=== PATIENT | female | born 1940 | race Caucasian/White ===

== ENCOUNTER 2017-09-07 07:17 | Day surgery (SDC) | payer MEDICARE ==
--- NOTE | 2017-09-04 13:33 | HP ---
DATE OF SURGERY: 09/07/2017 ADMISSION DIAGNOSIS: Subcutaneous mass 6 cm right upper extremity. ANTICIPATED PROCEDURE: Excision. HISTORY OF PRESENT ILLNESS: The patient has enlarging lesion right upper extremity subcu mass probable lipoma. PAST MEDICAL HISTORY: ALLERGIES: NONE. MEDICATIONS: Aspirin, Coreg, Lasix, Elsie, Zestril. PAST SURGICAL HISTORY: Oophorectomy. SOCIAL HISTORY: Negative. FAMILY HISTORY: Negative. REVIEW OF SYSTEMS: Atrial fibrillation. PHYSICAL EXAMINATION: VITAL SIGNS: Normal. CHEST: Clear. COR: Regular. IMPRESSION: Lesion right upper arm. PLAN: Excision.
[~2017-09-07 07:17] MED LIST: Lactated Ringers 1,000 ML IV ONE; Lactated Ringers 1,000 ML IV SCH; XYLOCAINE 1% HCL 20 ML MDV ONE
[2017-09-07] MEDS ORDERED: DEMEROL 50 MG SDV IV ONE (07:18)
[2017-09-07] MEDS ORDERED: VERSED 5 MG/5 ML IV ONE (07:18)
[2017-09-07] MEDS ORDERED: Lactated Ringers 0 ML IV ONE (07:30)
[2017-09-07 08:46] LABS: INR 1.03 (0.8-3.0)
[2017-09-07 11:38] VITALS: O2SAT 96
[2017-09-07 12:03] VITALS: BP 120/66; PULSE 62
--- NOTE | 2017-09-07 14:12 | OP ---
SURGERY DATE/TIME: 09/07/2017 0935 PREOPERATIVE DIAGNOSIS: A 4 cm subcutaneous mass right upper arm both enlarging and painful. POSTOPERATIVE DIAGNOSIS: A 4 cm subcutaneous mass right upper arm both enlarging and painful. PROCEDURE: Excision and closure. SURGEON: Desean Castillo M.D. ANESTHESIA: 15 minutes IV sedation monitored. COMPLICATIONS: None. CONDITION: Stable. INDICATION: A patient requiring removal of a lesion on the upper arm. DESCRIPTION OF PROCEDURE: She is taken to surgery. IV sedation was titrated for 15 minutes. Oximetry is kept over 90% and comfort level satisfactory. Routine prep and drape. Time out. 1% lidocaine was placed. A multi-lobular lipoma was removed in its entirety. It was 4 cm. Hemostasis obtained with electrocautery. Hemostasis satisfactory. Skin closed with 4-0 Vicryl and Steri-Strips. The patient tolerated the procedure satisfactorily.
== END 2017-09-07 12:00 | disposition home or self-care (01) ==
LOC: SDC 07:17
PROVIDERS: ATTEND Surgery
PROC: 0JBD0ZZ Excision of Right Upper Arm Subcutaneous Tissue and Fascia, Open Approach (ICD-10-PCS; principal; 2017-09-07)
DX: D17.21 Benign lipomatous neoplasm of skin and subcutaneous tissue of right arm (principal); R22.31 Localized swelling, mass and lump, right upper limb; R20.8 Other disturbances of skin sensation; I48.91 Unspecified atrial fibrillation; Z79.01 Long term (current) use of anticoagulants; Z79.899 Other long term (current) drug therapy
CPT/HCPCS: 36415; 85610; J2175; J2250

== ENCOUNTER 2018-11-04 06:46 | Emergency (ER) | payer MEDICARE ==
[2018-11-04] MEDS ORDERED: Sodium Chloride 0.9% 1000 ML 1,000 ML IV STA (07:13)
[2018-11-04] MEDS ORDERED: Sodium Chloride 0.9% 1000 ML 1,000 ML ONE (07:19)
[2018-11-04 07:26] LABS: BASOPHIL % 0.2 % (0.0-0.4); Basophil (Absolute #) 0.02 (0-0.4); Eosinophil % 0.2 % (0.00-5.0); Eosinophil (Absolute #) 0.03 (0-0.5); Granulocyte Absolute (ANC) 9.78 (1.4-6.9); Granulocytes % 80.8 % (36.0-66.0); Hematocrit 32.1 % (35-47); Hemoglobin 10.4 gm/dl (12.0-16.0); Lymphocyte (Absolute #) 1.44 (1.0-4.6); Lymphocytes % 11.9 % (24.0-44.0); Mean Cell Volume 93.3 fl (78-100); Mean Corpuscular Hemoglobin 30.2 pg (26-32); Mean Corpuscular Hgb Concent. 32.4 g/dl (32-36); Mean Platelet Volume 11.1 fl (6-9.5); Monocyte (Absolute #) 0.83 (0.0-1.3); Monocytes % 6.9 % (0.0-12.0); Platelet Count 204 K/mm3 (150-450); Red Blood Count 3.44 M/mm3 (4.1-5.4); Red Cell Distribution Width 13.6 % (11.5-14.0); White Blood Count 12.1 K/mm3 (4.0-10.5)
[2018-11-04 07:31] LABS: Lactic Acid 1.9 (0.4-2.0)
[2018-11-04 07:37] LABS: ALBUMIN 3.7 g/dL (3.5-5.0); ALKALINE PHOSPHATASE 71 U/L (38-126); ANION GAP 12.2 MEQ/L (5-15); BLOOD UREA NITROGEN 65 mg/dL (7-17); CHLORIDE 105 mmol/L (98-107); Calcium 9.8 mg/dL (8.4-10.2); Carbon Dioxide 25 mmol/L (22-30); Glucose 121 mg/dL (74-106); LIPASE 50 U/L (23-300); Potassium 4.2 mmol/L (3.5-5.1); SGOT/AST 20 U/L (14-36); SGPT/ALT 14 U/L (0-35); SODIUM 137 mmol/L (137-145); Total Protein 6.6 g/dL (6.3-8.2)
[2018-11-04 08:02] LABS: INR 9.89 (0.8-3.0); PROTIME 117.7 SECONDS (9.95-12.35)
[2018-11-04] MEDS ORDERED: Vitamin K 10 MG/ML PO ONE (08:24)
[2018-11-04] MEDS ORDERED: Vitamin K 10 MG/ML ONE (08:41)
[2018-11-04 10:13] VITALS: O2SAT 97
[2018-11-04 10:16] LABS: Appearance CLEAR (CLEAR); Bacteria RARE /HPF (NEGATIVE); Bilirubin NEGATIVE (NEGATIVE); Blood LARGE Ery/ul (0-5); Glucose NEGATIVE (NEGATIVE); Ketones NEGATIVE (NEGATIVE); Leukocyte Esterase TRACE (NEGATIVE); Mucus SLIGHT /HPF (NEGATIVE); Nitrite NEGATIVE (NEGATIVE); Protein,Urine Dip NEGATIVE (Negative); Specific Gravity 1.043 (1.005-1.025); Urobilinogen NEGATIVE mg/dL (0-1); WBC 0-2 /HPF (0-5)
--- NOTE | 2018-11-04 11:12 | ERPHSYRPT ---
- History of Present Illness Historian: patient Exam Limitations: no limitations Patient Subjective Stated Complaint: pt states for the last 2 days she has had abdominal pain and diarrhea. tonight her stools starting turning black and then she had bright red bleeding Triage Nursing Assessment: pt brought in by EMS. alert & oriented. skin pale. respirations easy and non-labored. abdomen soft and tender, bowel sounds present Physician History: Pt is a 78 y/o female that is on Coumadin for "thick blood", that did not check her INR for a while. She had today bright red blood in the stool, and developed severe abdominal pain. Pt stated, that as she had the bloody stool, she had left chest pressure and discomfort in her left arm. Pt denies vomiting. No F/C/S. Pt states, had no h/o CAD or stents. Pt states, abdominal pain is worse on the RUQ. Timing/Duration: today Activities at Onset: other (being in the bathroom, having BM.) Quality: aching, pressure Abdominal Pain Onset Location: RUQ, epigastric Severity of Pain-Max: moderate Severity of Pain-Current: moderate Modifying Factors: Improves With: nothing Associated Symptoms: chest pain Previous symptoms: no prior history Allergies/Adverse Reactions: ceftriaxone sodium [From Rocephin] Allergy (Unknown, Verified 09/07/17 07:33) levofloxacin [From Levaquin] Allergy (Unknown, Verified 09/07/17 07:33) Home Medications: Hydrocodone/APAP 5/325 [[place] 5/325 mg] 1 each PO BID PRN PRN 11/27/12 [ History] Furosemide 40 mg [Lasix 40 MG] 40 mg PO DAILY 12/06/12 [History] Magnesium Oxide 400 mg [Mag-Ox 400] 400 mg PO DAILY 12/06/12 [History] Potassium Chloride 10 Meq Tab* [Klor Con 10 MEQ] 10 meq PO DAILY 12/06/12 [ History] Metoprolol Tartrate 25 mg [Lopressor 25MG Tab] 100 mg PO DAILY 03/19/13 [ History] Warfarin Sodium 2.5 mg [Coumadin 2.5 MG] 5 mg PO UD 03/19/13 [History] Budesonide/Formoterol Fumarate [Symbicort 160-4.5 Mcg Inhaler] 6 gm IH DAILY PRN 08/29/17 [History] Methimazole [Northyx] 20 mg PO DAILY 08/29/17 [History] Hx Tetanus, Diphtheria Vaccination/Date Given: No Hx Influenza Vaccination/Date Given: No Hx Pneumococcal Vaccination/Date Given: No - Review of Systems Constitutional: Fatigue, Lethargy, Weakness Eyes: No Symptoms Ears, Nose, & Throat: No Symptoms Respiratory: No Cough, No Dyspnea Cardiac: Chest Pain Abdominal/Gastrointestinal: Abdominal Pain, Hematochezia Genitourinary Symptoms: Hematuria Musculoskeletal: No Back Pain, No Neck Pain Skin: No Rash Neurological: No Dizziness, No Focal Weakness, No Sensory Changes Psychological: No Symptoms Endocrine: No Symptoms - Past Medical History Pertinent Past Medical History: Yes Neurological History: No Pertinent History ENT History: No Pertinent History Cardiac History: Arrhythmia Respiratory History: CHF, COPD Endocrine Medical History: No Pertinent History Musculoskeletal History: No Pertinent History GI Medical History: No Pertinent History History: No Pertinent History Psycho-Social History: No Pertinent History Female Reproductive Disorders: Cervical Cancer Other Medical History: SHINGLES, AFIB DX IN NOVEMBER - Past Surgical History Past Surgical History: Yes Neuro Surgical History: No Pertinent History Cardiac: Cardiac Catheterization Respiratory: No Pertinent History Gastrointestinal: No Pertinent History Genitourinary: No Pertinent History Musculoskeletal: No Pertinent History Female Surgical History: Hysterectomy, Tubal Ligation - Social History Smoking Status: Current every day smoker How long have you smoked: age 16 Exposure to second hand smoke: Yes Drug Use: none Patient Lives Alone: Yes - Nursing Vital Signs Nursing Vital Signs: Initial Vital Signs Pulse Rate 94 H 11/04/18 06:50 Blood Pressure 109/61 11/04/18 06:50 O2 Sat by Pulse Oximetry 83 L 11/04/18 06:50 Pain Scale Pain Intensity 3 - Physical Exam General Appearance: moderate distress Eye Exam: PERRL/EOMI, eyes nml inspection Ears, Nose, Throat Exam: normal ENT inspection, pharynx normal, moist mucous membranes Neck Exam: normal inspection, non-tender, supple, full range of motion Respiratory Exam: normal breath sounds, lungs clear, No respiratory distress Cardiovascular Exam: regular rate/rhythm, normal heart sounds Gastrointestinal/Abdomen Exam: soft, tenderness (RUQ) Rectal Exam: normal rectal tone, blood Back Exam: normal inspection, normal range of motion, No CVA tenderness, No vertebral tenderness Extremity Exam: normal inspection, normal range of motion, pelvis stable Neurologic Exam: alert, oriented x 3, cooperative, normal mood/affect, nml cerebellar function, sensation nml, No motor deficits Skin Exam: normal color, warm, dry SpO2: 97 - Course Nursing assessment & vital signs reviewed: Yes EKG Interpreted by Me: RATE (79bpm), Right Bundle Branch Block - CT Exams Abdomen/Pelvis CT Interpretation: Tele-radiologist Report (Liver lesion, pericardial effusion, moderate.) Ordered Tests: Active Orders 24 hr Category Date Time Status Cable Splicer STAT Care 11/04/18 07:26 Active EKG-ER Only STAT Care 11/04/18 07:26 Active IV Insertion STAT Care 11/04/18 07:13 Active ABDOMEN AND PELVIS W CONTRAST [CT] Stat Exams 11/04/18 07:14 Taken CBC W DIFF Stat Lab 11/04/18 07:15 Completed CMP Stat Lab 11/04/18 07:15 Completed CULTURE,URINE Stat Lab 11/04/18 10:00 Received LIPASE Stat Lab 11/04/18 07:15 Completed Lactic Acid Stat Lab 11/04/18 07:13 Completed Lactic Acid Stat Lab 11/04/18 09:31 Results Occult Blood, Other Screening Stat Lab 11/04/18 07:44 Completed PT INR [PROTIME WITH INR] Stat Lab 11/04/18 07:15 Completed TROPONIN Q3H Lab 11/04/18 07:15 Completed TROPONIN Q3H Lab 11/04/18 10:45 Received TROPONIN Q3H Lab 11/04/18 13:30 Ordered TROPONIN Q3H Lab 11/04/18 16:30 Ordered TROPONIN Q3H Lab 11/04/18 19:30 Ordered UA W/RFX UR CULTURE Stat Lab 11/04/18 10:00 Completed Medication Summary Discontinued Medications Generic Name Dose Route Start Last Admin Trade Name Freq PRN Reason Stop Dose Admin Sodium Chloride 1,000 mls @ 999 mls/hr 11/04/18 07:13 11/04/18 09:32 Sodium Chloride 0.9% 1000 Ml IV 11/04/18 08:13 Infused .Q1H1M STA Infusion Sodium Chloride Confirm 11/04/18 07:19 Sodium Chloride 0.9% 1000 Ml Administered 11/04/18 07:20 Dose 1,000 mls @ ud .ROUTE .STK-MED ONE Phytonadione 5 mg 11/04/18 08:24 11/04/18 08:49 Vitamin K 10 Mg/Ml PO 11/04/18 08:25 5 mg STAT ONE Administration Phytonadione Confirm 11/04/18 08:41 Vitamin K 10 Mg/Ml Administered 11/04/18 08:42 Dose 10 mg .ROUTE .[facility] Lab/Rad Data: Laboratory Result Diagrams 11/04/18 07:15 11/04/18 07:15 Laboratory Results 11/04/18 11/04/18 11/04/18 Range/Units 10:00 09:31 07:44 WBC (4.0-10.5) K/mm3 RBC (4.1-5.4) M/mm3 Hgb (12.0-16.0) gm/dl Hct (35-47) % MCV (78-100) fl MCH (26-32) pg MCHC (32-36) g/dl RDW (11.5-14.0) % Plt Count (150-450) K/mm3 MPV (6-9.5) fl Gran % (36.0-66.0) % Eos # (Auto) (0-0.5) Absolute Lymphs (auto) (1.0-4.6) Absolute Monos (auto) (0.0-1.3) Lymphocytes % (24.0-44.0) % Monocytes % (0.0-12.0) % Eosinophils % (0.00-5.0) % Basophils % (0.0-0.4) % Absolute Granulocytes (1.4-6.9) Basophils # (0-0.4) PT (9.95-12.35) SECONDS INR (0.8-3.0) Sodium (137-145) mmol/L Potassium (3.5-5.1) mmol/L Chloride (98-107) mmol/L Carbon Dioxide (22-30) mmol/L Anion Gap (5-15) MEQ/L BUN (7-17) mg/dL Creatinine (0.52-1.04) mg/dL Estimated GFR ML/MIN Glucose (74-106) mg/dL Lactic Acid 2.0 (0.4-2.0) Calcium (8.4-10.2) mg/dL Total Bilirubin (0.2-1.3) mg/dL AST (14-36) U/L ALT (0-35) U/L Alkaline Phosphatase (38-126) U/L Troponin I (0.000-0.034) ng/mL Serum Total Protein (6.3-8.2) g/dL Albumin (3.5-5.0) g/dL Lipase (23-300) U/L Urine Color STRAW (YELLOW) Urine Appearance CLEAR (CLEAR) Urine pH 6.0 (5-6) Ur Specific [place] 1.043 (1.005-1.025) Urine Protein NEGATIVE (Negative) Urine Ketones NEGATIVE (NEGATIVE) Urine Blood LARGE (0-5) Bra[place]/ul Urine Nitrite NEGATIVE (NEGATIVE) Urine Bilirubin NEGATIVE (NEGATIVE) Urine Urobilinogen NEGATIVE (0-1) mg/dL Ur Leukocyte Esterase TRACE (NEGATIVE) Urine WBC (Auto) 0-2 (0-5) /HPF Urine RBC (Auto) 3-5 (0-2) /HPF U Epithel Cells (Auto) NONE (FEW) /HPF Urine Bacteria (Auto) RARE (NEGATIVE) /HPF Urine Mucus (Auto) SLIGHT (NEGATIVE) /HPF Urine Culture Reflexed YES (NO) Urine Glucose NEGATIVE (NEGATIVE) mg/dL Stool Occult Blood POSITIVE A (Negative) 11/04/18 11/04/18 11/04/18 Range/Units 07:15 07:15 07:15 WBC (4.0-10.5) K/mm3 RBC (4.1-5.4) M/mm3 Hgb (12.0-16.0) gm/dl Hct (35-47) % MCV (78-100) fl MCH (26-32) pg MCHC (32-36) g/dl RDW (11.5-14.0) % Plt Count (150-450) K/mm3 MPV (6-9.5) fl Gran % (36.0-66.0) % Eos # (Auto) (0-0.5) Absolute Lymphs (auto) (1.0-4.6) Absolute Monos (auto) (0.0-1.3) Lymphocytes % (24.0-44.0) % Monocytes % (0.0-12.0) % Eosinophils % (0.00-5.0) % Basophils % (0.0-0.4) % Absolute Granulocytes (1.4-6.9) Basophils # (0-0.4) PT 117.7 H (9.95-12.35) SECONDS INR 9.89 H* (0.8-3.0) Sodium 137 (137-145) mmol/L Potassium 4.2 (3.5-5.1) mmol/L Chloride 105 (98-107) mmol/L Carbon Dioxide 25 (22-30) mmol/L Anion Gap 12.2 (5-15) MEQ/L BUN 65 H (7-17) mg/dL Creatinine 0.80 (0.52-1.04) mg/dL Estimated GFR > 60.0 ML/MIN Glucose 121 H (74-106) mg/dL Lactic Acid (0.4-2.0) Calcium 9.8 (8.4-10.2) mg/dL Total Bilirubin 0.60 (0.2-1.3) mg/dL AST 20 (14-36) U/L ALT 14 (0-35) U/L Alkaline Phosphatase 71 (38-126) U/L Troponin I 0.021 (0.000-0.034) ng/mL Serum Total Protein 6.6 (6.3-8.2) g/dL Albumin 3.7 (3.5-5.0) g/dL Lipase 50 (23-300) U/L Urine Color (YELLOW) Urine Appearance (CLEAR) Urine pH (5-6) Ur Specific [place] (1.005-1.025) Urine Protein (Negative) Urine Ketones (NEGATIVE) Urine Blood (0-5) Braulio/ul Urine Nitrite (NEGATIVE) Urine Bilirubin (NEGATIVE) Urine Urobilinogen (0-1) mg/dL Ur Leukocyte Esterase (NEGATIVE) Urine WBC (Auto) (0-5) /HPF Urine RBC (Auto) (0-2) /HPF U Epithel Cells (Auto) (FEW) /HPF Urine Bacteria (Auto) (NEGATIVE) /HPF Urine Mucus (Auto) (NEGATIVE) /HPF Urine Culture Reflexed (NO) Urine Glucose (NEGATIVE) mg/dL Stool Occult Blood (Negative) 11/04/18 11/04/18 Range/Units 07:15 07:13 WBC 12.1 H (4.0-10.5) K/mm3 RBC 3.44 L (4.1-5.4) M/mm3 Hgb 10.4 L (12.0-16.0) gm/dl Hct 32.1 L (35-47) % MCV 93.3 (78-100) fl MCH 30.2 (26-32) pg MCHC 32.4 (32-36) g/dl RDW 13.6 (11.5-14.0) % Plt Count 204 (150-450) K/mm3 MPV 11.1 H (6-9.5) fl Gran % 80.8 H (36.0-66.0) % Eos # (Auto) 0.03 (0-0.5) Absolute Lymphs (auto) 1.44 (1.0-4.6) Absolute Monos (auto) 0.83 (0.0-1.3) Lymphocytes % 11.9 L (24.0-44.0) % Monocytes % 6.9 (0.0-12.0) % Eosinophils % 0.2 (0.00-5.0) % Basophils % 0.2 (0.0-0.4) % Absolute Granulocytes 9.78 H (1.4-6.9) Basophils # 0.02 (0-0.4) PT (9.95-12.35) SECONDS INR (0.8-3.0) Sodium (137-145) mmol/L Potassium (3.5-5.1) mmol/L Chloride (98-107) mmol/L Carbon Dioxide (22-30) mmol/L Anion Gap (5-15) MEQ/L BUN (7-17) mg/dL Creatinine (0.52-1.04) mg/dL Estimated GFR ML/MIN Glucose (74-106) mg/dL Lactic Acid 1.9 (0.4-2.0) Calcium (8.4-10.2) mg/dL Total Bilirubin (0.2-1.3) mg/dL AST (14-36) U/L ALT (0-35) U/L Alkaline Phosphatase (38-126) U/L Troponin I (0.000-0.034) ng/mL Serum Total Protein (6.3-8.2) g/dL Albumin (3.5-5.0) g/dL Lipase (23-300) U/L Urine Color (YELLOW) Urine Appearance (CLEAR) Urine pH (5-6) Ur Specific [place] (1.005-1.025) Urine Protein (Negative) Urine Ketones (NEGATIVE) Urine Blood (0-5) Braulio/ul Urine Nitrite (NEGATIVE) Urine Bilirubin (NEGATIVE) Urine Urobilinogen (0-1) mg/dL Ur Leukocyte Esterase (NEGATIVE) Urine WBC (Auto) (0-5) /HPF Urine RBC (Auto) (0-2) /HPF U Epithel Cells (Auto) (FEW) /HPF Urine Bacteria (Auto) (NEGATIVE) /HPF Urine Mucus (Auto) (NEGATIVE) /HPF Urine Culture Reflexed (NO) Urine Glucose (NEGATIVE) mg/dL Stool Occult Blood (Negative) - Progress Progress: unchanged Progress Note: 11/04/18 11:15 Pt was evaluated in the ER. She got 10mg of Vit K PO. 1 liter of IVF was given as well. As pt was found to have heme positive stool, and elevated INR, and liver lesion with pericardial effusion, she was transfered to [facility]. Dr Hernandez accepted the pt. Will see patient in: other (Transfer.) - Departure Departure Disposition: Home Clinical Impression: GI bleed Condition: Stable Critical Care Time: No Referrals: FAY JOHNSTON MD [Primary Care Provider] -
[2018-11-04 11:52] VITALS: BP 104/58; PULSE 87
[2018-11-04] MEDS ORDERED: MORPHINE SULFATE 2 MG INJ IV ONE (11:53)
[2018-11-04] MEDS ORDERED: MORPHINE SULFATE 2 MG INJ ONE (11:55)
[2018-11-04] MEDS ORDERED: Zofran 4 MG/2 ML VIAL IV ONE (12:11)
[2018-11-04] MEDS ORDERED: Zofran 4 MG/2 ML VIAL ONE (12:12)
--- NOTE | 2018-11-04 22:35 | XRAY ---
Indication: Mid to lower abdominal pain. Blood in stool. Diarrhea. Multiple contiguous axial images obtained through the abdomen and pelvis using 80 cc of Isovue-370 contrast only. Comparison: CT abdomen July 18, 2016. Lung bases demonstrates bibasilar fibrosis/scarring and tiny right effusion. Heart is enlarged with new moderate pericardial effusion. Noncontrasted stomach and bowel loops appear nonobstructed. Normal appendix. No free fluid/air. Previous hysterectomy, cholecystectomy, 4 mm left lobe hepatic cyst, and subcentimeter left renal cortical cysts. Remaining liver, pancreas, spleen, adrenal glands, kidneys, ureters, and bladder appear unremarkable. Mild scattered aortoiliac calcifications. No AAA or pathologic retroperitoneal lymphadenopathy. Osseous structures intact with stable T11 vertebral hemangioma and T12 superior endplate concave deformity. Impression: 1. New cardiomegaly with pericardial effusion. Echocardiogram may yield further information. 2. Incidental tiny right lung base effusion, hepatic cyst, and left renal cysts. 3. No acute intra-abdominal/pelvic abnormalities on this contrast exam. Comment: Preliminary interpretation was made by [facility]. No critical discrepancy. CTDI 11.21
== END 2018-11-04 12:20 | disposition short-term general hospital (02) ==
LOC: ED 06:46
DX: K92.2 Gastrointestinal hemorrhage, unspecified (principal); R19.7 Diarrhea, unspecified; Z79.01 Long term (current) use of anticoagulants; J44.9 Chronic obstructive pulmonary disease, unspecified; I50.9 Heart failure, unspecified; Z85.41 Personal history of malignant neoplasm of cervix uteri; I48.91 Unspecified atrial fibrillation
CPT/HCPCS: 36000; 36415; 74177; 80053; 81001; 82272; 83605; 83690; 84484; 85025; 85610; 87086; 93005; 93041; 96360; 96374; 96375; 99285; J2270; J2405; J3430

== ENCOUNTER 2019-01-11 18:39 | Emergency (ER) | payer MEDICARE ==
[2019-01-11 18:52] VITALS: O2SAT 100
--- NOTE | 2019-01-11 19:15 | ERPHSYRPT ---
- History of Present Illness Time Seen by Provider: 01/11/19 19:00 Source: patient Exam Limitations: clinical condition Patient Subjective Stated Complaint: STATES HAS FELT BAD SINCE THE LAST WEEK OF NOVEMBER. HAD A PACEMAKER PUT IN AT THAT TIME AND HASN'T FELT WELL SINCE THEN. HAVING NAUSEA AND DIZZINESS. WAS IN [facility] TODAY AND HAD A DIZZY SPELL. Triage Nursing Assessment: ARRIVES PER EMS COT. SKIN W/D, COLOR NORMAL, RESP EASY. A/O TIMES FOUR. Physician History: PATIENT WITH A HISTORY OF ATRIAL FIBRILLATION, COPD, CHF, PACEMAKER INSERTION 1 MONTH COMPLAINS OF ACUTE ONSET OF DIZZINESS AT [facility], NEAR SYNCOPE. DENIES FALL, LOSS OF CONSCIOUSNESS, HEADACHE , BLURRED VISION, SLURRED SPEECH, FOCAL NUMBNESS, TINGLING OR WEAKNESS IN EXTREMITIES. ADMITS TO BEING OUT OF HER METOPROLOL FOR 3 DAYS, BUT TOOK A DOSE PRIOR TO ARRIVAL. Timing/Duration: today Severity: mild Character of Deficits: none Deficits: no difficulties Baseline/Normal Cognition: alert oriented x 3 Current Cognition: alert oriented x 3 Baseline Gait: walks w/o assistance Associated Symptoms: other (FELT FAINT) Allergies/Adverse Reactions: ceftriaxone sodium [From Rocephin] Allergy (Unknown, Verified 01/11/19 19:07) levofloxacin [From Levaquin] Allergy (Unknown, Verified 01/11/19 19:07) Home Medications: Hydrocodone/APAP 5/325 [[place] 5/325 mg] 1 each PO BID PRN PRN 11/27/12 [ History] Furosemide 40 mg [Lasix 40 MG] 40 mg PO DAILY 12/06/12 [History] Metoprolol Tartrate 25 mg [Lopressor 25MG Tab] 100 mg PO DAILY 03/19/13 [ History] Budesonide/Formoterol Fumarate [Symbicort 160-4.5 Mcg Inhaler] 6 gm IH DAILY PRN 08/29/17 [History] Hx Tetanus, Diphtheria Vaccination/Date Given: No Hx Influenza Vaccination/Date Given: No Hx Pneumococcal Vaccination/Date Given: No - Review of Systems Constitutional: No Fever, No Chills Eyes: No Symptoms Ears, Nose, & Throat: No Symptoms Respiratory: No Symptoms, No Cough, No Dyspnea Cardiac: No Symptoms, No Chest Pain, No Edema, No Syncope Abdominal/Gastrointestinal: No Abdominal Pain, No Nausea, No Vomiting, No Diarrhea Genitourinary Symptoms: No Symptoms, No Dysuria Musculoskeletal: No Symptoms, No Back Pain, No Neck Pain Skin: No Rash Neurological: Other (NEAR SYNCOPE), No Dizziness, No Focal Weakness, No Sensory Changes Psychological: No Symptoms Endocrine: No Symptoms All Other Systems: Reviewed and Negative - Past Medical History Pertinent Past Medical History: Yes Neurological History: No Pertinent History ENT History: No Pertinent History Cardiac History: Arrhythmia Respiratory History: CHF, COPD Endocrine Medical History: No Pertinent History Musculoskeletal History: No Pertinent History GI Medical History: No Pertinent History History: No Pertinent History Psycho-Social History: No Pertinent History Female Reproductive Disorders: Cervical Cancer Other Medical History: SHINGLES, AFIB DX IN NOVEMBER - Past Surgical History Past Surgical History: Yes Neuro Surgical History: No Pertinent History Cardiac: Cardiac Catheterization Respiratory: No Pertinent History Gastrointestinal: No Pertinent History Genitourinary: No Pertinent History Musculoskeletal: No Pertinent History Female Surgical History: Hysterectomy, Tubal Ligation - Social History Smoking Status: Current every day smoker How long have you smoked: age 16 Exposure to second hand smoke: Yes Drug Use: none Patient Lives Alone: Yes - Female History Hx Now: No - Nursing Vital Signs Nursing Vital Signs: Initial Vital Signs Temperature 98 F 01/11/19 18:43 Pulse Rate 128 H 01/11/19 18:43 Respiratory Rate 18 01/11/19 18:43 Blood Pressure 134/81 01/11/19 18:43 O2 Sat by Pulse Oximetry 100 01/11/19 18:43 Pain Scale Pain Intensity 0 - [place] Coma Scale Best Eye Response (Arnie): (4) open spontaneously Best Verbal Response ([place]): (5) oriented Best Motor Response ([place]): (6) obeys commands Arnie Total: 15 - Physical Exam General Appearance: no apparent distress, alert Eye Exam: bilateral eye: normal inspection, PERRL, EOMI Ears, Nose, Throat Exam: normal ENT inspection, moist mucous membranes Neck Exam: normal inspection, non-tender, supple Respiratory: normal breath sounds, lungs clear, airway intact, No respiratory distress Cardiovascular: regular rate/rhythm, No edema Gastrointestinal: soft, normal bowel sounds (NONTENDER), No tenderness, No distention Back Exam: normal inspection Extremity Exam: normal inspection, No pedal edema Peripheral Pulses: carotid (R): 2+, carotid (L): 2+, femoral (R): 2+, femoral (L ): 2+, dorsalis-pedis (R): 2+, dorsalis-pedis (L): 2+ 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, 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 Exam: normal hearing, normal speech, PERRL, tongue midline Coordination/Gait: normal finger to nose, normal gait DTR: bicep (R): 2+, bicep (L): 2+, tricep (R): 2+, tricep (L): 2+, knee (R): 2+ , knee (L): 2+, ankle (R): 2+, ankle (L): 2+ Skin Exam: normal color, warm, dry, No rash SpO2 Interpretation: normal SpO2: 100 Ordered Tests: Active Orders 24 hr Category Date Time Status 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 Care 01/11/19 19:17 Active EKG-ER Only STAT Care 01/11/19 19:16 Active Oxygen-ED Only Nasal Cannula 2 lpm Care 01/11/19 19:16 Active CHEST 1 VIEW (PORTABLE) Stat Exams 01/11/19 19:13 Ordered CBC W DIFF Stat Lab 01/11/19 19:12 Ordered CMP Stat Lab 01/11/19 19:12 Ordered ETHYL ALCOHOL Stat Lab 01/11/19 19:12 Ordered Lactic Acid Stat Lab 01/11/19 19:16 Ordered MAGNESIUM Stat Lab 01/11/19 19:12 Ordered PROTIME WITH INR Stat Lab 01/11/19 19:16 Ordered TROPONIN Q3H Lab 01/11/19 19:15 Ordered TROPONIN Q3H Lab 01/11/19 22:15 Ordered TROPONIN Q3H Lab 01/12/19 01:15 Ordered TROPONIN Q3H Lab 01/12/19 04:15 Ordered TROPONIN Q3H Lab 01/12/19 07:15 Ordered UA W/RFX UR CULTURE Stat Lab 01/11/19 19:13 Ordered Medication Summary Generic Name Dose Route Start Last Admin Trade Name Freq PRN Reason Stop Dose Admin Sodium Chloride 1,000 mls @ 250 mls/hr 01/11/19 19:30 Sodium Chloride 0.9% 1000 Ml IV 02/10/19 19:29 .Q4H JAZZMINE Discontinued Medications Generic Name Dose Route Start Last Admin Trade Name Freq PRN Reason Stop Dose Admin Ondansetron HCl 4 mg 01/11/19 19:18 Zofran 4 Mg/2 Ml Vial IV 01/11/19 19:19 STAT ONE - Progress Progress Note: 01/11/19 20:09 ADMITS TO FEELING BETTER AFTER TAKING HER METOPROLOL, REFUSES LAB DRAW, IV CHEST XRAY. RISKS VS BENEFIT DISCUSSED WITH PATIENT WHO REQUEST TO SIGN AGAINST MEDICAL ADVISE. - Departure Departure Disposition: Home, AMA Clinical Impression: [place], NEAR SYNCOPE Condition: Stable Critical Care Time: No Referrals: FAY JOHNSTON MD [Primary Care Provider] - Additional Instructions: CONTINUE ALL CURRENT MEDICATIONS DIRECTED. CONSULT YOUR PRIMARY CARE PROVIDER FOR FOLLOWUP. RETURN TO EMERGENCY ROOM FOR PERSISTENT SYMPTOMS.
[2019-01-11] MEDS ORDERED: Zofran 4 MG/2 ML VIAL IV ONE (19:18)
[2019-01-11] MEDS ORDERED: Sodium Chloride 0.9% 1000 ML 1,000 ML IV SCH (19:30)
[2019-01-11 20:12] VITALS: BP 102/78; PULSE 80
== END 2019-01-11 20:35 | disposition left against medical advice (07) ==
LOC: ED 18:39
DX: R42 Dizziness and giddiness (principal); R55 Syncope and collapse; I48.91 Unspecified atrial fibrillation; J44.9 Chronic obstructive pulmonary disease, unspecified; I50.9 Heart failure, unspecified; Z95.0 Presence of cardiac pacemaker; Z79.899 Other long term (current) drug therapy
CPT/HCPCS: 93041; 99284

== ENCOUNTER 2019-01-24 01:33 | Inpatient (IN) | payer MEDICARE ==
--- NOTE | 2019-01-24 02:04 | ERPHSYRPT ---
- History of Present Illness Time Seen by Provider: 01/24/19 02:00 Historian: patient, family Patient Subjective Stated Complaint: pt is alert and oriented. pt comes in via ambulance with c/o abdominal pain, N/V for "months" and most recently the past "2 weeks." pt states she has vomitted "like crazy" today and it was "sharp". pt denies following up with her family doctor. pt is tender to RLQ. pt denies diarrhea aside from 2 episodes yesterday. pt states she has been unable to eat. Triage Nursing Assessment: see above Physician History: 78 y/o white female with h/o afib presents with recurrent intermittent abdominal pain for months with associated n/v. pt underwent a ct abd/pelvis without any acute findings. she has since then had a nl colonoscopy per report. pt has vomited several times. cannot hold any liquids down.mpt denies cp and denies soa. pt has a pacemaker in place. Timing/Duration: intermittent, worse Quality: sharpness, stabbing Abdominal Pain Onset Location: RUQ, LUQ, epigastric Pain Radiation: no radiation Severity of Pain-Max: moderate Severity of Pain-Current: moderate Modifying Factors: Improves With: vomiting Associated Symptoms: nausea, vomiting Previous symptoms: same symptoms as today Allergies/Adverse Reactions: ceftriaxone sodium [From Rocephin] Allergy (Unknown, Verified 01/11/19 19:07) levofloxacin [From Levaquin] Allergy (Unknown, Verified 01/11/19 19:07) Home Medications: Hydrocodone/APAP 5/325 [[place] 5/325 mg] 1 each PO BID PRN PRN 11/27/12 [ History] Furosemide 40 mg [Lasix 40 MG] 40 mg PO DAILY 12/06/12 [History] Metoprolol Tartrate 25 mg [Lopressor 25MG Tab] 100 mg PO DAILY 03/19/13 [ History] Budesonide/Formoterol Fumarate [Symbicort 160-4.5 Mcg Inhaler] 6 gm IH DAILY PRN 08/29/17 [History] Lorazepam 0.5 mg [Ativan 0.5 MG] 0.5 mg PO DAILY PRN PRN 01/24/19 [History ] Omeprazole 20 mg PO DAILY 01/24/19 [History] Rivaroxaban [Xarelto] 20 mg PO DAILY 01/24/19 [History] Sucralfate [Carafate] 10 ml PO ACHS 01/24/19 [History] Hx Tetanus, Diphtheria Vaccination/Date Given: No Hx Influenza Vaccination/Date Given: No Hx Pneumococcal Vaccination/Date Given: No Immunizations Up to Date: Yes - Review of Systems Constitutional: No Symptoms Eyes: No Symptoms Ears, Nose, & Throat: No Symptoms Respiratory: No Symptoms Cardiac: No Symptoms Abdominal/Gastrointestinal: Abdominal Pain, Nausea, Vomiting Genitourinary Symptoms: No Symptoms Musculoskeletal: No Symptoms Skin: No Symptoms Neurological: No Symptoms Psychological: No Symptoms Endocrine: No Symptoms Hematologic/Lymphatic: No Symptoms Immunological/Allergic: No Symptoms All Other Systems: Reviewed and Negative - Past Medical History Pertinent Past Medical History: Yes Neurological History: No Pertinent History ENT History: No Pertinent History Cardiac History: Arrhythmia Respiratory History: CHF, COPD Endocrine Medical History: No Pertinent History Musculoskeletal History: No Pertinent History GI Medical History: No Pertinent History History: No Pertinent History Psycho-Social History: No Pertinent History Female Reproductive Disorders: Cervical Cancer Other Medical History: SHINGLES, AFIB DX IN NOVEMBER - Past Surgical History Past Surgical History: Yes Neuro Surgical History: No Pertinent History Cardiac: Cardiac Catheterization Respiratory: No Pertinent History Gastrointestinal: No Pertinent History Genitourinary: No Pertinent History Musculoskeletal: No Pertinent History Female Surgical History: Hysterectomy, Tubal Ligation - Social History Smoking Status: Current every day smoker How long have you smoked: age 16 Exposure to second hand smoke: Yes Drug Use: none Patient Lives Alone: Yes - Nursing Vital Signs Nursing Vital Signs: Initial Vital Signs Pulse Rate 134 H 01/24/19 01:41 Respiratory Rate 18 01/24/19 01:41 Blood Pressure 143/94 01/24/19 01:41 O2 Sat by Pulse Oximetry 98 01/24/19 01:41 Pain Scale Pain Intensity 5 - Physical Exam General Appearance: mild distress, alert, anxiety Eye Exam: PERRL/EOMI, eyes nml inspection Ears, Nose, Throat Exam: normal ENT inspection, moist mucous membranes Neck Exam: normal inspection, non-tender, supple, full range of motion Respiratory Exam: normal breath sounds, lungs clear, airway intact, No chest tenderness, No respiratory distress Cardiovascular Exam: irregular Gastrointestinal/Abdomen Exam: soft, normal bowel sounds, tenderness ( generalized. 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 nml as tested Skin Exam: normal color, warm, dry Lymphatic Exam: No adenopathy SpO2 Interpretation: normal SpO2: 98 O2 Delivery: Room Air - Course Nursing assessment & vital signs reviewed: Yes EKG Interpreted by Me: RATE (133), A-fib, NORMAL AXIS, Right Bundle Branch Block , Non-specific ST Changes, Other (comparison ekg 11/04/18) Ordered Tests: Active Orders 24 hr Category Date Time Status EKG-ER Only STAT Care 01/24/19 02:18 Active IV Insertion STAT Care 01/24/19 02:18 Active ABDOMEN AND PELVIS W/0 CONTRAS [CT] Stat Exams 01/24/19 02:19 Taken AMYLASE Stat Lab 01/24/19 02:18 Completed CBC W DIFF Stat Lab 01/24/19 02:18 Completed CMP Stat Lab 01/24/19 02:18 Completed LIPASE Stat Lab 01/24/19 02:18 Completed Lactic Acid Stat Lab 01/24/19 02:58 Completed TROPONIN Q3H Lab 01/24/19 03:43 Completed TROPONIN Q3H Lab 01/24/19 05:38 Received TROPONIN Q3H Lab 01/24/19 08:30 Ordered TROPONIN Q3H Lab 01/24/19 11:30 Ordered TROPONIN Q3H Lab 01/24/19 14:30 Ordered UA W/RFX UR CULTURE Stat Lab 01/24/19 02:19 Ordered Medication Summary Generic Name Dose Route Start Last Admin Trade Name Freq PRN Reason Stop Dose Admin Sodium Chloride 1,000 mls @ 100 mls/hr 01/24/19 02:30 01/24/19 05:14 Sodium Chloride 0.9% 1000 Ml IV 02/23/19 02:29 100 mls/hr .Q10H JAZZMINE Infusion Discontinued Medications Generic Name Dose Route Start Last Admin Trade Name Freq PRN Reason Stop Dose Admin Diltiazem HCl 15 mg 01/24/19 02:33 01/24/19 03:15 Cardizem Iv 50 Mg/10 Ml IV 01/24/19 02:34 15 mg STAT ONE Administration Diltiazem HCl Confirm 01/24/19 03:13 Cardizem Iv 50 Mg/10 Ml Administered 01/24/19 03:14 Dose 50 mg IV .STK-MED ONE Diltiazem HCl 5 mg 01/24/19 05:41 01/24/19 05:54 Cardizem Iv 50 Mg/10 Ml IV 01/24/19 05:42 5 mg STAT ONE Administration Famotidine 40 mg 01/24/19 06:42 01/24/19 06:45 Pepcid 20 Mg Vial IV 01/24/19 06:43 40 mg STAT ONE Administration Famotidine Confirm 01/24/19 06:43 Pepcid 20 Mg Vial Administered 01/24/19 06:44 Dose 40 mg IV .STK-MED ONE Hydromorphone HCl 0.5 mg 01/24/19 02:18 01/24/19 06:18 Hydromorphone 1 Mg/Ml Ampule IV 01/24/19 02:19 Not Given STAT ONE Hydromorphone HCl Confirm 01/24/19 02:55 Hydromorphone 1 Mg/Ml Ampule Administered 01/24/19 02:56 Dose 1 mg .ROUTE .STK-MED ONE Metoprolol Tartrate 2.5 mg 01/24/19 02:22 01/24/19 03:02 Lopressor 5 Mg/5 Ml Injection IV 01/24/19 02:23 0.75 mg STAT ONE Administration Metoprolol Tartrate Confirm 01/24/19 02:54 Lopressor 5 Mg/5 Ml Injection Administered 01/24/19 02:55 Dose 5 mg IV .STK-MED ONE Ondansetron HCl 4 mg 01/24/19 02:18 01/24/19 03:02 Zofran 4 Mg/2 Ml Vial IV 01/24/19 02:19 4 mg STAT ONE Administration Ondansetron HCl Confirm 01/24/19 02:54 Zofran 4 Mg/2 Ml Vial Administered 01/24/19 02:55 Dose 4 mg .ROUTE .STK-MED ONE Lab/Rad Data: Laboratory Result Diagrams 01/24/19 02:18 01/24/19 02:18 Laboratory Results 01/24/19 01/24/19 01/24/19 Range/Units 03:43 02:58 02:18 WBC (4.0-10.5) K/mm3 RBC (4.1-5.4) M/mm3 Hgb (12.0-16.0) gm/dl Hct (35-47) % MCV (78-100) fl MCH (26-32) pg MCHC (32-36) g/dl RDW (11.5-14.0) % Plt Count (150-450) K/mm3 MPV (6-9.5) fl Gran % (36.0-66.0) % Eos # (Auto) (0-0.5) Absolute Lymphs (auto) (1.0-4.6) Absolute Monos (auto) (0.0-1.3) Lymphocytes % (24.0-44.0) % Monocytes % (0.0-12.0) % Eosinophils % (0.00-5.0) % Basophils % (0.0-0.4) % Absolute Granulocytes (1.4-6.9) Basophils # (0-0.4) Sodium 138 (137-145) mmol/L Potassium 3.2 L (3.5-5.1) mmol/L Chloride 102 (98-107) mmol/L Carbon Dioxide 23 (22-30) mmol/L Anion Gap 16.5 H (5-15) MEQ/L BUN 31 H (7-17) mg/dL Creatinine 0.79 (0.52-1.04) mg/dL Estimated GFR > 60.0 ML/MIN Glucose 111 H (74-106) mg/dL Lactic Acid 1.5 (0.4-2.0) Calcium 10.0 (8.4-10.2) mg/dL Total Bilirubin 0.60 (0.2-1.3) mg/dL AST 33 (14-36) U/L ALT 24 (0-35) U/L Alkaline Phosphatase 99 (38-126) U/L Troponin I 0.020 (0.000-0.034) ng/mL Serum Total Protein 7.2 (6.3-8.2) g/dL Albumin 3.9 (3.5-5.0) g/dL Amylase 82 (30-110) U/L Lipase 152 (23-300) U/L 01/24/19 Range/Units 02:18 WBC 5.4 (4.0-10.5) K/mm3 RBC 4.98 (4.1-5.4) M/mm3 Hgb 13.0 (12.0-16.0) gm/dl Hct 39.9 (35-47) % MCV 80.1 (78-100) fl MCH 26.1 (26-32) pg MCHC 32.6 (32-36) g/dl RDW 16.5 H (11.5-14.0) % Plt Count 211 (150-450) K/mm3 MPV 9.9 H (6-9.5) fl Gran % 80.1 H (36.0-66.0) % Eos # (Auto) 0.02 (0-0.5) Absolute Lymphs (auto) 0.63 L (1.0-4.6) Absolute Monos (auto) 0.41 (0.0-1.3) Lymphocytes % 11.7 L (24.0-44.0) % Monocytes % 7.6 (0.0-12.0) % Eosinophils % 0.4 (0.00-5.0) % Basophils % 0.2 (0.0-0.4) % Absolute Granulocytes 4.33 (1.4-6.9) Basophils # 0.01 (0-0.4) Sodium (137-145) mmol/L Potassium (3.5-5.1) mmol/L Chloride (98-107) mmol/L Carbon Dioxide (22-30) mmol/L Anion Gap (5-15) MEQ/L BUN (7-17) mg/dL Creatinine (0.52-1.04) mg/dL Estimated GFR ML/MIN Glucose (74-106) mg/dL Lactic Acid (0.4-2.0) Calcium (8.4-10.2) mg/dL Total Bilirubin (0.2-1.3) mg/dL AST (14-36) U/L ALT (0-35) U/L Alkaline Phosphatase (38-126) U/L Troponin I (0.000-0.034) ng/mL Serum Total Protein (6.3-8.2) g/dL Albumin (3.5-5.0) g/dL Amylase (30-110) U/L Lipase (23-300) U/L - Progress Progress: unchanged Progress Note: 01/24/19 06:53 ct abd/pelvis-mild gastritis vs no distension of stomach spoke with dr. flores. i reviewed pt hx, condition, labs, ekg and ct scan results. he agrees observation, cardiac drip and cardiology consult. Counseled pt/family regarding: lab results, diagnosis, rad results - Departure Departure Disposition: Observation Clinical Impression: Atrial fibrillation with RVR, Abdominal pain Condition: Fair Critical Care Time: Yes Critical Care Time(excluding separately billable procedures): 30-74 minutes Referrals: FAY FLORES MD [Primary Care Provider] -
[2019-01-24] MEDS ORDERED: Hydromorphone 1 mg/ml Ampule IV ONE (02:18)
[2019-01-24] MEDS ORDERED: Zofran 4 MG/2 ML VIAL IV ONE (02:18)
[2019-01-24] MEDS ORDERED: LOPRESSOR 5 MG/5 ML INJECTION IV ONE ×2 (02:22→02:54)
[2019-01-24] MEDS ORDERED: Sodium Chloride 0.9% 1000 ML 1,000 ML IV SCH ×3 (02:30→07:55)
[2019-01-24] MEDS ORDERED: Cardizem IV 50 MG/10 ML IV ONE ×3 (02:33→05:41)
[2019-01-24] MEDS ORDERED: Zofran 4 MG/2 ML VIAL ONE (02:54)
[2019-01-24] MEDS ORDERED: Sodium Chloride 0.9% 1000 ML 1,000 ML ONE ×2 (02:55→07:17)
[2019-01-24] MEDS ORDERED: Hydromorphone 1 mg/ml Ampule ONE (02:55)
[2019-01-24 03:06] LABS: BASOPHIL % 0.2 % (0.0-0.4); Basophil (Absolute #) 0.01 (0-0.4); Eosinophil % 0.4 % (0.00-5.0); Eosinophil (Absolute #) 0.02 (0-0.5); Granulocyte Absolute (ANC) 4.33 (1.4-6.9); Granulocytes % 80.1 % (36.0-66.0); Hematocrit 39.9 % (35-47); Lymphocyte (Absolute #) 0.63 (1.0-4.6); Lymphocytes % 11.7 % (24.0-44.0); Mean Cell Volume 80.1 fl (78-100); Mean Corpuscular Hemoglobin 26.1 pg (26-32); Mean Corpuscular Hgb Concent. 32.6 g/dl (32-36); Mean Platelet Volume 9.9 fl (6-9.5); Monocyte (Absolute #) 0.41 (0.0-1.3); Monocytes % 7.6 % (0.0-12.0); Platelet Count 211 K/mm3 (150-450); Red Blood Count 4.98 M/mm3 (4.1-5.4); Red Cell Distribution Width 16.5 % (11.5-14.0); White Blood Count 5.4 K/mm3 (4.0-10.5)
[2019-01-24 03:33] LABS: ALBUMIN 3.9 g/dL (3.5-5.0); ALKALINE PHOSPHATASE 99 U/L (38-126); AMYLASE 82 U/L (30-110); ANION GAP 16.5 MEQ/L (5-15); BLOOD UREA NITROGEN 31 mg/dL (7-17); CHLORIDE 102 mmol/L (98-107); Carbon Dioxide 23 mmol/L (22-30); Creatinine 1 0.79 mg/dL (0.52-1.04); Glucose 111 mg/dL (74-106); Potassium 3.2 mmol/L (3.5-5.1); SGOT/AST 33 U/L (14-36); SGPT/ALT 24 U/L (0-35); SODIUM 138 mmol/L (137-145); Total Protein 7.2 g/dL (6.3-8.2)
[2019-01-24] MEDS ORDERED: Pepcid 20 MG VIAL IV ONE ×2 (06:42→06:43)
[2019-01-24] MEDS ORDERED: CARDIZEM DRIP 100 MG/100 ML D5W 100 ML IV PRN ×2 (06:57→07:55)
[2019-01-24] MEDS ORDERED: POTASSIUM CHLORIDE 20 mEq IN WATER 100ML 20 MEQ/100 ML BAG IV ONE (07:04)
[2019-01-24] MEDS ORDERED: POTASSIUM CHLORIDE 20 mEq IN WATER 100ML 100 ML IV ONE (07:12)
[2019-01-24 07:26] LABS: Appearance SLIGHTLY CLOUDY (CLEAR); Bacteria MODERATE /HPF (NEGATIVE); Bilirubin NEGATIVE (NEGATIVE); Blood SMALL Ery/ul (0-5); Epithelial Cells RARE /HPF (FEW); Glucose NEGATIVE (NEGATIVE); Ketones SMALL (NEGATIVE); Leukocyte Esterase LARGE (NEGATIVE); Mucus SLIGHT /HPF (NEGATIVE); Nitrite NEGATIVE (NEGATIVE); Protein,Urine Dip 30 (Negative); Specific Gravity 1.023 (1.005-1.025); Urobilinogen NEGATIVE mg/dL (0-1); WBC 51-100 /HPF (0-5)
[2019-01-24] MEDS ORDERED: Zofran 4 MG/2 ML VIAL IV PRN (07:55)
--- NOTE | 2019-01-24 09:03 | PCM.HP ---
History of Present Illness - Chief Complaint Chief Complaint: afib with rvr History of Present Illness: is a 78 year old female who presented to the ER with complaints of abdominal pain, she has longstanding complaints of epigastric abdominal pain. Has had workup including EGD at [facility], states there was no way she could do a colon prep so cancelled it. Her pain is all across her upper abdomen from right to left and sharp, she is a very poor historian and frequently goes back and forth to previous hospitalizations and testing etc when asked about current symptoms. she reports her urine is dark, no dysuria or frequency, no fever, vomited x 1 yesterday. - Review of Systems Constitutional: No Fever, No Chills Respiratory: No Cough, No Short Of Breath Cardiac: No Chest Pain, No Edema, No Syncope Abdominal/Gastrointestinal: Abdominal Pain, No Nausea, No Vomiting, No Diarrhea , No Constipation Genitourinary Symptoms: No Symptoms Skin: No Rash All Other Systems: Reviewed and Negative Medications & Allergies Home Medications: Home Medication List Hydrocodone/APAP 5/325 [[place] 5/325 mg] 1 each PO BID PRN PRN 11/27/12 [ History Confirmed 01/24/19] Furosemide 40 mg [Lasix 40 MG] 40 mg PO DAILY 12/06/12 [History Confirmed 01/24/19] Metoprolol Tartrate 25 mg [Lopressor 25MG Tab] 100 mg PO DAILY 03/19/13 [ History Confirmed 01/24/19] Budesonide/Formoterol Fumarate [Symbicort 160-4.5 Mcg Inhaler] 6 gm IH DAILY PRN 08/29/17 [History Confirmed 01/24/19] Lorazepam 0.5 mg [Ativan 0.5 MG] 0.5 mg PO DAILY PRN PRN 01/24/19 [ History Confirmed 01/24/19] Omeprazole 20 mg PO DAILY 01/24/19 [History Confirmed 01/24/19] Rivaroxaban [Xarelto] 20 mg PO DAILY 01/24/19 [History Confirmed 01/24/19] Sucralfate [Carafate] 10 ml PO ACHS 01/24/19 [History Confirmed 01/24/19] Allergies/Adverse Reactions: Allergies Allergy/AdvReac Type Severity Reaction Status Date / Time ceftriaxone sodium Allergy Unknown Verified 01/11/19 19:07 [From Rocephin] levofloxacin [From Levaquin] Allergy Unknown Verified 01/11/19 19:07 - Past Medical History Past Medical History: Yes Neurological History: No Pertinent History ENT History: No Pertinent History Cardiac History: Arrhythmia Respiratory History: CHF, COPD Endocrine Medical History: No Pertinent History Musculoskelatal History: No Pertinent History GI Medical History: No Pertinent History History: No Pertinent History Pyscho-Social History: No Pertinent History Reproductive Disorders: Cervical Cancer Comment: SHINGLES, AFIB DX IN NOVEMBER - Past Surgical History Past Surgical History: Yes Neuro Surgical History: No Pertinent History Cardiac History: Cardiac Catheterization Respiratory Surgery: No Pertinent History GI Surgical History: No Pertinent History Genitourinary Surgical Hx: No Pertinent History Musculskeletal Surgical Hx: No Pertinent History Female Surgical History: Hysterectomy, Tubal Ligation - Social History Smoking Status: Current every day smoker How long have you smoked: age 16 Exposure to second hand smoke: Yes Alcohol: None Drug Use: none - Physical Exam Vital Signs: Vital Signs - 24 hr Pulse Resp BP Pulse Ox 01/24/19 06:56 98 01/24/19 06:30 122 H 16 86/47 97 01/24/19 06:08 138 H 16 89/64 96 01/24/19 05:40 130 H 20 107/64 98 01/24/19 04:50 122 H 20 124/88 95 01/24/19 04:09 78/49 01/24/19 03:40 118 H 18 121/87 97 01/24/19 02:50 120 H 16 107/55 98 01/24/19 02:24 140 H 18 121/74 97 01/24/19 01:41 134 H 18 143/94 98 Oxygen-Last 24 hours O2 Percentage 2 Liters = 28% O2 Percentage 2 Liters = 28% O2 Percentage 2 Liters = 28% O2 Percentage 2 Liters = 28% O2 Percentage 2 Liters = 28% O2 Percentage 2 Liters = 28% General Appearance: no apparent distress, alert Neurologic Exam: alert, oriented x 3, cooperative, normal mood/affect, nml cerebellar function, nml station & gait, sensation nml, No motor deficits Respiratory Exam: normal breath sounds, lungs clear, No respiratory distress Cardiovascular Exam: tachycardia, irregular Gastrointestinal/Abdomen Exam: soft, tenderness (diffuse in epigastrium), No guarding, No rebound Extremity Exam: normal inspection, normal range of motion, pelvis stable Skin Exam: normal color, warm, dry, No rash Results - Labs Lab/Micro Results: Lab Results-Last 24 Hours 01/24/19 01/24/19 01/24/19 Range/Units 02:18 02:18 02:19 WBC 5.4 (4.0-10.5) K/mm3 RBC 4.98 (4.1-5.4) M/mm3 Hgb 13.0 (12.0-16.0) gm/dl Hct 39.9 (35-47) % MCV 80.1 (78-100) fl MCH 26.1 (26-32) pg MCHC 32.6 (32-36) g/dl RDW 16.5 H (11.5-14.0) % Plt Count 211 (150-450) K/mm3 MPV 9.9 H (6-9.5) fl Gran % 80.1 H (36.0-66.0) % Eos # (Auto) 0.02 (0-0.5) Absolute Lymphs (auto) 0.63 L (1.0-4.6) Absolute Monos (auto) 0.41 (0.0-1.3) Lymphocytes % 11.7 L (24.0-44.0) % Monocytes % 7.6 (0.0-12.0) % Eosinophils % 0.4 (0.00-5.0) % Basophils % 0.2 (0.0-0.4) % Absolute Granulocytes 4.33 (1.4-6.9) Basophils # 0.01 (0-0.4) Sodium 138 (137-145) mmol/L Potassium 3.2 L (3.5-5.1) mmol/L Chloride 102 (98-107) mmol/L Carbon Dioxide 23 (22-30) mmol/L Anion Gap 16.5 H (5-15) MEQ/L BUN 31 H (7-17) mg/dL Creatinine 0.79 (0.52-1.04) mg/dL Estimated GFR > 60.0 ML/MIN Glucose 111 H (74-106) mg/dL Lactic Acid (0.4-2.0) Calcium 10.0 (8.4-10.2) mg/dL Total Bilirubin 0.60 (0.2-1.3) mg/dL AST 33 (14-36) U/L ALT 24 (0-35) U/L Alkaline Phosphatase 99 (38-126) U/L Troponin I (0.000-0.034) ng/mL Serum Total Protein 7.2 (6.3-8.2) g/dL Albumin 3.9 (3.5-5.0) g/dL Amylase 82 (30-110) U/L Lipase 152 (23-300) U/L Urine Color YELLOW (YELLOW) Urine Appearance SLIGHTLY CLOUDY (CLEAR) Urine pH 5.0 (5-6) Ur Specific [place] 1.023 (1.005-1.025) Urine Protein 30 (Negative) Urine Ketones SMALL (NEGATIVE) Urine Blood SMALL (0-5) Braulio/ul Urine Nitrite NEGATIVE (NEGATIVE) Urine Bilirubin NEGATIVE (NEGATIVE) Urine Urobilinogen NEGATIVE (0-1) mg/dL Ur Leukocyte Esterase LARGE (NEGATIVE) Urine WBC (Auto) 51-100 (0-5) /HPF Urine RBC (Auto) 11-15 (0-2) /HPF U Epithel Cells (Auto) RARE (FEW) /HPF Urine Bacteria (Auto) MODERATE (NEGATIVE) /HPF Urine Mucus (Auto) SLIGHT (NEGATIVE) /HPF Urine Culture Reflexed YES (NO) Urine Glucose NEGATIVE (NEGATIVE) mg/dL 01/24/19 01/24/19 01/24/19 Range/Units 02:58 03:43 05:38 WBC (4.0-10.5) K/mm3 RBC (4.1-5.4) M/mm3 Hgb (12.0-16.0) gm/dl Hct (35-47) % MCV (78-100) fl MCH (26-32) pg MCHC (32-36) g/dl RDW (11.5-14.0) % Plt Count (150-450) K/mm3 MPV (6-9.5) fl Gran % (36.0-66.0) % Eos # (Auto) (0-0.5) Absolute Lymphs (auto) (1.0-4.6) Absolute Monos (auto) (0.0-1.3) Lymphocytes % (24.0-44.0) % Monocytes % (0.0-12.0) % Eosinophils % (0.00-5.0) % Basophils % (0.0-0.4) % Absolute Granulocytes (1.4-6.9) Basophils # (0-0.4) Sodium (137-145) mmol/L Potassium (3.5-5.1) mmol/L Chloride (98-107) mmol/L Carbon Dioxide (22-30) mmol/L Anion Gap (5-15) MEQ/L BUN (7-17) mg/dL Creatinine (0.52-1.04) mg/dL Estimated GFR ML/MIN Glucose (74-106) mg/dL Lactic Acid 1.5 (0.4-2.0) Calcium (8.4-10.2) mg/dL Total Bilirubin (0.2-1.3) mg/dL AST (14-36) U/L ALT (0-35) U/L Alkaline Phosphatase (38-126) U/L Troponin I 0.020 0.023 (0.000-0.034) ng/mL Serum Total Protein (6.3-8.2) g/dL Albumin (3.5-5.0) g/dL Amylase (30-110) U/L Lipase (23-300) U/L Urine Color (YELLOW) Urine Appearance (CLEAR) Urine pH (5-6) Ur Specific [place] (1.005-1.025) Urine Protein (Negative) Urine Ketones (NEGATIVE) Urine Blood (0-5) Braulio/ul Urine Nitrite (NEGATIVE) Urine Bilirubin (NEGATIVE) Urine Urobilinogen (0-1) mg/dL Ur Leukocyte Esterase (NEGATIVE) Urine WBC (Auto) (0-5) /HPF Urine RBC (Auto) (0-2) /HPF U Epithel Cells (Auto) (FEW) /HPF Urine Bacteria (Auto) (NEGATIVE) /HPF Urine Mucus (Auto) (NEGATIVE) /HPF Urine Culture Reflexed (NO) Urine Glucose (NEGATIVE) mg/dL - Radiology Impressions Radiology Exams & Impressions: Radiology Procedures Category Date Time Status ABDOMEN AND PELVIS W/0 CONTRAS [CT] Stat Exams 01/24/19 02:19 Taken Assessment/Plan (1) Atrial fibrillation with RVR Current Visit: Yes Status: Acute Assessment & Plan: heart rate remains 120 range on cardizem at 10mg/hr, on lopressor at home, was hypotensive in ER with IV lopressor. will consult with Dr Cross regarding recommendations. tsh ordered. she is anticoagulated on xarelto Code(s): I48.91 - UNSPECIFIED ATRIAL FIBRILLATION (2) UTI (urinary tract infection) Current Visit: Yes Status: Acute Assessment & Plan: on bactrim, culture and sensitivity pending. Code(s): N39.0 - URINARY TRACT INFECTION, SITE NOT SPECIFIED (3) Abdominal pain Current Visit: Yes Status: Acute Assessment & Plan: ct shows thickened gastric wall vs underdistension, recent EGD at [facility] nothing acute. will treat with PPI and carafate for presumed gastritis Code(s): R10.9 - UNSPECIFIED ABDOMINAL PAIN
--- NOTE | 2019-01-24 09:18 | XRAY ---
Indication: Upper abdomen pain. Nausea and vomiting. Multiple contiguous axial images obtained through the abdomen and pelvis without contrast as ordered. Comparison: November 12, 2018. Lung bases again demonstrates bibasilar fibrosis/scarring. No infiltrate or effusion. Heart remains enlarged with clearing of previous pericardial effusion. New cardiac pacer leads. Noncontrasted stomach and bowel loops remain nonobstructed. Normal appendix. Minimal scattered colonic diverticulosis. No free fluid/air. Stable hysterectomy and cholecystectomy. Remaining liver, pancreas, spleen, adrenal glands, kidneys, ureters, and bladder appear unremarkable for noncontrast exam. Stable mild scattered aortoiliac calcifications without AAA. Osseous structures again demonstrates osteopenia, mild degenerative changes throughout the spine, T11 vertebral hemangioma, and T12 superior endplate Schmorl node. Impression: 1. Minimal colonic diverticulosis without diverticulitis. 2. Again cardiomegaly with clearing of pericardial effusion and new pacer leads. 3. No new or acute intra-abdominal/pelvic abnormalities on this noncontrast exam. Comment: Preliminary interpretation was made by [facility]. No critical discrepancy. CT DI 10.47
[2019-01-24] MEDS ORDERED: Protonix 40MG Tablet PO SCH (10:00)
[2019-01-24] MEDS: BACTRIM DS TABLET PO SCH ×2 (10:10→22:49)
[2019-01-24] MEDS: TYLENOL 325 MG PO PRN (10:10)
[2019-01-24] MEDS ORDERED: MEDICATION INTERVENTION PO SCH (10:45)
[2019-01-24] MEDS ORDERED: MEDICATION INTERVENTION MC SCH (10:45)
[2019-01-24] MEDS: Carafate 1 GM PO SCH ×3 (11:15→22:49)
[2019-01-24] MEDS ORDERED: Lanoxin 0.5 MG/2 ML INJECTION IV ONE (11:15)
[2019-01-24] MEDS: FEOSOL 325 MG PO SCH (11:18)
[2019-01-24] MEDS ORDERED: Lopressor 50 MG PO ONE (11:30)
[2019-01-24] MEDS: Ativan 0.5 MG PO PRN (15:20)
[2019-01-24] MEDS: Norco 10/325 MG Tablet PO PRN ×2 (15:20→23:23)
[2019-01-24] MEDS: XARELTO 10 MG TABLET PO SCH (17:26)
[2019-01-24] MEDS: Sodium Chloride 0.9% W/ 20 mEq KCl/LITER 1,000 ML IV SCH (17:27)
[2019-01-24] MEDS: Inderal 20 MG PO SCH (17:32)
[2019-01-24] MEDS ORDERED: Lopressor 50 MG PO SCH (22:00)
[2019-01-24] MEDS ORDERED: NON-FORMULARY ITEM (Budesonide/Formoterol Fumarate [Symbicort 160-4.5 Mcg Inhaler] 2 PUFF) IH SCH (22:00)
[2019-01-24] MEDS ORDERED: METHIMAZOLE PO SCH (22:00)
[2019-01-24] MEDS: Protonix 40MG Tablet PO SCH (22:49)
[2019-01-25 05:26] LABS: BASOPHIL % 0.2 % (0.0-0.4); Basophil (Absolute #) 0.01 (0-0.4); Eosinophil % 1.8 % (0.00-5.0); Granulocyte Absolute (ANC) 3.21 (1.4-6.9); Granulocytes % 58.9 % (36.0-66.0); Hemoglobin 11.7 gm/dl (12.0-16.0); Lymphocyte (Absolute #) 1.35 (1.0-4.6); Lymphocytes % 24.8 % (24.0-44.0); Mean Cell Volume 81.4 fl (78-100); Mean Corpuscular Hgb Concent. 32.5 g/dl (32-36); Mean Platelet Volume 10.4 fl (6-9.5); Monocyte (Absolute #) 0.78 (0.0-1.3); Monocytes % 14.3 % (0.0-12.0); Platelet Count 176 K/mm3 (150-450); Red Blood Count 4.42 M/mm3 (4.1-5.4); Red Cell Distribution Width 16.4 % (11.5-14.0); White Blood Count 5.5 K/mm3 (4.0-10.5)
[2019-01-25 05:29] LABS: Mean Corpuscular Hemoglobin 26.4 pg (26-32)
[2019-01-25 05:35] LABS: ALBUMIN 3.2 g/dL (3.5-5.0); ALKALINE PHOSPHATASE 79 U/L (38-126); ANION GAP 10.1 MEQ/L (5-15); BLOOD UREA NITROGEN 22 mg/dL (7-17); CHLORIDE 113 mmol/L (98-107); Calcium 9.2 mg/dL (8.4-10.2); Carbon Dioxide 20 mmol/L (22-30); Creatinine 1 0.59 mg/dL (0.52-1.04); Glucose 113 mg/dL (74-106); Potassium 3.6 mmol/L (3.5-5.1); SGOT/AST 27 U/L (14-36); SGPT/ALT 19 U/L (0-35); SODIUM 139 mmol/L (137-145)
[2019-01-25] MEDS: Inderal 20 MG PO SCH ×3 (06:04→21:17)
[2019-01-25] MEDS: Carafate 1 GM PO SCH ×4 (08:05→21:16)
--- NOTE | 2019-01-25 08:10 | PCM.NOTE ---
Date and Time: 01/25/19805 Subjective Assessment: patient feeling better this morning, still has some elevation of heart rate with activity but abdominal pain is improved. Objective Exam General Appearance: no apparent distress, alert Respiratory Exam: normal breath sounds, lungs clear, No respiratory distress Cardiovascular Exam: tachycardia, irregular Gastrointestinal/Abdomen Exam: soft, No tenderness, No mass Extremity Exam: normal inspection, normal range of motion OBJECTIVE DATA Vital Signs: Vital Signs - 24 hr Temp Pulse Resp BP Pulse Ox 01/25/19 04:00 98.4 F 122 H 17 112/66 98 01/25/19 00:01 100 H 01/25/19 00:00 97.4 F 100 H 20 100/59 100 01/24/19 20:26 98.5 F 100 H 21 84/49 94 L 01/24/19 20:00 100 H 01/24/19 19:28 93 L 01/24/19 18:13 98/63 01/24/19 17:00 105 H 23 97 01/24/19 16:00 98.1 F 92 H 20 108/60 97 01/24/19 15:00 93 H 18 95/48 99 01/24/19 14:00 110 H 18 104/57 95 01/24/19 13:00 106 H 18 97/56 95 01/24/19 11:34 125 H 01/24/19 11:30 98.5 F 119 H 15 104/54 98 01/24/19 10:55 132 H 25 H 115/77 97 01/24/19 10:00 105 H 18 105/62 99 01/24/19 09:59 121 H 18 118/103 99 01/24/19 09:45 98 01/24/19 08:45 116 H 23 115/97 98 01/24/19 08:30 125 H 119/85 Oxygen-Last 24 hours O2 Percentage 2 Liters = 28% O2 Percentage 2 Liters = 28% O2 Percentage 2 Liters = 28% O2 Percentage 2 Liters = 28% O2 Percentage 2 Liters = 28% O2 Percentage 2 Liters = 28% O2 Percentage 2 Liters = 28% O2 Percentage 2 Liters = 28% O2 Percentage 2 Liters = 28% O2 Percentage 2 Liters = 28% Pain Assessment - Last Documented Pain Intensity 1 Pain Scale Used FLACC Intake and Output: Intake & Output 01/22/19 01/23/19 01/24/19 07/12/19 11:59 11:59 11:59 11:59 Intake Total 2030 Balance 2030 Weight 52.2 kg 54.3 kg Lab Results: Lab Results-Last 24 Hours 01/24/19 01/24/19 01/24/19 Range/Units 05:38 08:40 11:41 WBC (4.0-10.5) K/mm3 RBC (4.1-5.4) M/mm3 Hgb (12.0-16.0) gm/dl Hct (35-47) % MCV (78-100) fl MCH (26-32) pg MCHC (32-36) g/dl RDW (11.5-14.0) % Plt Count (150-450) K/mm3 MPV (6-9.5) fl Gran % (36.0-66.0) % Eos # (Auto) (0-0.5) Absolute Lymphs (auto) (1.0-4.6) Absolute Monos (auto) (0.0-1.3) Lymphocytes % (24.0-44.0) % Monocytes % (0.0-12.0) % Eosinophils % (0.00-5.0) % Basophils % (0.0-0.4) % Absolute Granulocytes (1.4-6.9) Basophils # (0-0.4) Sodium (137-145) mmol/L Potassium (3.5-5.1) mmol/L Chloride (98-107) mmol/L Carbon Dioxide (22-30) mmol/L Anion Gap (5-15) MEQ/L BUN (7-17) mg/dL Creatinine (0.52-1.04) mg/dL Estimated GFR ML/MIN Glucose (74-106) mg/dL Calcium (8.4-10.2) mg/dL Total Bilirubin (0.2-1.3) mg/dL AST (14-36) U/L ALT (0-35) U/L Alkaline Phosphatase (38-126) U/L Troponin I 0.022 0.021 (0.000-0.034) ng/mL Serum Total Protein (6.3-8.2) g/dL Albumin (3.5-5.0) g/dL Free T4 (0.76-1.46) ng/dL Free T3 pg/mL (2.77-5.27) pg/mL TSH 3rd Generation < 0.015 L (0.47-4.68) mIU/L 01/24/19 01/24/19 01/24/19 Range/Units 11:41 14:24 Unknown WBC (4.0-10.5) K/mm3 RBC (4.1-5.4) M/mm3 Hgb (12.0-16.0) gm/dl Hct (35-47) % MCV (78-100) fl MCH (26-32) pg MCHC (32-36) g/dl RDW (11.5-14.0) % Plt Count (150-450) K/mm3 MPV (6-9.5) fl Gran % (36.0-66.0) % Eos # (Auto) (0-0.5) Absolute Lymphs (auto) (1.0-4.6) Absolute Monos (auto) (0.0-1.3) Lymphocytes % (24.0-44.0) % Monocytes % (0.0-12.0) % Eosinophils % (0.00-5.0) % Basophils % (0.0-0.4) % Absolute Granulocytes (1.4-6.9) Basophils # (0-0.4) Sodium (137-145) mmol/L Potassium 3.4 L (3.5-5.1) mmol/L Chloride (98-107) mmol/L Carbon Dioxide (22-30) mmol/L Anion Gap (5-15) MEQ/L BUN (7-17) mg/dL Creatinine (0.52-1.04) mg/dL Estimated GFR ML/MIN Glucose (74-106) mg/dL Calcium (8.4-10.2) mg/dL Total Bilirubin (0.2-1.3) mg/dL AST (14-36) U/L ALT (0-35) U/L Alkaline Phosphatase (38-126) U/L Troponin I 0.016 (0.000-0.034) ng/mL Serum Total Protein (6.3-8.2) g/dL Albumin (3.5-5.0) g/dL Free T4 (0.76-1.46) ng/dL Free T3 pg/mL > 22.8 H (2.77-5.27) pg/mL TSH 3rd Generation (0.47-4.68) mIU/L 01/24/19 01/25/19 01/25/19 Range/Units Unknown 05:21 05:21 WBC 5.5 (4.0-10.5) K/mm3 RBC 4.42 (4.1-5.4) M/mm3 Hgb 11.7 L (12.0-16.0) gm/dl Hct 36.0 (35-47) % MCV 81.4 (78-100) fl MCH 26.4 (26-32) pg MCHC 32.5 (32-36) g/dl RDW 16.4 H (11.5-14.0) % Plt Count 176 (150-450) K/mm3 MPV 10.4 H (6-9.5) fl Gran % 58.9 (36.0-66.0) % Eos # (Auto) 0.10 (0-0.5) Absolute Lymphs (auto) 1.35 (1.0-4.6) Absolute Monos (auto) 0.78 (0.0-1.3) Lymphocytes % 24.8 (24.0-44.0) % Monocytes % 14.3 H (0.0-12.0) % Eosinophils % 1.8 (0.00-5.0) % Basophils % 0.2 (0.0-0.4) % Absolute Granulocytes 3.21 (1.4-6.9) Basophils # 0.01 (0-0.4) Sodium 139 (137-145) mmol/L Potassium 3.6 (3.5-5.1) mmol/L Chloride 113 H (98-107) mmol/L Carbon Dioxide 20 L (22-30) mmol/L Anion Gap 10.1 (5-15) MEQ/L BUN 22 H (7-17) mg/dL Creatinine 0.59 (0.52-1.04) mg/dL Estimated GFR > 60.0 ML/MIN Glucose 113 H (74-106) mg/dL Calcium 9.2 (8.4-10.2) mg/dL Total Bilirubin 0.40 (0.2-1.3) mg/dL AST 27 (14-36) U/L ALT 19 (0-35) U/L Alkaline Phosphatase 79 (38-126) U/L Troponin I (0.000-0.034) ng/mL Serum Total Protein 6.0 L (6.3-8.2) g/dL Albumin 3.2 L (3.5-5.0) g/dL Free T4 6.70 H (0.76-1.46) ng/dL Free T3 pg/mL (2.77-5.27) pg/mL TSH 3rd Generation (0.47-4.68) mIU/L Radiology Exams: Radiology Procedures Category Date Time Status ABDOMEN AND PELVIS W/0 CONTRAS [CT] Stat Exams 01/24/19 02:19 Completed Assessment/Plan (1) Atrial fibrillation with RVR Current Visit: Yes Status: Acute Assessment & Plan: appreciate Dr Cross's input, changed to inderal due to hyperthyroidism. rate is still high at times but will increase her methimazole today Code(s): I48.91 - UNSPECIFIED ATRIAL FIBRILLATION (2) Hyperthyroidism Current Visit: Yes Status: Acute Assessment & Plan: patient admits to missing doses occasionally but sounds like she is generally compliant most day, stressed need to stay on med regularly. will increase methimazole from 2mg bid to 5mg bid Code(s): E05.90 - THYROTOXICOSIS, UNSP WITHOUT THYROTOXIC CRISIS OR STORM (3) UTI (urinary tract infection) Current Visit: Yes Status: Acute Assessment & Plan: on bactrim, so far no growth. if negative at 48 hours can d/c Code(s): N39.0 - URINARY TRACT INFECTION, SITE NOT SPECIFIED
--- NOTE | 2019-01-25 09:26 | CONS ---
CONSULT DATE: 01/24/2019 BRIEF HISTORY: This is a 78 year-old female who was admitted through the emergency room presenting with abdominal pain. She recently had a work up at [facility] and apparently the work up was essentially unremarkable. She was noted to be in atrial fibrillation with rapid ventricular response and was placed on Cardizem drip. She has long standing history of atrial fibrillation which is permanent. She is currently anticoagulated with Xarelto. She has a history of Grave's disease. She has not been compliant with her medications. She has never had any myocardial infarction. CARDIAC RISK FACTORS: Negative for diabetes. Negative for hypertension. No known hyperlipidemia. She still smokes. MEDICATIONS: [place], Furosemide, metoprolol, Symbicort, lorazepam, omeprazole, methimazole, Carafate. 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 RESPIRATORY: She is chronically short of breath. She has chronic obstructive pulmonary disease. GI: She has gastritis. : Negative for dysuria or hematuria. PERIPHERAL VASCULAR: No history of DVT or claudication. 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 She used to work in a [employer]. PHYSICAL EXAMINATION: Her blood pressure is 96/70 with a heart rate of 110 in atrial fibrillation, respirations about 18. GENERAL: The patient is an elderly female who looks frail and is not in any form of distress, conversant. HEENT: Unremarkable. NECK: External jugulars are prominent. CHEST: There is rhonchi in both lung goldsmith. CARDIAC: Heart tones are variable. The rhythm is atrial fibrillation. ABDOMEN: Soft with normal bowel sounds. EXTREMITIES: No significant edema. Decreased distal pulses. LAB DATA AND DIAGNOSTIC TESTS: Initial EKG on 01/24/2019 showed atrial fibrillation with a heart rate of 133. IMPRESSION: In essence the patient presented with: 1) Atrial fibrillation. We will continue with beta blockers, will wean off of the Cardizem. She is currently hyperthyroid which will be addressed. We will switch her to propranolol which would be the beta lisa of choice in the presence of hyperthyroid state. We will wean her off the Cardizem. 2) Chronic obstructive pulmonary disease. 3) Noncompliance.
[2019-01-25] MEDS: BACTRIM DS TABLET PO SCH ×2 (09:35→21:17)
[2019-01-25] MEDS: FEOSOL 325 MG PO SCH (09:36)
[2019-01-25] MEDS: PATIENT OWN MEDICATION PO SCH ×2 (09:36→21:19)
[2019-01-25] MEDS: Protonix 40MG Tablet PO SCH ×2 (09:36→21:17)
[2019-01-25] MEDS: Norco 10/325 MG Tablet PO PRN ×3 (10:22→21:17)
[2019-01-25] MEDS: PATIENT OWN MEDICATION IH SCH ×2 (12:08→19:07)
[2019-01-25] MEDS: Sodium Chloride 0.9% W/ 20 mEq KCl/LITER 1,000 ML IV SCH (18:43)
[2019-01-25] MEDS: XARELTO 10 MG TABLET PO SCH (19:09)
[2019-01-26] MEDS: Norco 10/325 MG Tablet PO PRN ×4 (01:52→21:29)
[2019-01-26 05:49] LABS: BASOPHIL % 0.5 % (0.0-0.4); Basophil (Absolute #) 0.02 (0-0.4); Eosinophil % 1.7 % (0.00-5.0); Eosinophil (Absolute #) 0.07 (0-0.5); Granulocyte Absolute (ANC) 2.28 (1.4-6.9); Granulocytes % 54.5 % (36.0-66.0); Hemoglobin 11.1 gm/dl (12.0-16.0); Lymphocyte (Absolute #) 1.04 (1.0-4.6); Lymphocytes % 24.9 % (24.0-44.0); Mean Cell Volume 82.4 fl (78-100); Mean Corpuscular Hemoglobin 26.1 pg (26-32); Mean Corpuscular Hgb Concent. 31.7 g/dl (32-36); Mean Platelet Volume 10.6 fl (6-9.5); Monocyte (Absolute #) 0.77 (0.0-1.3); Monocytes % 18.4 % (0.0-12.0); Platelet Count 158 K/mm3 (150-450); Red Blood Count 4.25 M/mm3 (4.1-5.4); Red Cell Distribution Width 16.4 % (11.5-14.0); White Blood Count 4.2 K/mm3 (4.0-10.5)
[2019-01-26 06:19] LABS: ALBUMIN 3.2 g/dL (3.5-5.0); ALKALINE PHOSPHATASE 71 U/L (38-126); ANION GAP 8.6 MEQ/L (5-15); BLOOD UREA NITROGEN 20 mg/dL (7-17); CHLORIDE 114 mmol/L (98-107); Calcium 9.2 mg/dL (8.4-10.2); Carbon Dioxide 21 mmol/L (22-30); Glucose 104 mg/dL (74-106); Potassium 4.7 mmol/L (3.5-5.1); SGOT/AST 27 U/L (14-36); SGPT/ALT 21 U/L (0-35); SODIUM 139 mmol/L (137-145)
[2019-01-26] MEDS: Inderal 20 MG PO SCH ×3 (06:24→21:30)
[2019-01-26] MEDS: Carafate 1 GM PO SCH ×4 (06:24→21:29)
[2019-01-26] MEDS: Sodium Chloride 0.9% 10 ML FLUSH Syringe IV SCH ×4 (06:34→22:00)
[2019-01-26] MEDS: Ativan 0.5 MG PO PRN ×2 (07:01→22:16)
[2019-01-26] MEDS: PATIENT OWN MEDICATION IH SCH ×2 (08:09→21:40)
[2019-01-26] MEDS: BACTRIM DS TABLET PO SCH ×2 (09:07→21:30)
[2019-01-26] MEDS: Protonix 40MG Tablet PO SCH ×2 (09:07→21:30)
[2019-01-26] MEDS: PATIENT OWN MEDICATION PO SCH ×2 (09:08→21:31)
[2019-01-26] MEDS: FEOSOL 325 MG PO SCH (09:08)
--- NOTE | 2019-01-26 14:02 | PCM.NOTE ---
Date and Time: 01/26/19 5529 Subjective Assessment: Patient reports some post herpatic neuralgia pain and also some right sided neck pain all that started before her hospitalization. She also reports she has a pacemaker. Nurses notes say she is intermittently confused at times. - Review of Systems Constitutional: No Symptoms Eyes: No Symptoms Ears, Nose, & Throat: No Symptoms Respiratory: No Symptoms Cardiac: No Symptoms Abdominal/Gastrointestinal: No Symptoms Genitourinary Symptoms: No Symptoms Musculoskeletal: No Symptoms, Other Skin: Other (pain from hx of shingles) Objective Exam General Appearance: no apparent distress Neurologic Exam: alert, oriented x 3, other (knows who president of [place] is) Skin Exam: normal color, warm, dry, No rash Respiratory Exam: normal breath sounds, lungs clear, No crackles/rales, No rhonchi, No wheezing Cardiovascular Exam: tachycardia, other, No murmur, No friction rub, No gallop ( HR 110), No irregular Gastrointestinal/Abdomen Exam: soft, normal bowel sounds, No tenderness, No distention, No mass OBJECTIVE DATA Vital Signs: Vital Signs - 24 hr Temp Pulse Resp BP BP Pulse Ox 01/26/19 12:00 98.2 F 106 H 20 128/78 96 01/26/19 08:17 96 01/26/19 08:09 108 H 20 95 01/26/19 08:00 98.6 F 106 H 16 143/64 95 01/26/19 04:00 98.5 F 108 H 23 108/68 95 01/26/19 02:07 97.6 F 112 H 24 119/93 97 01/25/19 22:00 111 H 16 105/73 98 01/25/19 21:19 98.1 F 115 H 18 110/55 98 01/25/19 20:00 98.4 F 97 H 118/74 01/25/19 19:08 97 H 18 95 01/25/19 16:00 119 H 01/25/19 15:18 98.4 F 119 H 18 118/74 93 L Oxygen-Last 24 hours O2 Percentage 2 Liters = 28% O2 Percentage 2 Liters = 28% Pain Assessment - Last Documented Pain Intensity 9 Pain Scale Used 0-10 Pain Scale Intake and Output: Intake & Output 07/11/19 07/12/19 07/13/19 07/14/19 06:59 06:59 06:59 06:59 Intake Total 2030 1776 Balance 2030 1776 Weight 50.802 kg 54.3 kg 55.5 kg Lab Results: Lab Results-Last 24 Hours 01/26/19 01/26/19 Range/Units 05:12 05:12 WBC 4.2 (4.0-10.5) K/mm3 RBC 4.25 (4.1-5.4) M/mm3 Hgb 11.1 L (12.0-16.0) gm/dl Hct 35.0 (35-47) % MCV 82.4 (78-100) fl MCH 26.1 (26-32) pg MCHC 31.7 L (32-36) g/dl RDW 16.4 H (11.5-14.0) % Plt Count 158 (150-450) K/mm3 MPV 10.6 H (6-9.5) fl Gran % 54.5 (36.0-66.0) % Eos # (Auto) 0.07 (0-0.5) Absolute Lymphs (auto) 1.04 (1.0-4.6) Absolute Monos (auto) 0.77 (0.0-1.3) Lymphocytes % 24.9 (24.0-44.0) % Monocytes % 18.4 H (0.0-12.0) % Eosinophils % 1.7 (0.00-5.0) % Basophils % 0.5 (0.0-0.4) % Absolute Granulocytes 2.28 (1.4-6.9) Basophils # 0.02 (0-0.4) Sodium 139 (137-145) mmol/L Potassium 4.7 D (3.5-5.1) mmol/L Chloride 114 H (98-107) mmol/L Carbon Dioxide 21 L (22-30) mmol/L Anion Gap 8.6 (5-15) MEQ/L BUN 20 H (7-17) mg/dL Creatinine 0.60 (0.52-1.04) mg/dL Estimated GFR > 60.0 ML/MIN Glucose 104 (74-106) mg/dL Calcium 9.2 (8.4-10.2) mg/dL Total Bilirubin 0.30 (0.2-1.3) mg/dL AST 27 (14-36) U/L ALT 21 (0-35) U/L Alkaline Phosphatase 71 (38-126) U/L Serum Total Protein 6.0 L (6.3-8.2) g/dL Albumin 3.2 L (3.5-5.0) g/dL Assessment/Plan (1) Atrial fibrillation with RVR Current Visit: Yes Status: Acute Assessment & Plan: Increase propranolol from 40 mg q8 hours to 60 mg q 8 hous. Continue xarelto. Will transfer to med surg on tele. Code(s): I48.91 - UNSPECIFIED ATRIAL FIBRILLATION (2) Hyperthyroidism Current Visit: Yes Status: Acute Assessment & Plan: Continue current medication. Code(s): E05.90 - THYROTOXICOSIS, UNSP WITHOUT THYROTOXIC CRISIS OR STORM (3) UTI (urinary tract infection) Current Visit: Yes Status: Acute Assessment & Plan: Continue current antibiotic. Code(s): N39.0 - URINARY TRACT INFECTION, SITE NOT SPECIFIED
[2019-01-26] MEDS: Sodium Chloride 0.9% W/ 20 mEq KCl/LITER 1,000 ML IV SCH (15:19)
[2019-01-26] MEDS: XARELTO 10 MG TABLET PO SCH (18:26)
[2019-01-27] MEDS: Ativan 0.5 MG PO PRN ×4 (02:32→18:34)
[2019-01-27] MEDS: Sodium Chloride 0.9% 10 ML FLUSH Syringe IV SCH ×3 (04:57→21:51)
[2019-01-27] MEDS: Inderal 20 MG PO SCH ×3 (05:26→21:51)
[2019-01-27] MEDS: Carafate 1 GM PO SCH ×4 (05:50→21:50)
[2019-01-27] MEDS: Norco 10/325 MG Tablet PO PRN ×2 (09:01→21:50)
[2019-01-27] MEDS: FEOSOL 325 MG PO SCH (09:03)
[2019-01-27] MEDS: PATIENT OWN MEDICATION PO SCH ×2 (09:03→21:51)
[2019-01-27] MEDS: BACTRIM DS TABLET PO SCH ×2 (09:03→21:51)
[2019-01-27] MEDS: Protonix 40MG Tablet PO SCH ×2 (09:03→21:51)
[2019-01-27] MEDS: PATIENT OWN MEDICATION IH SCH ×2 (09:51→22:51)
[2019-01-27] MEDS: Lidoderm Patch 5% TOP SCH (11:50)
--- NOTE | 2019-01-27 13:32 | PCM.NOTE ---
Date and Time: 01/27/19 1326 Subjective Assessment: Patient reports abdominal pain and has been agitated. Also has complained of some right neck pain. She is on hydrocodone it appears chronically. - Review of Systems Constitutional: Other (Can't seem to get comfortable in bed) Respiratory: No Symptoms Cardiac: No Chest Pain Abdominal/Gastrointestinal: Abdominal Pain Genitourinary Symptoms: No Symptoms Musculoskeletal: No Symptoms Skin: Other (pain on skin from postherpatic neuralgia) Objective Exam General Appearance: mild distress, other (Moving around in bed, has trouble describing pain. States neck pain comes and goes; no nuchal rigidity; able to raise right arm above 90 degrees but not [address] the way up) Neurologic Exam: alert, other (anxious) Skin Exam: normal color, warm, dry Respiratory Exam: normal breath sounds, lungs clear, No crackles/rales, No rhonchi, No wheezing Cardiovascular Exam: tachycardia, irregular, other, No murmur, No friction rub, No gallop Gastrointestinal/Abdomen Exam: soft, normal bowel sounds, tenderness, No distention, No mass, No guarding Extremity Exam: other (no c/c/e) OBJECTIVE DATA Vital Signs: Vital Signs - 24 hr Temp Pulse Resp BP BP Pulse Ox 01/27/19 09:51 112 H 20 97 01/27/19 08:00 98.3 F 110 H 18 128/80 99 01/27/19 03:36 115 H 16 110/55 94 L 01/27/19 00:00 105 H 18 110/55 94 L 01/26/19 21:41 113 H 17 94 L 01/26/19 20:00 130 H 15 01/26/19 16:00 98.2 F 106 H 20 128/78 110/55 96 Oxygen-Last 24 hours O2 Percentage 2 Liters = 28% O2 Percentage 2 Liters = 28% O2 Percentage 2 Liters = 28% Pain Assessment - Last Documented Pain Intensity 7 Pain Scale Used [facility] Intake and Output: Intake & Output 01/25/19 01/26/19 01/27/19 01/28/19 06:59 06:59 06:59 06:59 Intake Total 2030 1777 1571 Output Total 200 Balance 20307 1371 Weight 54.3 kg 55.5 kg 55.5 kg Multi-Disciplinary Progress Notes: Multi-Disciplinary Progress Notes 01/26/19 20:23 Respiratory Note by Rohan,Ham WENT TO PT RM TO DO HER SYMBICORT TX, PT WAS SLEEPING, NURSING ASKED ME NOT TO DISTURB AND THEY WILL CALL WHEN SHE IS AWAKE FOR HER TX. Initialized on 01/26/19 20:23 - END OF NOTE Assessment/Plan (1) Atrial fibrillation with RVR Current Visit: Yes Status: Acute Assessment & Plan: I have increased her propranolol again today to try to keep her HR <100; Continue anticoagulation; Dr. Cross has been following. Code(s): I48.91 - UNSPECIFIED ATRIAL FIBRILLATION (2) Hyperthyroidism Current Visit: Yes Status: Acute Assessment & Plan: Will start hydrocortisone 100 mg IV q 8 hours; increase methimazole to 20 mg tid ; start iodine orally. Continue propranolol. Symptoms are worrisome for thryoid storm given anxiety, continued tachycardia. May need to increase methimazole and/or propranolol again. She will need the methimazole dose decreased before discharge most likely when she is more stable. Patient reports rarely missing methimazole doses and her T3 was very high at TSH low. Code(s): E05.90 - THYROTOXICOSIS, UNSP WITHOUT THYROTOXIC CRISIS OR STORM (3) UTI (urinary tract infection) Current Visit: Yes Status: Acute Assessment & Plan: Continue antibiotic. Code(s): N39.0 - URINARY TRACT INFECTION, SITE NOT SPECIFIED
[2019-01-27] MEDS: Lugol's Solution PO SCH ×2 (13:49→21:51)
[2019-01-27] MEDS: solu-CORTEF 100MG IV SCH ×3 (13:51→21:50)
[2019-01-27] MEDS: XARELTO 10 MG TABLET PO SCH (16:57)
[2019-01-28] MEDS: Ativan 0.5 MG PO PRN ×4 (00:58→22:07)
[2019-01-28] MEDS: TYLENOL 325 MG PO PRN ×2 (02:04→22:07)
[2019-01-28] MEDS: Norco 10/325 MG Tablet PO PRN ×4 (03:43→23:57)
[2019-01-28] MEDS: Lugol's Solution PO SCH ×3 (03:51→22:07)
[2019-01-28] MEDS: Sodium Chloride 0.9% 10 ML FLUSH Syringe IV SCH ×3 (05:58→22:09)
[2019-01-28] MEDS: Inderal 20 MG PO SCH ×3 (05:58→22:08)
[2019-01-28] MEDS: solu-CORTEF 100MG IV SCH ×3 (05:58→22:09)
[2019-01-28] MEDS: Carafate 1 GM PO SCH ×5 (07:33→22:08)
[2019-01-28] MEDS: PATIENT OWN MEDICATION IH SCH ×2 (07:38→20:28)
--- NOTE | 2019-01-28 08:44 | PCM.NOTE ---
Date and Time: 01/28/19 0842 Subjective Assessment: patient is doing much better, tolerating po and is alert and able to answer questions appropriately Objective Exam General Appearance: no apparent distress, alert Respiratory Exam: normal breath sounds, lungs clear, No respiratory distress Cardiovascular Exam: regular rate/rhythm, normal heart sounds Gastrointestinal/Abdomen Exam: soft, No tenderness, No mass Extremity Exam: normal inspection, normal range of motion OBJECTIVE DATA Vital Signs: Vital Signs - 24 hr Temp Pulse Resp BP Pulse Ox 01/28/19 07:40 79 22 98 01/28/19 04:00 98.1 F 80 28 H 117/98 96 01/27/19 23:57 98.1 F 92 H 18 105/58 95 01/27/19 22:53 80 20 96 01/27/19 20:00 98.5 F 118 H 22 131/70 98 01/27/19 16:00 97.3 F 115 H 18 113/74 92 L 01/27/19 12:00 99.0 F 113 H 18 116/55 01/27/19 09:51 112 H 20 97 Oxygen-Last 24 hours O2 Percentage 3 Liters = 32% Pain Assessment - Last Documented Pain Intensity 6 Pain Scale Used 0-10 Pain Scale Intake and Output: Intake & Output 01/25/19 01/26/19 01/27/19 01/28/19 11:59 11:59 11:59 11:59 Intake Total 2030 1777 1571 720 Output Total 200 Balance 2030 1777 1371 720 Weight 54.3 kg 55.5 kg 55.5 kg Assessment/Plan (1) Atrial fibrillation with RVR Current Visit: Yes Status: Acute Assessment & Plan: rate controlled, doing much better, anticoagulated on xarelto. if rate remains controlled likely home tomorrow. patient agrees to home health referral Code(s): I48.91 - UNSPECIFIED ATRIAL FIBRILLATION (2) Hyperthyroidism Current Visit: Yes Status: Acute Code(s): E05.90 - THYROTOXICOSIS, UNSP WITHOUT THYROTOXIC CRISIS OR STORM (3) UTI (urinary tract infection) Current Visit: Yes Status: Acute Assessment & Plan: culture negative, d/c bactrim Code(s): N39.0 - URINARY TRACT INFECTION, SITE NOT SPECIFIED
[2019-01-28] MEDS: PATIENT OWN MEDICATION PO SCH ×2 (10:13→22:08)
[2019-01-28] MEDS: Protonix 40MG Tablet PO SCH ×2 (10:13→22:07)
[2019-01-28] MEDS: FEOSOL 325 MG PO SCH (10:13)
[2019-01-28] MEDS: Lidoderm Patch 5% TOP SCH (10:14)
[2019-01-28] MEDS: XARELTO 10 MG TABLET PO SCH (18:12)
[2019-01-29] MEDS: Ativan 0.5 MG PO PRN ×3 (02:00→20:05)
[2019-01-29 06:01] LABS: Hematocrit 31.7 % (35-47); Hemoglobin 10.5 gm/dl (12.0-16.0); Mean Cell Volume 80.3 fl (78-100); Mean Corpuscular Hgb Concent. 33.1 g/dl (32-36); Mean Platelet Volume 10.5 fl (6-9.5); Platelet Count 181 K/mm3 (150-450); Red Blood Count 3.95 M/mm3 (4.1-5.4); Red Cell Distribution Width 16.5 % (11.5-14.0)
[2019-01-29 06:12] LABS: Mean Corpuscular Hemoglobin 26.5 pg (26-32)
[2019-01-29 06:22] LABS: BLOOD UREA NITROGEN 21 mg/dL (7-17); CHLORIDE 112 mmol/L (98-107); Calcium 9.9 mg/dL (8.4-10.2); Carbon Dioxide 24 mmol/L (22-30); Creatinine 1 0.48 mg/dL (0.52-1.04); Glucose 133 mg/dL (74-106); Potassium 3.6 mmol/L (3.5-5.1); SODIUM 140 mmol/L (137-145)
[2019-01-29 06:50] LABS: Lymphocytes 6 % (24-44); Neutrophils 94 % (36.0-66.0); Total Cells Counted 100
[2019-01-29 06:51] LABS: ANISOCYTOSIS 1+; Platelet Estimate NORMAL (NORMAL)
[2019-01-29] MEDS ORDERED: Ativan 2 MG/1 ML VIAL IV ONE (08:01)
[2019-01-29] MEDS ORDERED: Ativan 2 MG/1 ML VIAL ONE (08:16)
[2019-01-29] MEDS: Inderal 20 MG PO SCH ×3 (08:35→21:23)
[2019-01-29] MEDS: Lugol's Solution PO SCH ×4 (08:36→21:46)
[2019-01-29] MEDS: PATIENT OWN MEDICATION PO SCH ×3 (08:39→21:24)
--- NOTE | 2019-01-29 08:50 | PCM.NOTE ---
Date and Time: 01/29/19 0844 Subjective Assessment: Pt increasingly disoriented today, the nurses are ghosts in hell, when the nurse leaves the room she tells the sitter "you are never going to see her again." She was agitated, would not take her meds. One mg ativan given IV. She is now more calm. She tells me she is at Dr. Rushing's office, and it is January 2020. She tells me she is sad, "Because I see what's happening. That dear sweet man committed suicide," although she is unable to tell me who. Per RN no hx alcohol use. Objective Exam General Appearance: mild distress (crying during exam, but cooperative), alert Neurologic Exam: cooperative, disoriented Skin Exam: normal color, warm, dry, No rash Ears, Nose, Throat Exam: moist mucous membranes Neck Exam: normal inspection Respiratory Exam: normal breath sounds, lungs clear, No crackles/rales, No rhonchi, No wheezing Cardiovascular Exam: regular rate/rhythm, normal heart sounds, No murmur Gastrointestinal/Abdomen Exam: soft, normal bowel sounds, tenderness ( generalized, but seems somewhat worse in epigastrum), No distention, No mass, No guarding, No rebound Extremity Exam: normal inspection, No pedal edema, No swelling OBJECTIVE DATA Vital Signs: Vital Signs - 24 hr Temp Pulse Resp BP Pulse Ox 01/29/19 00:00 97.8 F 74 24 184/71 92 L 01/28/19 20:32 71 20 96 01/28/19 20:00 98.2 F 74 18 133/59 98 01/28/19 16:00 98.0 F 76 20 140/71 95 01/28/19 12:00 98.5 F 72 24 164/67 94 L Pain Assessment - Last Documented Pain Intensity 4 Pain Scale Used [facility] Intake and Output: Intake & Output 01/26/19 01/27/19 01/28/19 01/29/19 11:59 11:59 11:59 11:59 Intake Total 1777 1571 720 480 Output Total 200 Balance 1777 1371 720 480 Weight 55.5 kg 55.5 kg 56.7 kg 56.7 kg Lab Results: Lab Results-Last 24 Hours 01/29/19 01/29/19 Range/Units 05:28 05:28 WBC 5.0 (4.0-10.5) K/mm3 RBC 3.95 L (4.1-5.4) M/mm3 Hgb 10.5 L (12.0-16.0) gm/dl Hct 31.7 L (35-47) % MCV 80.3 (78-100) fl MCH 26.5 (26-32) pg MCHC 33.1 (32-36) g/dl RDW 16.5 H (11.5-14.0) % Plt Count 181 (150-450) K/mm3 MPV 10.5 H (6-9.5) fl Segmented Neutrophils 94 H (36.0-66.0) % Lymphocytes (Manual) 6 L (24-44) % Platelet Estimate NORMAL (NORMAL) RBC Morphology ABNORMAL Anisocytosis 1+ Sodium 140 (137-145) mmol/L Potassium 3.6 (3.5-5.1) mmol/L Chloride 112 H (98-107) mmol/L Carbon Dioxide 24 (22-30) mmol/L Anion Gap 7.0 (5-15) MEQ/L BUN 21 H (7-17) mg/dL Creatinine 0.48 L (0.52-1.04) mg/dL Estimated GFR > 60.0 ML/MIN Glucose 133 H (74-106) mg/dL Calcium 9.9 (8.4-10.2) mg/dL Multi-Disciplinary Progress Notes: Multi-Disciplinary Progress Notes 01/28/19 14:06 Case Management Note by Bernarda Muniz REFERRAL FAXED TO [facility] AT THIS TIME. Initialized on 01/28/19 14:06 - END OF NOTE 01/28/19 12:00 (created 01/28/19 13:54) Case Management Note by Bernarda Muniz VISITED WITH PT AND REVIEWED DISCHARGE PLANS, REPORTS THAT SHE IS NOW AGREEABLE TO HAVE [facility] FOR A SHORT AMOUNT OF TIME ON DISCHARGE, REPORTS SHE WILL DO WHATEVER DR. JOHNSTON THINKS SHE NEEDS. REQUESTS [facility]ERRAL TO [facility] ON DISCHARGE. Initialized on 01/28/19 13:54 - END OF NOTE Assessment/Plan (1) Altered mental status Current Visit: Yes Status: Acute Qualifiers: Altered mental status type: disorientation Qualified Code(s): R41.0 - Disorientation, unspecified Assessment & Plan: She has had some of this during her stay, but this appears to be worse than previously noted. Could be due to hospital stay, may have some underlying dementia. Check CT head stat. Code(s): R41.82 - ALTERED MENTAL STATUS, UNSPECIFIED (2) Abdominal pain Current Visit: Yes Status: Acute Qualifiers: Abdominal location: epigastric Qualified Code(s): R10.13 - Epigastric pain Assessment & Plan: gastritis - on carafate and PPI. Code(s): R10.9 - UNSPECIFIED ABDOMINAL PAIN (3) Atrial fibrillation with RVR Current Visit: Yes Status: Acute Assessment & Plan: rate controlled on propranolol 80mg q8h. On xarelto. Code(s): I48.91 - UNSPECIFIED ATRIAL FIBRILLATION (4) Hyperthyroidism Current Visit: Yes Status: Acute Assessment & Plan: On Iodine q8h. Her HR is wnl. Code(s): E05.90 - THYROTOXICOSIS, UNSP WITHOUT THYROTOXIC CRISIS OR STORM (5) UTI (urinary tract infection) Current Visit: Yes Status: Acute Code(s): N39.0 - URINARY TRACT INFECTION, SITE NOT SPECIFIED (6) Elevated blood pressure reading Current Visit: Yes Status: Acute Assessment & Plan: could be d/t agitation, will have it rechecked. Code(s): R03.0 - ELEVATED BLOOD-PRESSURE READING, W/O DIAGNOSIS OF HTN
[2019-01-29] MEDS: solu-CORTEF 100MG IV SCH ×2 (11:36→20:07)
[2019-01-29] MEDS: Carafate 1 GM PO SCH ×5 (11:41→21:46)
[2019-01-29] MEDS: Sodium Chloride 0.9% 10 ML FLUSH Syringe IV SCH ×3 (11:41→21:44)
[2019-01-29] MEDS: Protonix 40MG Tablet PO SCH ×3 (11:52→21:46)
[2019-01-29] MEDS: Lidoderm Patch 5% TOP SCH (11:52)
[2019-01-29] MEDS: FEOSOL 325 MG PO SCH (11:52)
[2019-01-29] MEDS: TYLENOL 325 MG PO PRN (13:37)
[2019-01-29] MEDS: XARELTO 10 MG TABLET PO SCH (17:46)
[2019-01-29] MEDS: Norco 10/325 MG Tablet PO PRN (20:04)
[2019-01-29] MEDS: PATIENT OWN MEDICATION IH SCH (20:30)
[2019-01-30] MEDS ORDERED: Haldol 5 MG IM ONE (01:13)
[2019-01-30] MEDS: Inderal 20 MG PO SCH ×3 (07:17→23:11)
[2019-01-30] MEDS: PATIENT OWN MEDICATION IH SCH ×2 (07:30→20:59)
[2019-01-30] MEDS ORDERED: APRESOLINE 20 MG/ML INJ IV PRN (08:36)
--- NOTE | 2019-01-30 08:36 | PCM.NOTE ---
Date and Time: 01/30/19830 Subjective Assessment: patient has been very agitated and hallucinating, received haldol x 1 dose last night. she is alert, oriented to self and place but not time. asking me "are you ?" this morning, she denies pain Objective Exam General Appearance: no apparent distress Neurologic Exam: alert, cooperative, rhinestone setter II-XII nml as tested, disoriented, confusion, No oriented x 3, No motor deficits, No agitation, No motor weakness, No facial droop, No slurred speech Skin Exam: normal color, warm, dry Respiratory Exam: normal breath sounds, lungs clear, No respiratory distress Cardiovascular Exam: regular rate/rhythm, normal heart sounds Gastrointestinal/Abdomen Exam: soft, No tenderness, No mass Extremity Exam: normal inspection, normal range of motion OBJECTIVE DATA Vital Signs: Vital Signs - 24 hr Temp Pulse Resp BP Pulse Ox 01/30/19 07:37 98.4 F 83 24 194/84 96 01/30/19 04:00 96 01/30/19 00:00 98.3 F 70 18 164/69 96 01/29/19 20:30 80 20 96 01/29/19 20:00 97.4 F 69 20 141/64 96 01/29/19 16:00 97.9 F 72 24 136/60 94 L 01/29/19 12:00 97.9 F 72 24 136/60 94 L Oxygen-Last 24 hours O2 Percentage 2 Liters = 28% Pain Assessment - Last Documented Pain Intensity 9 Pain Scale Used [facility] Intake and Output: Intake & Output 01/27/19 01/28/19 01/29/19 01/30/19 11:59 11:59 11:59 11:59 Intake Total 1571 720 480 480 Output Total 200 Balance 1371 720 480 480 Weight 55.5 kg 56.7 kg 56.7 kg Radiology Exams: Radiology Procedures Category Date Time Status CHEST 1 VIEW (PORTABLE) Urgent Exams 01/30/19 08:30 Ordered Assessment/Plan (1) Acute delirium Current Visit: Yes Status: Acute Assessment & Plan: check cbc, cmp and u/a as well as chest xray. hydrocortisone was stopped yesterday by Dr Acevedo. will investigate for reversible causes, may still be related to acute hyperthyroidism. will repeat TFT today as well Code(s): R41.0 - DISORIENTATION, UNSPECIFIED (2) Atrial fibrillation with RVR Current Visit: Yes Status: Acute Assessment & Plan: rate is currently controlled Code(s): I48.91 - UNSPECIFIED ATRIAL FIBRILLATION (3) Hyperthyroidism Current Visit: Yes Status: Acute Code(s): E05.90 - THYROTOXICOSIS, UNSP WITHOUT THYROTOXIC CRISIS OR STORM (4) Hypertensive urgency Current Visit: Yes Status: Acute Assessment & Plan: add prn hydralazine, might be related to altered mental status Code(s): I16.0 - HYPERTENSIVE URGENCY
[2019-01-30] MEDS: Carafate 1 GM PO SCH ×4 (08:38→23:11)
--- NOTE | 2019-01-30 09:08 | XRAY ---
Indication: Delirium. Atrial fibrillation. Hyperthyroid. Comparison: March 18, 2013. Portable chest again hyperinflated with anatomic variant for azygos lobe. There is now mild pulmonary edema with slight worsening cardiomegaly but no large effusion. Also new right perihilar linear opacities, subsegmental atelectasis/scarring. New left sided dual lead pacemaker without complications. Bony thorax again demonstrates mild osteopenia, mild scattered changes, and mild dextroscoliosis. Impression: Worsening cardiomegaly with now mild pulmonary edema. Rule out fluid overload versus early/mild cardiac decompensation.
[2019-01-30 09:27] LABS: Appearance SLIGHTLY CLOUDY (CLEAR); Bacteria FEW /HPF (NEGATIVE); Bilirubin NEGATIVE (NEGATIVE); Blood SMALL Ery/ul (0-5); Epithelial Cells RARE /HPF (FEW); Glucose NEGATIVE (NEGATIVE); Ketones NEGATIVE (NEGATIVE); Leukocyte Esterase LARGE (NEGATIVE); Mucus SLIGHT /HPF (NEGATIVE); Nitrite NEGATIVE (NEGATIVE); Protein,Urine Dip 30 (Negative); Specific Gravity 1.016 (1.005-1.025); Urobilinogen NEGATIVE mg/dL (0-1); WBC 26-50 /HPF (0-5)
[2019-01-30] MEDS: Sodium Chloride 0.9% 10 ML FLUSH Syringe IV SCH ×3 (09:30→23:10)
[2019-01-30 09:54] LABS: BASOPHIL % 0.2 % (0.0-0.4); Basophil (Absolute #) 0.02 (0-0.4); Eosinophil % 0.2 % (0.00-5.0); Eosinophil (Absolute #) 0.02 (0-0.5); Granulocyte Absolute (ANC) 7.39 (1.4-6.9); Granulocytes % 77.4 % (36.0-66.0); Hematocrit 34.4 % (35-47); Lymphocyte (Absolute #) 1.17 (1.0-4.6); Lymphocytes % 12.2 % (24.0-44.0); Mean Cell Volume 81.3 fl (78-100); Mean Platelet Volume 9.9 fl (6-9.5); Monocyte (Absolute #) 0.96 (0.0-1.3); Platelet Count 207 K/mm3 (150-450); Red Blood Count 4.23 M/mm3 (4.1-5.4); Red Cell Distribution Width 16.9 % (11.5-14.0); White Blood Count 9.6 K/mm3 (4.0-10.5)
[2019-01-30] MEDS: Lasix 20 MG/2 ML IV SCH (09:59)
[2019-01-30] MEDS: Lugol's Solution PO SCH ×3 (10:08→23:12)
[2019-01-30] MEDS: Lidoderm Patch 5% TOP SCH (10:09)
[2019-01-30 10:47] LABS: ALBUMIN 3.2 g/dL (3.5-5.0); ALKALINE PHOSPHATASE 66 U/L (38-126); ANION GAP 7.9 MEQ/L (5-15); BLOOD UREA NITROGEN 21 mg/dL (7-17); CHLORIDE 114 mmol/L (98-107); Calcium 9.6 mg/dL (8.4-10.2); Carbon Dioxide 25 mmol/L (22-30); Creatinine 1 0.61 mg/dL (0.52-1.04); Glucose 109 mg/dL (74-106); Potassium 3.5 mmol/L (3.5-5.1); SGOT/AST 26 U/L (14-36); SGPT/ALT 23 U/L (0-35); SODIUM 144 mmol/L (137-145); TSH, 3RD Generation < 0.015 mIU/L (0.47-4.68); Total Protein 5.7 g/dL (6.3-8.2)
[2019-01-30] MEDS: BACTRIM DS TABLET PO SCH ×2 (13:47→23:11)
[2019-01-30] MEDS: FEOSOL 325 MG PO SCH (13:48)
[2019-01-30] MEDS: Klor Con 10 MEQ PO SCH (13:49)
[2019-01-30] MEDS: Protonix 40MG Tablet PO SCH ×2 (13:49→23:12)
[2019-01-30] MEDS: PATIENT OWN MEDICATION PO SCH ×3 (13:49→23:12)
[2019-01-30] MEDS: Norco 10/325 MG Tablet PO PRN (14:24)
[2019-01-30] MEDS ORDERED: Ativan 2 MG/1 ML VIAL IV ONE (14:45)
[2019-01-30] MEDS: XARELTO 10 MG TABLET PO SCH (18:25)
[2019-01-30] MEDS: SUBLIMAZE 100 MCG/2 ML IV PRN (23:03)
[2019-01-31] MEDS: Ativan 0.5 MG PO PRN ×2 (00:17→06:20)
[2019-01-31] MEDS: SUBLIMAZE 100 MCG/2 ML IV PRN ×4 (04:41→22:16)
[2019-01-31] MEDS: Sodium Chloride 0.9% 10 ML FLUSH Syringe IV SCH ×3 (04:45→22:15)
[2019-01-31] MEDS ORDERED: PROVENTIL 2.5 MG/3 ML NEB IH ONE (04:51)
[2019-01-31] MEDS ORDERED: PROVENTIL 2.5 MG/3 ML NEB IH PRN (04:58)
[2019-01-31] MEDS: PATIENT OWN MEDICATION IH SCH ×2 (05:00→20:50)
[2019-01-31 05:52] LABS: BASOPHIL % 0.1 % (0.0-0.4); Basophil (Absolute #) 0.01 (0-0.4); Eosinophil % 0.4 % (0.00-5.0); Eosinophil (Absolute #) 0.03 (0-0.5); Granulocyte Absolute (ANC) 5.45 (1.4-6.9); Granulocytes % 73.5 % (36.0-66.0); Hematocrit 35.3 % (35-47); Hemoglobin 11.2 gm/dl (12.0-16.0); Lymphocyte (Absolute #) 1.25 (1.0-4.6); Lymphocytes % 16.8 % (24.0-44.0); Mean Corpuscular Hgb Concent. 31.7 g/dl (32-36); Mean Platelet Volume 10.4 fl (6-9.5); Monocyte (Absolute #) 0.68 (0.0-1.3); Monocytes % 9.2 % (0.0-12.0); Platelet Count 210 K/mm3 (150-450); Red Blood Count 4.36 M/mm3 (4.1-5.4); Red Cell Distribution Width 17.1 % (11.5-14.0); White Blood Count 7.4 K/mm3 (4.0-10.5)
[2019-01-31 06:00] LABS: Mean Corpuscular Hemoglobin 25.6 pg (26-32)
[2019-01-31 06:08] LABS: ANION GAP 9.6 MEQ/L (5-15); BLOOD UREA NITROGEN 20 mg/dL (7-17); CHLORIDE 105 mmol/L (98-107); Calcium 9.2 mg/dL (8.4-10.2); Carbon Dioxide 29 mmol/L (22-30); Glucose 90 mg/dL (74-106); MAGNESIUM 1.6 mg/dL (1.6-2.3); SODIUM 141 mmol/L (137-145)
[2019-01-31] MEDS: Inderal 20 MG PO SCH ×3 (06:22→21:02)
[2019-01-31] MEDS: Lugol's Solution PO SCH ×3 (06:23→21:18)
[2019-01-31] MEDS: Carafate 1 GM PO SCH ×4 (07:43→21:02)
--- NOTE | 2019-01-31 08:35 | PCM.NOTE ---
Date and Time: 01/31/19832 Subjective Assessment: patient sleeping comfortably this morning, she has been very confused and refusing her po meds. Objective Exam General Appearance: no apparent distress, alert Neurologic Exam: alert Skin Exam: normal color, warm, dry Respiratory Exam: normal breath sounds, lungs clear Cardiovascular Exam: regular rate/rhythm, normal heart sounds Gastrointestinal/Abdomen Exam: soft, No tenderness, No mass Extremity Exam: normal inspection, normal range of motion OBJECTIVE DATA Vital Signs: Vital Signs - 24 hr Temp Pulse Resp BP Pulse Ox 01/31/19 07:59 98.7 F 74 20 150/67 94 L 01/31/19 04:59 74 21 96 01/31/19 04:00 98.2 F 74 20 160/68 98 01/30/19 23:33 97.5 F 70 20 151/67 92 L 01/30/19 20:00 97.9 F 70 18 149/65 94 L 01/30/19 16:20 98.0 F 69 16 137/62 96 01/30/19 11:42 98.2 F 69 20 135/86 99 01/30/19 09:31 74 16 96 01/30/19 09:30 76 143/65 Oxygen-Last 24 hours O2 Percentage 2 Liters = 28% O2 Percentage 3 Liters = 32% O2 Percentage 3 Liters = 32% O2 Percentage 3 Liters = 32% O2 Percentage 3 Liters = 32% O2 Percentage 3 Liters = 32% Pain Assessment - Last Documented Pain Intensity 10 Pain Scale Used 0-10 Pain Scale Intake and Output: Intake & Output 01/28/19 01/29/19 01/30/19 01/31/19 11:59 11:59 11:59 11:59 Intake Total 720 480 480 640 Output Total 600 2800 Balance 720 480 120 2160 Weight 56.7 kg 56.7 kg Lab Results: Lab Results-Last 24 Hours 01/30/19 01/30/19 01/30/19 Range/Units 09:12 09:43 09:43 WBC 9.6 (4.0-10.5) K/mm3 RBC 4.23 (4.1-5.4) M/mm3 Hgb 11.0 L (12.0-16.0) gm/dl Hct 34.4 L (35-47) % MCV 81.3 (78-100) fl MCH 26.0 (26-32) pg MCHC 32.0 (32-36) g/dl RDW 16.9 H (11.5-14.0) % Plt Count 207 (150-450) K/mm3 MPV 9.9 H (6-9.5) fl Gran % 77.4 H (36.0-66.0) % Eos # (Auto) 0.02 (0-0.5) Absolute Lymphs (auto) 1.17 (1.0-4.6) Absolute Monos (auto) 0.96 (0.0-1.3) Lymphocytes % 12.2 L (24.0-44.0) % Monocytes % 10.0 (0.0-12.0) % Eosinophils % 0.2 (0.00-5.0) % Basophils % 0.2 (0.0-0.4) % Absolute Granulocytes 7.39 H (1.4-6.9) Basophils # 0.02 (0-0.4) Sodium 144 (137-145) mmol/L Potassium 3.5 (3.5-5.1) mmol/L Chloride 114 H (98-107) mmol/L Carbon Dioxide 25 (22-30) mmol/L Anion Gap 7.9 (5-15) MEQ/L BUN 21 H (7-17) mg/dL Creatinine 0.61 (0.52-1.04) mg/dL Estimated GFR > 60.0 ML/MIN Glucose 109 H (74-106) mg/dL Calcium 9.6 (8.4-10.2) mg/dL Magnesium (1.6-2.3) mg/dL Total Bilirubin 0.50 (0.2-1.3) mg/dL AST 26 (14-36) U/L ALT 23 (0-35) U/L Alkaline Phosphatase 66 (38-126) U/L Serum Total Protein 5.7 L (6.3-8.2) g/dL Albumin 3.2 L (3.5-5.0) g/dL Free T4 (0.76-1.46) ng/dL TSH 3rd Generation < 0.015 L (0.47-4.68) mIU/L Urine Color YELLOW (YELLOW) Urine Appearance SLIGHTLY CLOUDY (CLEAR) Urine pH 7.0 (5-6) Ur Specific [place] 1.016 (1.005-1.025) Urine Protein 30 (Negative) Urine Ketones NEGATIVE (NEGATIVE) Urine Blood SMALL (0-5) Braulio/ul Urine Nitrite NEGATIVE (NEGATIVE) Urine Bilirubin NEGATIVE (NEGATIVE) Urine Urobilinogen NEGATIVE (0-1) mg/dL Ur Leukocyte Esterase LARGE (NEGATIVE) Urine WBC (Auto) 26-50 (0-5) /HPF Urine RBC (Auto) 6-10 (0-2) /HPF U Epithel Cells (Auto) RARE (FEW) /HPF Urine Bacteria (Auto) FEW (NEGATIVE) /HPF Urine Mucus (Auto) SLIGHT (NEGATIVE) /HPF Urine Culture Reflexed YES (NO) Urine Glucose NEGATIVE (NEGATIVE) mg/dL 01/30/19 01/31/19 01/31/19 Range/Units 09:43 05:07 05:07 WBC 7.4 (4.0-10.5) K/mm3 RBC 4.36 (4.1-5.4) M/mm3 Hgb 11.2 L (12.0-16.0) gm/dl Hct 35.3 (35-47) % MCV 81.0 (78-100) fl MCH 25.6 L (26-32) pg MCHC 31.7 L (32-36) g/dl RDW 17.1 H (11.5-14.0) % Plt Count 210 (150-450) K/mm3 MPV 10.4 H (6-9.5) fl Gran % 73.5 H (36.0-66.0) % Eos # (Auto) 0.03 (0-0.5) Absolute Lymphs (auto) 1.25 (1.0-4.6) Absolute Monos (auto) 0.68 (0.0-1.3) Lymphocytes % 16.8 L (24.0-44.0) % Monocytes % 9.2 (0.0-12.0) % Eosinophils % 0.4 (0.00-5.0) % Basophils % 0.1 (0.0-0.4) % Absolute Granulocytes 5.45 (1.4-6.9) Basophils # 0.01 (0-0.4) Sodium 141 (137-145) mmol/L Potassium 3.0 L (3.5-5.1) mmol/L Chloride 105 (98-107) mmol/L Carbon Dioxide 29 (22-30) mmol/L Anion Gap 9.6 (5-15) MEQ/L BUN 20 H (7-17) mg/dL Creatinine 0.60 (0.52-1.04) mg/dL Estimated GFR > 60.0 ML/MIN Glucose 90 (74-106) mg/dL Calcium 9.2 (8.4-10.2) mg/dL Magnesium 1.6 (1.6-2.3) mg/dL Total Bilirubin (0.2-1.3) mg/dL AST (14-36) U/L ALT (0-35) U/L Alkaline Phosphatase (38-126) U/L Serum Total Protein (6.3-8.2) g/dL Albumin (3.5-5.0) g/dL Free T4 3.55 H (0.76-1.46) ng/dL TSH 3rd Generation (0.47-4.68) mIU/L Urine Color (YELLOW) Urine Appearance (CLEAR) Urine pH (5-6) Ur Specific [place] (1.005-1.025) Urine Protein (Negative) Urine Ketones (NEGATIVE) Urine Blood (0-5) Braulio/ul Urine Nitrite (NEGATIVE) Urine Bilirubin (NEGATIVE) Urine Urobilinogen (0-1) mg/dL Ur Leukocyte Esterase (NEGATIVE) Urine WBC (Auto) (0-5) /HPF Urine RBC (Auto) (0-2) /HPF U Epithel Cells (Auto) (FEW) /HPF Urine Bacteria (Auto) (NEGATIVE) /HPF Urine Mucus (Auto) (NEGATIVE) /HPF Urine Culture Reflexed (NO) Urine Glucose (NEGATIVE) mg/dL Radiology Exams: Radiology Procedures Category Date Time Status CHEST 1 VIEW (PORTABLE) Urgent Exams 01/30/19 08:30 Completed Assessment/Plan (1) Acute delirium Current Visit: Yes Status: Acute Assessment & Plan: urine culture pending. covering with bactrim at this time Code(s): R41.0 - DISORIENTATION, UNSPECIFIED (2) Atrial fibrillation with RVR Current Visit: Yes Status: Acute Assessment & Plan: rate controlled Code(s): I48.91 - UNSPECIFIED ATRIAL FIBRILLATION (3) Hyperthyroidism Current Visit: Yes Status: Acute Assessment & Plan: stressed compliance with methimazole and inderal Code(s): E05.90 - THYROTOXICOSIS, UNSP WITHOUT THYROTOXIC CRISIS OR STORM (4) Hypertensive urgency Current Visit: Yes Status: Acute Assessment & Plan: improved Code(s): I16.0 - HYPERTENSIVE URGENCY
[2019-01-31] MEDS: BACTRIM DS TABLET PO SCH ×2 (09:33→21:02)
[2019-01-31] MEDS: Protonix 40MG Tablet PO SCH ×2 (09:33→21:02)
[2019-01-31] MEDS: Klor Con 10 MEQ PO SCH (09:33)
[2019-01-31] MEDS: FEOSOL 325 MG PO SCH (09:34)
[2019-01-31] MEDS: PATIENT OWN MEDICATION PO SCH ×4 (09:35→21:10)
[2019-01-31] MEDS: Lasix 20 MG/2 ML IV SCH (09:40)
[2019-01-31] MEDS: Lidoderm Patch 5% TOP SCH (10:11)
[2019-01-31] MEDS: POTASSIUM CHLORIDE 20 mEq IN WATER 100ML 20 MEQ/100 ML BAG IV SCH ×2 (10:11→12:36)
[2019-01-31] MEDS: Sodium Chloride 0.9% 500 ML 500 ML IV SCH (12:36)
[2019-01-31] MEDS: Norco 10/325 MG Tablet PO PRN ×2 (14:22→21:02)
[2019-01-31] MEDS: XARELTO 10 MG TABLET PO SCH (17:51)
[2019-02-01] MEDS: SUBLIMAZE 100 MCG/2 ML IV PRN ×2 (02:40→07:42)
[2019-02-01] MEDS: Inderal 20 MG PO SCH ×3 (05:49→21:47)
[2019-02-01] MEDS: Lugol's Solution PO SCH ×3 (05:50→21:43)
[2019-02-01] MEDS: Sodium Chloride 0.9% 10 ML FLUSH Syringe IV SCH ×3 (05:50→21:49)
[2019-02-01 06:14] LABS: BASOPHIL % 0.1 % (0.0-0.4); Basophil (Absolute #) 0.01 (0-0.4); Eosinophil % 1.4 % (0.00-5.0); Granulocytes % 73.4 % (36.0-66.0); Hematocrit 36.5 % (35-47); Hemoglobin 11.5 gm/dl (12.0-16.0); Lymphocyte (Absolute #) 1.14 (1.0-4.6); Lymphocytes % 15.8 % (24.0-44.0); Mean Cell Volume 80.6 fl (78-100); Mean Corpuscular Hgb Concent. 31.5 g/dl (32-36); Mean Platelet Volume 10.7 fl (6-9.5); Monocyte (Absolute #) 0.67 (0.0-1.3); Monocytes % 9.3 % (0.0-12.0); Platelet Count 208 K/mm3 (150-450); Red Blood Count 4.53 M/mm3 (4.1-5.4); Red Cell Distribution Width 17.1 % (11.5-14.0); White Blood Count 7.2 K/mm3 (4.0-10.5)
[2019-02-01 06:38] LABS: Mean Corpuscular Hemoglobin 25.3 pg (26-32)
[2019-02-01 06:53] LABS: ANION GAP 9.4 MEQ/L (5-15); BLOOD UREA NITROGEN 13 mg/dL (7-17); CHLORIDE 102 mmol/L (98-107); Calcium 9.4 mg/dL (8.4-10.2); Carbon Dioxide 30 mmol/L (22-30); Creatinine 1 0.63 mg/dL (0.52-1.04); Glucose 110 mg/dL (74-106); Potassium 3.6 mmol/L (3.5-5.1); SODIUM 138 mmol/L (137-145)
[2019-02-01] MEDS: PATIENT OWN MEDICATION IH SCH ×2 (07:40→20:08)
[2019-02-01] MEDS: Carafate 1 GM PO SCH ×4 (07:43→21:47)
--- NOTE | 2019-02-01 08:47 | PCM.NOTE ---
Date and Time: 02/01/19 0844 Subjective Assessment: patient is lucid and feels well today. no problems or concerns this morning. Objective Exam General Appearance: no apparent distress, alert Neurologic Exam: alert, oriented x 3 Skin Exam: normal color, warm, dry Respiratory Exam: normal breath sounds, lungs clear, No respiratory distress Cardiovascular Exam: regular rate/rhythm, normal heart sounds Gastrointestinal/Abdomen Exam: soft, No tenderness, No mass Extremity Exam: normal inspection, normal range of motion OBJECTIVE DATA Vital Signs: Vital Signs - 24 hr Temp Pulse Resp BP Pulse Ox 02/01/19 07:47 98.5 F 73 17 132/59 97 02/01/19 07:41 77 16 97 02/01/19 03:48 98.3 F 71 18 156/69 97 02/01/19 00:00 98.2 F 71 18 129/61 95 01/31/19 20:50 68 20 96 01/31/19 20:00 97.8 F 70 20 115/56 97 01/31/19 16:00 98.6 F 69 18 107/53 94 L 01/31/19 12:00 97.9 F 77 25 H 125/57 95 Oxygen-Last 24 hours O2 Percentage 2 Liters = 28% O2 Percentage 2 Liters = 28% O2 Percentage 2 Liters = 28% O2 Percentage 2 Liters = 28% O2 Percentage 2 Liters = 28% O2 Percentage 2 Liters = 28% Pain Assessment - Last Documented Pain Intensity 10 Pain Scale Used 0-10 Pain Scale Intake and Output: Intake & Output 01/29/19 01/30/19 01/31/19 02/01/19 11:59 11:59 11:59 11:59 Intake Total 480 555 708 4746 Output Total 600 2800 1450 Balance 480 -120 -2160 -51 Weight 56.7 kg Lab Results: Lab Results-Last 24 Hours 01/31/19 02/01/19 02/01/19 Range/Units 17:51 05:30 05:30 WBC 7.2 (4.0-10.5) K/mm3 RBC 4.53 (4.1-5.4) M/mm3 Hgb 11.5 L (12.0-16.0) gm/dl Hct 36.5 (35-47) % MCV 80.6 (78-100) fl MCH 25.3 L (26-32) pg MCHC 31.5 L (32-36) g/dl RDW 17.1 H (11.5-14.0) % Plt Count 208 (150-450) K/mm3 MPV 10.7 H (6-9.5) fl Gran % 73.4 H (36.0-66.0) % Eos # (Auto) 0.10 (0-0.5) Absolute Lymphs (auto) 1.14 (1.0-4.6) Absolute Monos (auto) 0.67 (0.0-1.3) Lymphocytes % 15.8 L (24.0-44.0) % Monocytes % 9.3 (0.0-12.0) % Eosinophils % 1.4 (0.00-5.0) % Basophils % 0.1 (0.0-0.4) % Absolute Granulocytes 5.30 (1.4-6.9) Basophils # 0.01 (0-0.4) Sodium 138 (137-145) mmol/L Potassium 3.3 L 3.6 (3.5-5.1) mmol/L Chloride 102 (98-107) mmol/L Carbon Dioxide 30 (22-30) mmol/L Anion Gap 9.4 (5-15) MEQ/L BUN 13 (7-17) mg/dL Creatinine 0.63 (0.52-1.04) mg/dL Estimated GFR > 60.0 ML/MIN Glucose 110 H (74-106) mg/dL Calcium 9.4 (8.4-10.2) mg/dL Magnesium (1.6-2.3) mg/dL 02/01/19 Range/Units 05:30 WBC (4.0-10.5) K/mm3 RBC (4.1-5.4) M/mm3 Hgb (12.0-16.0) gm/dl Hct (35-47) % MCV (78-100) fl MCH (26-32) pg MCHC (32-36) g/dl RDW (11.5-14.0) % Plt Count (150-450) K/mm3 MPV (6-9.5) fl Gran % (36.0-66.0) % Eos # (Auto) (0-0.5) Absolute Lymphs (auto) (1.0-4.6) Absolute Monos (auto) (0.0-1.3) Lymphocytes % (24.0-44.0) % Monocytes % (0.0-12.0) % Eosinophils % (0.00-5.0) % Basophils % (0.0-0.4) % Absolute Granulocytes (1.4-6.9) Basophils # (0-0.4) Sodium (137-145) mmol/L Potassium (3.5-5.1) mmol/L Chloride (98-107) mmol/L Carbon Dioxide (22-30) mmol/L Anion Gap (5-15) MEQ/L BUN (7-17) mg/dL Creatinine (0.52-1.04) mg/dL Estimated GFR ML/MIN Glucose (74-106) mg/dL Calcium (8.4-10.2) mg/dL Magnesium 1.4 L (1.6-2.3) mg/dL Radiology Exams: Radiology Procedures Category Date Time Status CHEST 1 VIEW (PORTABLE) Urgent Exams 01/30/19 08:30 Completed Assessment/Plan (1) Acute delirium Current Visit: Yes Status: Acute Assessment & Plan: appears resolved at this time, will stop bactrim since urine culture is negative. Code(s): R41.0 - DISORIENTATION, UNSPECIFIED (2) Atrial fibrillation with RVR Current Visit: Yes Status: Acute Assessment & Plan: rate controlled on inderal, continue xarelto Code(s): I48.91 - UNSPECIFIED ATRIAL FIBRILLATION (3) Hyperthyroidism Current Visit: Yes Status: Acute Assessment & Plan: on methimazole 20mg tid, continue propranolol. will need ecf placement Code(s): E05.90 - THYROTOXICOSIS, UNSP WITHOUT THYROTOXIC CRISIS OR STORM (4) Hypertensive urgency Current Visit: Yes Status: Acute Code(s): I16.0 - HYPERTENSIVE URGENCY
[2019-02-01] MEDS: FEOSOL 325 MG PO SCH (10:02)
[2019-02-01] MEDS: Lidoderm Patch 5% TOP SCH (10:03)
[2019-02-01] MEDS: Klor Con 10 MEQ PO SCH (10:03)
[2019-02-01] MEDS: PATIENT OWN MEDICATION PO SCH ×3 (10:04→21:48)
[2019-02-01] MEDS: Protonix 40MG Tablet PO SCH ×2 (10:05→21:47)
[2019-02-01] MEDS: LASIX 20 MG PO SCH (10:14)
[2019-02-01] MEDS: Norco 10/325 MG Tablet PO PRN ×3 (10:14→21:49)
[2019-02-01] MEDS: MAG-OX 400 PO SCH (10:14)
[2019-02-01] MEDS: Ativan 0.5 MG PO PRN ×2 (13:12→21:48)
[2019-02-01] MEDS: XARELTO 10 MG TABLET PO SCH (17:27)
[2019-02-02 04:27] LABS: ALBUMIN 2.8 g/dL (3.5-5.0); ALKALINE PHOSPHATASE 71 U/L (38-126); BLOOD UREA NITROGEN 12 mg/dL (7-17); CHLORIDE 106 mmol/L (98-107); Carbon Dioxide 29 mmol/L (22-30); Creatinine 1 0.57 mg/dL (0.52-1.04); Glucose 95 mg/dL (74-106); MAGNESIUM 1.6 mg/dL (1.6-2.3); Potassium 4.2 mmol/L (3.5-5.1); SGOT/AST 14 U/L (14-36); SGPT/ALT 16 U/L (0-35); SODIUM 138 mmol/L (137-145); Total Protein 5.4 g/dL (6.3-8.2)
[2019-02-02 04:31] LABS: BASOPHIL % 0.1 % (0.0-0.4); Basophil (Absolute #) 0.01 (0-0.4); Eosinophil % 2.9 % (0.00-5.0); Granulocyte Absolute (ANC) 4.48 (1.4-6.9); Granulocytes % 65.1 % (36.0-66.0); Hematocrit 33.8 % (35-47); Hemoglobin 10.7 gm/dl (12.0-16.0); Lymphocyte (Absolute #) 1.38 (1.0-4.6); Mean Cell Volume 81.1 fl (78-100); Mean Corpuscular Hgb Concent. 31.7 g/dl (32-36); Mean Platelet Volume 10.4 fl (6-9.5); Monocyte (Absolute #) 0.82 (0.0-1.3); Monocytes % 11.9 % (0.0-12.0); Platelet Count 178 K/mm3 (150-450); Red Blood Count 4.17 M/mm3 (4.1-5.4); Red Cell Distribution Width 16.7 % (11.5-14.0); White Blood Count 6.9 K/mm3 (4.0-10.5)
[2019-02-02 04:32] LABS: Mean Corpuscular Hemoglobin 25.6 pg (26-32)
[2019-02-02] MEDS: Inderal 20 MG PO SCH ×3 (05:32→21:21)
[2019-02-02] MEDS: Lugol's Solution PO SCH ×3 (05:32→21:19)
[2019-02-02] MEDS: Sodium Chloride 0.9% 10 ML FLUSH Syringe IV SCH ×3 (05:32→21:33)
[2019-02-02] MEDS: Carafate 1 GM PO SCH ×4 (08:00→21:21)
[2019-02-02] MEDS: PATIENT OWN MEDICATION IH SCH ×2 (08:07→20:26)
[2019-02-02] MEDS: Norco 10/325 MG Tablet PO PRN ×2 (08:54→21:23)
[2019-02-02] MEDS: Lidoderm Patch 5% TOP SCH (10:09)
[2019-02-02] MEDS: Protonix 40MG Tablet PO SCH ×2 (10:10→21:22)
[2019-02-02] MEDS: LASIX 20 MG PO SCH (10:10)
[2019-02-02] MEDS: FEOSOL 325 MG PO SCH (10:11)
[2019-02-02] MEDS: Klor Con 10 MEQ PO SCH (10:12)
[2019-02-02] MEDS: MAG-OX 400 PO SCH (10:12)
[2019-02-02] MEDS: PATIENT OWN MEDICATION PO SCH ×3 (10:12→21:22)
[2019-02-02] MEDS: XARELTO 10 MG TABLET PO SCH (17:47)
[2019-02-02] MEDS: Ativan 0.5 MG PO PRN (21:21)
[2019-02-03] MEDS: Lugol's Solution PO SCH ×3 (05:37→21:33)
[2019-02-03] MEDS: Norco 10/325 MG Tablet PO PRN ×3 (05:37→21:35)
[2019-02-03] MEDS: Inderal 20 MG PO SCH ×3 (05:37→21:36)
[2019-02-03] MEDS: Sodium Chloride 0.9% 10 ML FLUSH Syringe IV SCH ×3 (05:39→21:37)
[2019-02-03] MEDS: PATIENT OWN MEDICATION IH SCH ×2 (07:43→20:16)
[2019-02-03] MEDS: Carafate 1 GM PO SCH ×4 (07:52→21:36)
[2019-02-03] MEDS: Klor Con 10 MEQ PO SCH (09:09)
[2019-02-03] MEDS: Lidoderm Patch 5% TOP SCH (09:09)
[2019-02-03] MEDS: MAG-OX 400 PO SCH (09:09)
[2019-02-03] MEDS: LASIX 20 MG PO SCH (09:09)
[2019-02-03] MEDS: Protonix 40MG Tablet PO SCH ×2 (09:09→21:36)
[2019-02-03] MEDS: PATIENT OWN MEDICATION PO SCH ×3 (09:10→21:38)
[2019-02-03] MEDS: FEOSOL 325 MG PO SCH (09:10)
[2019-02-03] MEDS: XARELTO 10 MG TABLET PO SCH (17:41)
[2019-02-03] MEDS: Ativan 0.5 MG PO PRN (21:36)
[2019-02-04] MEDS: Lugol's Solution PO SCH ×3 (05:32→21:00)
[2019-02-04] MEDS: Inderal 20 MG PO SCH ×3 (05:35→22:02)
[2019-02-04] MEDS: Sodium Chloride 0.9% 10 ML FLUSH Syringe IV SCH (05:38)
[2019-02-04] MEDS: PATIENT OWN MEDICATION IH SCH ×2 (07:47→20:02)
[2019-02-04] MEDS: Carafate 1 GM PO SCH ×4 (07:52→20:59)
--- NOTE | 2019-02-04 08:46 | PCM.NOTE ---
Date and Time: 02/04/19 0844 Subjective Assessment: patient feels great, tolerating po and she is alert and oriented. she has been ambulating and looking forward to going to [facility] for rehab stay Objective Exam General Appearance: no apparent distress, alert Respiratory Exam: normal breath sounds, lungs clear, No respiratory distress Cardiovascular Exam: irregular Gastrointestinal/Abdomen Exam: soft, No tenderness, No mass Extremity Exam: normal inspection, normal range of motion OBJECTIVE DATA Vital Signs: Vital Signs - 24 hr Temp Pulse Resp BP BP Pulse Ox 02/04/19 07:48 83 18 94 L 02/04/19 07:21 98.7 F 78 20 114/56 144/64 97 02/04/19 04:15 98.3 F 76 18 119/54 95 02/04/19 00:11 98.7 F 74 18 134/58 95 02/03/19 20:17 65 18 93 L 02/03/19 20:15 98.8 F 71 20 117/56 96 02/03/19 16:11 98 F 62 18 110/56 95 02/03/19 12:17 97.9 F 76 20 104/58 96 Pain Assessment - Last Documented Pain Intensity 0 Pain Scale Used FLACC Intake and Output: Intake & Output 02/01/19 02/02/19 02/03/19 02/04/19 11:59 11:59 11:59 11:59 Intake Total 1775 454 8814 1080 Output Total 1450 700 Balance -51 304 834 1239 Assessment/Plan (1) Atrial fibrillation with RVR Current Visit: Yes Status: Acute Assessment & Plan: currently rate controlled on propranolol Code(s): I48.91 - UNSPECIFIED ATRIAL FIBRILLATION (2) Acute delirium Current Visit: Yes Status: Acute Assessment & Plan: resolved, doing much better. Code(s): R41.0 - DISORIENTATION, UNSPECIFIED (3) Hyperthyroidism Current Visit: Yes Status: Acute Assessment & Plan: improved with methimazole 20mg tid Code(s): E05.90 - THYROTOXICOSIS, UNSP WITHOUT THYROTOXIC CRISIS OR STORM (4) Hypertensive urgency Current Visit: Yes Status: Acute Code(s): I16.0 - HYPERTENSIVE URGENCY
[2019-02-04] MEDS: FEOSOL 325 MG PO SCH (10:32)
[2019-02-04] MEDS: PATIENT OWN MEDICATION PO SCH ×3 (10:33→20:59)
[2019-02-04] MEDS: LASIX 20 MG PO SCH (10:33)
[2019-02-04] MEDS: Protonix 40MG Tablet PO SCH ×2 (10:33→20:59)
[2019-02-04] MEDS: Klor Con 10 MEQ PO SCH (10:33)
[2019-02-04] MEDS: MAG-OX 400 PO SCH (10:33)
[2019-02-04] MEDS: Lidoderm Patch 5% TOP SCH (10:34)
[2019-02-04] MEDS: Norco 10/325 MG Tablet PO PRN ×2 (14:35→20:59)
[2019-02-04] MEDS: XARELTO 10 MG TABLET PO SCH (17:48)
[2019-02-04] MEDS: Ativan 0.5 MG PO PRN (20:59)
[2019-02-04] MEDS ORDERED: Inderal 20 MG ONE (21:50)
[2019-02-05] MEDS: Lugol's Solution PO SCH ×3 (05:50→22:29)
[2019-02-05] MEDS: Inderal 20 MG PO SCH ×3 (05:50→22:29)
[2019-02-05 06:31] LABS: BASOPHIL % 0.2 % (0.0-0.4); Basophil (Absolute #) 0.01 (0-0.4); Eosinophil % 2.8 % (0.00-5.0); Eosinophil (Absolute #) 0.18 (0-0.5); Granulocyte Absolute (ANC) 4.12 (1.4-6.9); Granulocytes % 63.7 % (36.0-66.0); Hematocrit 37.8 % (35-47); Hemoglobin 11.7 gm/dl (12.0-16.0); Lymphocyte (Absolute #) 1.29 (1.0-4.6); Lymphocytes % 19.9 % (24.0-44.0); Mean Cell Volume 81.8 fl (78-100); Mean Corpuscular Hemoglobin 25.3 pg (26-32); Mean Platelet Volume 10.4 fl (6-9.5); Monocyte (Absolute #) 0.87 (0.0-1.3); Monocytes % 13.4 % (0.0-12.0); Platelet Count 190 K/mm3 (150-450); Red Blood Count 4.62 M/mm3 (4.1-5.4); Red Cell Distribution Width 17.1 % (11.5-14.0); White Blood Count 6.5 K/mm3 (4.0-10.5)
[2019-02-05 06:46] LABS: ALBUMIN 3.3 g/dL (3.5-5.0); ALKALINE PHOSPHATASE 80 U/L (38-126); ANION GAP 11.2 MEQ/L (5-15); BLOOD UREA NITROGEN 14 mg/dL (7-17); CHLORIDE 106 mmol/L (98-107); Calcium 9.3 mg/dL (8.4-10.2); Carbon Dioxide 26 mmol/L (22-30); Creatinine 1 0.71 mg/dL (0.52-1.04); Glucose 124 mg/dL (74-106); Potassium 3.7 mmol/L (3.5-5.1); SGOT/AST 17 U/L (14-36); SGPT/ALT 15 U/L (0-35); SODIUM 139 mmol/L (137-145); Total Protein 6.1 g/dL (6.3-8.2)
[2019-02-05] MEDS: PATIENT OWN MEDICATION IH SCH (07:21)
[2019-02-05 08:10] LABS: Eosinophil 4 % (0.00-3.0); Lymphocytes 28 % (24-44); Monocyte 6 % (0.0-12.0); Neutrophils 62 % (36.0-66.0); Total Cells Counted 100
[2019-02-05 08:11] LABS: ANISOCYTOSIS 1+; Platelet Estimate NORMAL (NORMAL)
[2019-02-05] MEDS: Carafate 1 GM PO SCH ×4 (11:02→22:28)
[2019-02-05] MEDS: Protonix 40MG Tablet PO SCH ×2 (11:03→22:30)
[2019-02-05] MEDS: Lidoderm Patch 5% TOP SCH (11:03)
[2019-02-05] MEDS: LASIX 20 MG PO SCH (11:03)
[2019-02-05] MEDS: FEOSOL 325 MG PO SCH (11:03)
[2019-02-05] MEDS: MAG-OX 400 PO SCH (11:03)
[2019-02-05] MEDS: Klor Con 10 MEQ PO SCH (11:03)
[2019-02-05] MEDS: PATIENT OWN MEDICATION PO SCH ×3 (11:04→22:30)
[2019-02-05] MEDS: Norco 10/325 MG Tablet PO PRN ×2 (11:08→17:32)
[2019-02-05] MEDS: Sodium Chloride 0.9% 500 ML 500 ML IV SCH (12:05)
[2019-02-05] MEDS: XARELTO 10 MG TABLET PO SCH (17:28)
[2019-02-05] MEDS: Ativan 0.5 MG PO PRN (22:31)
[2019-02-06] MEDS: Lugol's Solution PO SCH (05:11)
[2019-02-06] MEDS: Inderal 20 MG PO SCH (05:11)
[2019-02-06] MEDS: Norco 10/325 MG Tablet PO PRN (05:21)
[2019-02-06] MEDS ORDERED: Advair Hfa 230/21 Mcg COMMON CANISTER IH SCH (07:00)
[2019-02-06] MEDS: Carafate 1 GM PO SCH (07:49)
[2019-02-06 08:31] VITALS: BP 123/74; PULSE 80; O2SAT 95
--- NOTE | 2019-02-06 09:31 | PCM.DS ---
Discharge Summary Date of Admission: 01/25/19 08:10 Admitting Physician: FAY JOHNSTON Consults: Consults on Case 01/24/19 07:55 Consult Cardiology ROUTINE Primary Care Provider: FAY JOHNSTON Allergies Allergies ceftriaxone sodium [From Rocephin] Allergy (Unknown, Verified 01/24/19 10:02) trouble breathing levofloxacin [From Levaquin] Allergy (Unknown, Verified 01/24/19 10:02) trouble breathing Hospital Summary - Hospital Course Hospital Course: patient was admitted with a fib with rvr, found to have hyperthyroidism. had some confusion, felt to have thyroid storm, doing much better and ambulating and no longer confused, heart rate is controlled. planning to return to home with home health - Vitals & Intake/Output Vital Signs: Vital Signs Temperature 98.2 F 02/06/19 08:00 Pulse Rate 80 02/06/19 08:00 Respiratory Rate 18 02/06/19 08:00 Blood Pressure 123/74 02/06/19 08:00 O2 Sat by Pulse Oximetry 95 02/06/19 08:00 Oxygen-Last Documented O2 Percentage 2 Liters = 28% Intake & Output: Intake & Output 02/03/19 02/04/19 02/05/19 02/06/19 11:59 11:59 11:59 11:59 Intake Total 1020 1080 1800 880 Output Total 700 Balance 320 1080 1800 880 - Lab Result Diagrams: 02/05/19 05:10 02/05/19 05:10 Micro Results-Entire Visit: Microbiology 01/30/19 09:12 Urine Culture - Final Urine, Void <10K NORMAL SKIN AMY PROBABLE SKIN CONTAMINANT 01/24/19 02:19 Urine Culture - Final Urine, Void <10K NORMAL SKIN AMY PROBABLE SKIN CONTAMINANT - Procedures and Test Procedures and Tests throughout Hospitalization: Therapy Orders & Screens 01/24/19 09:47 Smoking Cessation Education ONCE Comment: Diagnosis: afib with rvr Smoking Status: Current every day smoker How long have you smoked: age 16 Have you smoked in the past 12 months: Yes Approximately how many cigarettes per day: 10-20 Do you dip or chew tobacco: No If,Former Smoker,when did you quit: 1 1/2 YRS AGO 01/24/19 10:00 Oxygen NASAL CANNULA 2 lpm Comment: Diagnosis: afib with rvr 01/25/19 12:08 Respiratory Therapy Assessment DAILY Comment: Diagnosis: afib with rvr 01/25/19 12:09 Respiratory MDI UD Comment: Diagnosis: afib with rvr Discharge Exam General Appearance: no apparent distress, alert Neurologic Exam: alert, oriented x 3, cooperative, normal mood/affect, nml cerebellar function, sensation nml, No motor deficits Eye Exam: PERRL, EOMI, eyes nml inspection Respiratory Exam: normal breath sounds, lungs clear, No respiratory distress Cardiovascular Exam: regular rate/rhythm, normal heart sounds Gastrointestinal/Abdomen Exam: soft, No tenderness, No mass Extremity Exam: normal inspection, normal range of motion Skin Exam: normal color, warm, dry Final Diagnosis/Problem List - Final Discharge Diagnosis/Problem (1) Atrial fibrillation with RVR Current Visit: Yes Status: Acute Code(s): I48.91 - UNSPECIFIED ATRIAL FIBRILLATION (2) Acute delirium Current Visit: Yes Status: Acute Code(s): R41.0 - DISORIENTATION, UNSPECIFIED (3) Hyperthyroidism Current Visit: Yes Status: Acute Code(s): E05.90 - THYROTOXICOSIS, UNSP WITHOUT THYROTOXIC CRISIS OR STORM (4) Hypertensive urgency Current Visit: Yes Status: Acute Code(s): I16.0 - HYPERTENSIVE URGENCY - Discharge Disposition: Home, Self-Care Condition: Good Prescriptions: New Propranolol HCl 80 mg PO TID #90 tablet Continue Budesonide/Formoterol Fumarate [Symbicort 160-4.5 Mcg Inhaler] 2 puff IH BID Sucralfate [Carafate] 10 ml PO ACHS Rivaroxaban [Xarelto] 20 mg PO EVENING MEAL Omeprazole 20 mg PO BID Lorazepam 0.5 mg [Ativan 0.5 MG] 0.5 mg PO DAILY PRN PRN PRN Reason: Anxiety Hydrocodone/Acetaminophen [Hydrocodone-Acetamin 10-325 mg] 1 tab PO TIDPRN Ferrous Sulfate 1 tab PO DAILY Methimazole 2 tab PO BID Furosemide 20 mg [Lasix 20 mg] 1 tab PO DAILY Discontinued Metoprolol Tartrate 50 mg [Lopressor 50 MG] 1 tab PO BID Additional Instructions: [facility] WILL CALL YOU TO ARRANGE YOUR FIRST VISIT, YOU MAY REACH THEM AT [phone] FOR ANY NEEDS. Follow up with: FAY JOHNSTON MD [Primary Care Provider] - 02/14/19 9:30 am
[2019-02-06] MEDS: PATIENT OWN MEDICATION PO SCH (09:39)
[2019-02-06] MEDS: FEOSOL 325 MG PO SCH (09:40)
[2019-02-06] MEDS: Klor Con 10 MEQ PO SCH (09:40)
[2019-02-06] MEDS: MAG-OX 400 PO SCH (09:40)
[2019-02-06] MEDS: Lidoderm Patch 5% TOP SCH (09:40)
[2019-02-06] MEDS: Protonix 40MG Tablet PO SCH (09:40)
[2019-02-06] MEDS: LASIX 20 MG PO SCH (09:47)
== END 2019-02-06 10:41 | disposition home or self-care (01) | DRG 309 ==
LOC: ED 01:33 → ICU 07:38 → OBSVTOIN 01-25 08:10 → MED SURG 01-28 03:45
PROVIDERS: ADMIT Family Medicine; ATTEND Family Medicine
DX: I48.91 Unspecified atrial fibrillation (principal); N39.0 Urinary tract infection, site not specified; E05.90 Thyrotoxicosis, unspecified without thyrotoxic crisis or storm; I16.0 Hypertensive urgency; R41.82 Altered mental status, unspecified; R41.0 Disorientation, unspecified; R11.2 Nausea with vomiting, unspecified; R10.13 Epigastric pain; R10.12 Left upper quadrant pain; J44.9 Chronic obstructive pulmonary disease, unspecified; R10.11 Right upper quadrant pain; Z79.899 Other long term (current) drug therapy
CPT/HCPCS: 36000; 36415; 71045; 74176; 80048; 80053; 81001; 82150; 83605; 83690; 83735; 84132; 84439; 84443; 84481; 84484; 85025; 87086; 93005; 93268; 94640; 94760; 96360; 96361; 96365; 96368; 96374; 96375; 96376; 99285; G0378; J1160; J1170; J1630; J1720; J1940; J2060; J2405; J3010; J3480; J7609; A9270-GY

== ENCOUNTER 2019-03-11 14:29 | Emergency (ER) | payer MEDICARE | END 2019-03-11 18:57 | disposition home or self-care (01) | LOC: ED 14:29 ==

== ENCOUNTER 2019-06-20 13:20 | Emergency (ER) | payer MEDICARE ==
--- NOTE | 2019-06-20 13:26 | ERPHSYRPT ---
- History of Present Illness Time Seen by Provider: 06/20/19 13:26 Historian: patient, EMS Exam Limitations: clinical condition Physician History: 79 y/o white female presents via ems for genralized abd pain. pt has a h/o chronic abd pain issues. pt seen here on 03/11/19 for same complaint and dx with uti. pt told ems she has not had a bm in a week. pt is on hydrocodone and lorazepam chronically. pt states pain radiates into back. Timing/Duration: today Activities at Onset: none Quality: sharpness, stabbing Abdominal Pain Onset Location: generalized abdomen Pain Radiation: back Severity of Pain-Max: moderate Severity of Pain-Current: moderate Modifying Factors: Improves With: nothing Associated Symptoms: denies symptoms, No nausea, No vomiting Previous symptoms: same symptoms as today Allergies/Adverse Reactions: ceftriaxone sodium [From Rocephin] Allergy (Unknown, Verified 06/20/19 13:30) trouble breathing levofloxacin [From Levaquin] Allergy (Unknown, Verified 06/20/19 13:30) trouble breathing Home Medications: Furosemide 20 mg [Lasix 20 mg] 1 tab PO DAILY 01/24/19 [History] Methimazole 1 tab PO BID 01/24/19 [History] Rivaroxaban [Xarelto] 20 mg PO EVENING MEAL 01/24/19 [History] Docusate Sodium 100 mg [Colace 100 MG] 1 tab PO BID 06/20/19 [History] Hx Tetanus, Diphtheria Vaccination/Date Given: No Hx Influenza Vaccination/Date Given: No Hx Pneumococcal Vaccination/Date Given: No - Review of Systems Constitutional: No Symptoms Eyes: No Symptoms Ears, Nose, & Throat: No Symptoms Respiratory: No Symptoms Cardiac: No Symptoms Abdominal/Gastrointestinal: Abdominal Pain, Constipation, No Nausea, No Vomiting , No Diarrhea Genitourinary Symptoms: No Symptoms, No Dysuria, No Frequency, No Hematuria Musculoskeletal: Back Pain Skin: No Symptoms Neurological: No Symptoms Psychological: No Symptoms Endocrine: No Symptoms Hematologic/Lymphatic: No Symptoms Immunological/Allergic: No Symptoms All Other Systems: Reviewed and Negative - Past Medical History Pertinent Past Medical History: Yes Neurological History: No Pertinent History ENT History: No Pertinent History Cardiac History: Arrhythmia Respiratory History: CHF, COPD Endocrine Medical History: No Pertinent History Musculoskeletal History: No Pertinent History GI Medical History: No Pertinent History History: No Pertinent History Psycho-Social History: No Pertinent History, Depression Female Reproductive Disorders: Cervical Cancer Other Medical History: SHINGLES, AFIB DX IN NOVEMBER - Past Surgical History Past Surgical History: Yes Neuro Surgical History: No Pertinent History Cardiac: Cardiac Catheterization Respiratory: No Pertinent History Gastrointestinal: No Pertinent History Genitourinary: No Pertinent History Musculoskeletal: No Pertinent History Female Surgical History: Hysterectomy, Tubal Ligation Other Surgical History: pacemaker. 2019 EGD colonoscopy - Social History Smoking Status: Current every day smoker How long have you smoked: 60 years Exposure to second hand smoke: Yes Drug Use: none Patient Lives Alone: Yes - Nursing Vital Signs Nursing Vital Signs: Initial Vital Signs Pulse Rate 71 06/20/19 13:32 Respiratory Rate 16 06/20/19 13:32 Blood Pressure 130/75 06/20/19 13:32 O2 Sat by Pulse Oximetry 96 06/20/19 13:32 Pain Scale Pain Intensity 5 - Physical Exam General Appearance: moderate distress, alert, anxiety, thin Eye Exam: PERRL/EOMI, eyes nml inspection Ears, Nose, Throat Exam: normal ENT inspection, moist mucous membranes Neck Exam: normal inspection, non-tender, supple, full range of motion Respiratory Exam: normal breath sounds, lungs clear, airway intact, No chest tenderness, No respiratory distress Cardiovascular Exam: regular rate/rhythm, normal heart sounds, normal peripheral pulses Gastrointestinal/Abdomen Exam: tenderness (generalized), guarding, rebound Pelvic Exam: not done Rectal Exam: not done Back Exam: normal inspection, normal range of motion, No CVA tenderness, No vertebral tenderness Extremity Exam: normal inspection, normal range of motion, pelvis stable Neurologic Exam: alert, oriented x 3, cooperative, target protection specialist II-XII nml as tested Skin Exam: normal color, warm, dry Lymphatic Exam: No adenopathy SpO2 Interpretation: normal O2 Delivery: Room Air - Course Nursing assessment & vital signs reviewed: Yes EKG Interpreted by Me: RATE (71), Right Bundle Branch Block, Other ( indeterminate axis. compared to ekg dated 01/24/19, new axis and atrial pacemaker pacing. ) Ordered Tests: Active Orders 24 hr Category Date Time Status Clean Catch Urine Specimen STAT Care 06/20/19 15:37 Active Gastelum [Catheter-[place] Gastelum] STAT Care 06/20/19 13:47 Active IV Insertion STAT Care 06/20/19 13:33 Active ABDOMEN AND PELVIS W/0 CONTRAS [CT] Stat Exams 06/20/19 13:34 Completed AMYLASE Stat Lab 06/20/19 13:47 Completed CBC W DIFF Stat Lab 06/20/19 13:48 Completed CMP Stat Lab 06/20/19 13:47 Completed LIPASE Stat Lab 06/20/19 13:47 Completed Lactic Acid Stat Lab 06/20/19 13:57 Completed UA W/RFX UR CULTURE Stat Lab 06/20/19 14:00 Completed Urine Triage Profile Stat Lab 06/20/19 15:39 Ordered Medication Summary Generic Name Dose Route Start Last Admin Trade Name Freq PRN Reason Stop Dose Admin Sodium Chloride 1,000 mls @ 100 mls/hr 06/20/19 13:45 06/20/19 14:12 Sodium Chloride 0.9% 1000 Ml IV 07/20/19 13:44 100 mls/hr .Q10H JAZZMINE Administration Discontinued Medications Generic Name Dose Route Start Last Admin Trade Name Freq PRN Reason Stop Dose Admin Dextrose 50 ml 06/20/19 14:36 06/20/19 14:47 D50w 50 Ml Abboject IV 06/20/19 14:37 50 ml STAT ONE Administration Dextrose Confirm 06/20/19 14:46 D50w 50 Ml Abboject Administered 06/20/19 14:47 Dose 50 ml IV .STK-MED ONE Hydromorphone HCl 0.5 mg 06/20/19 13:33 06/20/19 14:13 Hydromorphone 1 Mg/Ml Ampule IV 06/20/19 13:34 0.5 mg STAT ONE Administration Hydromorphone HCl Confirm 06/20/19 14:07 Hydromorphone 1 Mg/Ml Ampule Administered 06/20/19 14:08 Dose 1 mg .ROUTE .STK-MED ONE Ondansetron HCl 4 mg 06/20/19 13:33 06/20/19 14:12 Zofran 4 Mg/2 Ml Vial IV 06/20/19 13:34 4 mg STAT ONE Administration Ondansetron HCl Confirm 06/20/19 14:06 Zofran 4 Mg/2 Ml Vial Administered 06/20/19 14:07 Dose 4 mg .ROUTE .STK-MED ONE Ondansetron HCl Confirm 06/20/19 14:08 Zofran 4 Mg/2 Ml Vial Administered 06/20/19 14:09 Dose 4 mg .ROUTE .STK-MED ONE Potassium Chloride 10 meq 06/20/19 15:36 Klor Con 10 Meq PO 06/20/19 15:37 STAT ONE Lab/Rad Data: Laboratory Result Diagrams 06/20/19 13:48 06/20/19 13:47 Laboratory Results 06/20/19 06/20/19 06/20/19 Range/Units 14:00 13:57 13:48 WBC 7.1 (4.0-10.5) K/mm3 RBC 4.95 (4.1-5.4) M/mm3 Hgb 13.8 (12.0-16.0) gm/dl Hct 41.2 (35-47) % MCV 83.2 (78-100) fl MCH 27.9 (26-32) pg MCHC 33.5 (32-36) g/dl RDW 21.5 H (11.5-14.0) % Plt Count 170 (150-450) K/mm3 MPV 10.6 H (6-9.5) fl Gran % 69.1 H (36.0-66.0) % Eos # (Auto) 0.06 (0-0.5) Absolute Lymphs (auto) 1.67 (1.0-4.6) Absolute Monos (auto) 0.45 (0.0-1.3) Lymphocytes % 23.4 L (24.0-44.0) % Monocytes % 6.3 (0.0-12.0) % Eosinophils % 0.8 (0.00-5.0) % Basophils % 0.4 (0.0-0.4) % Absolute Granulocytes 4.93 (1.4-6.9) Basophils # 0.03 (0-0.4) Sodium (137-145) mmol/L Potassium (3.5-5.1) mmol/L Chloride (98-107) mmol/L Carbon Dioxide (22-30) mmol/L Anion Gap (5-15) MEQ/L BUN (7-17) mg/dL Creatinine (0.52-1.04) mg/dL Estimated GFR ML/MIN Glucose (74-106) mg/dL Lactic Acid 1.4 (0.4-2.0) Calcium (8.4-10.2) mg/dL Total Bilirubin (0.2-1.3) mg/dL AST (14-36) U/L ALT (0-35) U/L Alkaline Phosphatase (38-126) U/L Serum Total Protein (6.3-8.2) g/dL Albumin (3.5-5.0) g/dL Amylase (30-110) U/L Lipase (23-300) U/L Urine Color KAUSHIK (YELLOW) Urine Appearance CLEAR (CLEAR) Urine pH 6.0 (5-6) Ur Specific [place] 1.025 (1.005-1.025) Urine Protein 30 (Negative) Urine Ketones SMALL (NEGATIVE) Urine Blood NEGATIVE (0-5) Braulio/ul Urine Nitrite NEGATIVE (NEGATIVE) Urine Bilirubin NEGATIVE (NEGATIVE) Urine Urobilinogen 2 (0-1) mg/dL Ur Leukocyte Esterase NEGATIVE (NEGATIVE) Urine WBC (Auto) 0-2 (0-5) /HPF Urine RBC (Auto) NONE (0-2) /HPF U Epithel Cells (Auto) NONE (FEW) /HPF Urine Bacteria (Auto) NONE (NEGATIVE) /HPF Urine Culture Reflexed NO (NO) Urine Glucose NEGATIVE (NEGATIVE) mg/dL 06/20/19 Range/Units 13:47 WBC (4.0-10.5) K/mm3 RBC (4.1-5.4) M/mm3 Hgb (12.0-16.0) gm/dl Hct (35-47) % MCV (78-100) fl MCH (26-32) pg MCHC (32-36) g/dl RDW (11.5-14.0) % Plt Count (150-450) K/mm3 MPV (6-9.5) fl Gran % (36.0-66.0) % Eos # (Auto) (0-0.5) Absolute Lymphs (auto) (1.0-4.6) Absolute Monos (auto) (0.0-1.3) Lymphocytes % (24.0-44.0) % Monocytes % (0.0-12.0) % Eosinophils % (0.00-5.0) % Basophils % (0.0-0.4) % Absolute Granulocytes (1.4-6.9) Basophils # (0-0.4) Sodium 143 (137-145) mmol/L Potassium 3.1 L (3.5-5.1) mmol/L Chloride 108 H (98-107) mmol/L Carbon Dioxide 21 L (22-30) mmol/L Anion Gap 17.1 H (5-15) MEQ/L BUN 22 H (7-17) mg/dL Creatinine 1.46 H (0.52-1.04) mg/dL Estimated GFR 36.7 ML/MIN Glucose 65 L (74-106) mg/dL Lactic Acid (0.4-2.0) Calcium 9.4 (8.4-10.2) mg/dL Total Bilirubin 1.50 H (0.2-1.3) mg/dL AST 67 H (14-36) U/L ALT 42 H (0-35) U/L Alkaline Phosphatase 113 (38-126) U/L Serum Total Protein 7.7 (6.3-8.2) g/dL Albumin 4.4 (3.5-5.0) g/dL Amylase 81 (30-110) U/L Lipase 125 (23-300) U/L Urine Color (YELLOW) Urine Appearance (CLEAR) Urine pH (5-6) Ur Specific [place] (1.005-1.025) Urine Protein (Negative) Urine Ketones (NEGATIVE) Urine Blood (0-5) Braulio/ul Urine Nitrite (NEGATIVE) Urine Bilirubin (NEGATIVE) Urine Urobilinogen (0-1) mg/dL Ur Leukocyte Esterase (NEGATIVE) Urine WBC (Auto) (0-5) /HPF Urine RBC (Auto) (0-2) /HPF U Epithel Cells (Auto) (FEW) /HPF Urine Bacteria (Auto) (NEGATIVE) /HPF Urine Culture Reflexed (NO) Urine Glucose (NEGATIVE) mg/dL - Progress Progress: improved, re-examined Progress Note: 06/20/19 15:42 ct abd/pelvis-no acute intraabd process. Counseled pt/family regarding: lab results, diagnosis, need for follow-up, rad results - Departure Departure Disposition: Home Clinical Impression: Hypokalemia, Abdominal pain Condition: Stable Critical Care Time: No Referrals: FAY JOHNSTON MD [Primary Care Provider] - Additional Instructions: drink plenty of fluids. follow up your primary doctor for further management
[2019-06-20] MEDS ORDERED: Zofran 4 MG/2 ML VIAL IV ONE (13:33)
[2019-06-20] MEDS ORDERED: Hydromorphone 1 mg/ml Ampule IV ONE (13:33)
[2019-06-20] MEDS ORDERED: Sodium Chloride 0.9% 1000 ML 1,000 ML IV SCH (13:45)
[2019-06-20 14:02] LABS: Absolute Neutrophil Ct (ANC) 4.93 (1.4-6.9); BASOPHIL % 0.4 % (0.0-0.4); Basophil (Absolute #) 0.03 (0-0.4); Eosinophil % 0.8 % (0.00-5.0); Eosinophil (Absolute #) 0.06 (0-0.5); Hematocrit 41.2 % (35-47); Hemoglobin 13.8 gm/dl (12.0-16.0); Lymphocyte (Absolute #) 1.67 (1.0-4.6); Lymphocytes % 23.4 % (24.0-44.0); Mean Cell Volume 83.2 fl (78-100); Mean Corpuscular Hemoglobin 27.9 pg (26-32); Mean Corpuscular Hgb Concent. 33.5 g/dl (32-36); Mean Platelet Volume 10.6 fl (6-9.5); Monocyte (Absolute #) 0.45 (0.0-1.3); Monocytes % 6.3 % (0.0-12.0); Neutrophil % 69.1 % (36.0-66.0); Platelet Count 170 K/mm3 (150-450); Red Blood Count 4.95 M/mm3 (4.1-5.4); Red Cell Distribution Width 21.5 % (11.5-14.0); White Blood Count 7.1 K/mm3 (4.0-10.5)
[2019-06-20] MEDS ORDERED: Zofran 4 MG/2 ML VIAL ONE ×2 (14:06→14:08)
[2019-06-20] MEDS ORDERED: Hydromorphone 1 mg/ml Ampule ONE (14:07)
[2019-06-20] MEDS ORDERED: Sodium Chloride 0.9% 1000 ML 1,000 ML ONE (14:07)
[2019-06-20 14:09] LABS: Appearance CLEAR (CLEAR); Bilirubin NEGATIVE (NEGATIVE); Blood NEGATIVE Ery/ul (0-5); Glucose NEGATIVE (NEGATIVE); Ketones SMALL (NEGATIVE); Leukocyte Esterase NEGATIVE (NEGATIVE); Nitrite NEGATIVE (NEGATIVE); Protein,Urine Dip 30 (Negative); Specific Gravity 1.025 (1.005-1.025); Urobilinogen 2 mg/dL (0-1); WBC 0-2 /HPF (0-5)
[2019-06-20 14:28] LABS: ALBUMIN 4.4 g/dL (3.5-5.0); ANION GAP 17.1 MEQ/L (5-15); BILIRUBIN,TOTAL 1.5 mg/dL (0.2-1.3); Calcium 9.4 mg/dL (8.4-10.2); Creatinine 1 1.46 mg/dL (0.52-1.04); Potassium 3.1 mmol/L (3.5-5.1); Total Protein 7.7 g/dL (6.3-8.2)
[2019-06-20] MEDS ORDERED: D50W 50 ml Abboject IV ONE ×2 (14:36→14:46)
--- NOTE | 2019-06-20 14:55 | XRAY ---
Indication: Abdominal pain. Multiple contiguous axial images obtained through the abdomen and pelvis without contrast as ordered. Comparison: January 24, 2019. Lung bases again demonstrates fibrosis/scarring without infiltrate or effusion. Heart remains enlarged with partially visualized pacer leads. Noncontrasted stomach and bowel loops remain nonobstructed. Normal appendix. New Gastelum catheter with balloon tip in the urinary bladder. Stable hysterectomy and cholecystectomy. No free fluid/air. Remaining liver, pancreas, spleen, adrenal glands, kidneys, and ureters appear unremarkable for noncontrast exam. Stable scattered aortoiliac calcifications without AAA. Osseous structures again demonstrates osteopenia, mild degenerative changes throughout the spine, T11 vertebral hemangioma, and T12 superior endplate Schmorl node. Impression: 1. New Gastelum catheter in situ. 2. No new or acute intra-abdominal/pelvic abnormalities on this noncontrast exam. 3. Stable cardiomegaly and chronic bony findings. CT DI 3.16
[2019-06-20 16:02] LABS: Amphetamine,Urine NEGATIVE (NEGATIVE); Barbiturate,Urine NEGATIVE (NEGATIVE); Benzodiazepine,Urine NEGATIVE (NEGATIVE); Cocaine,Urine NEGATIVE (NEGATIVE); Methadone,Urine NEGATIVE (NEGATIVE); Opiate,Urine NEGATIVE (NEGATIVE); PCP,Urine NEGATIVE (NEGATIVE); THC,Urine POSITIVE (NEGATIVE)
[2019-06-20] MEDS: Klor Con 10 MEQ PO ONE ×2 (16:17→18:58)
[2019-06-20] MEDS ORDERED: Klor Con 10 MEQ PO ONE (16:17)
[2019-06-20] MEDS ORDERED: Narcan 0.4 MG/ML IV ONE (16:21)
[2019-06-20] MEDS ORDERED: Narcan 0.4 MG/ML ONE (16:23)
[2019-06-20 16:37] VITALS: O2SAT 99
[2019-06-20 17:52] VITALS: BP 113/64; PULSE 74
== END 2019-06-20 18:23 | disposition home or self-care (01) ==
LOC: ED 13:20
DX: E87.6 Hypokalemia (principal); R10.9 Unspecified abdominal pain; Z79.899 Other long term (current) drug therapy; I50.9 Heart failure, unspecified; J44.9 Chronic obstructive pulmonary disease, unspecified; Z80.8 Family history of malignant neoplasm of other organs or systems
CPT/HCPCS: 36000; 36415; 51702; 74176; 80053; 80307; 81001; 82150; 83605; 83690; 85025; 96374; 96375; 99284; J1170; J2310; J2405; A9270-GY

== ENCOUNTER 2019-09-22 11:10 | Inpatient (IN) | payer MEDICARE ==
[2019-09-22 11:24] LABS: VBG BASE EXCESS 2.2 (-2.0-2.0); VBG CARBOXYHEMOGLOBIN 1.2 % T HGB (0.0-6.9); VBG HCO3- 29.1 meq/L (22-28); VBG HEMOGLOBIN 14.5; VBG O2 SATURATION 26.7 (95-100); VBG pH 7.34 (7.32-7.42)
[2019-09-22] MEDS ORDERED: Sodium Chloride 0.9% 1000 ML 0 ML ONE (11:24)
[2019-09-22 11:27] LABS: Absolute Neutrophil Ct (ANC) 6.75 (1.4-6.9); BASOPHIL % 0.2 % (0.0-0.4); Basophil (Absolute #) 0.02 (0-0.4); Eosinophil % 1.5 % (0.00-5.0); Eosinophil (Absolute #) 0.14 (0-0.5); Hematocrit 42.8 % (35-47); Hemoglobin 13.8 gm/dl (12.0-16.0); Lymphocyte (Absolute #) 1.32 (1.0-4.6); Lymphocytes % 14.4 % (24.0-44.0); Mean Cell Volume 88.2 fl (78-100); Mean Corpuscular Hemoglobin 28.5 pg (26-32); Mean Corpuscular Hgb Concent. 32.2 g/dl (32-36); Mean Platelet Volume 10.8 fl (7.5-11.0); Monocyte (Absolute #) 0.95 (0.0-1.3); Monocytes % 10.3 % (0.0-12.0); Neutrophil % 73.6 % (36.0-66.0); Platelet Count 255 K/mm3 (150-450); Red Blood Count 4.85 M/mm3 (4.1-5.4); Red Cell Distribution Width 15.1 % (11.5-14.0); White Blood Count 9.2 K/mm3 (4.0-10.5)
[2019-09-22 11:37] LABS: INR 1.11 (0.8-3.0); PROTIME 12.6 SECONDS (9.95-12.35)
[2019-09-22 11:39] LABS: PTT 38.3 SECONDS (25.3-37.0)
[2019-09-22 11:41] LABS: ALBUMIN 3.7 g/dL (3.5-5.0); ALKALINE PHOSPHATASE 118 U/L (38-126); AMYLASE 54 U/L (30-110); ANION GAP 9.7 MEQ/L (5-15); BLOOD UREA NITROGEN 33 mg/dL (7-17); CHLORIDE 106 mmol/L (98-107); Calcium 10.3 mg/dL (8.4-10.2); Carbon Dioxide 29 mmol/L (22-30); Creatinine 1 0.68 mg/dL (0.52-1.04); Glucose 113 mg/dL (74-106); LIPASE 122 U/L (23-300); MAGNESIUM 1.7 mg/dL (1.6-2.3); SGOT/AST 33 U/L (14-36); SGPT/ALT 25 U/L (0-35); SODIUM 140 mmol/L (137-145); Total Protein 6.9 g/dL (6.3-8.2)
[2019-09-22 11:43] LABS: Erythrocyte Sedimentation Rate 18 mm/hr (0-20)
[2019-09-22] MEDS ORDERED: Sodium Chloride 0.9% 1000 ML 1,000 ML ONE (11:50)
[2019-09-22] MEDS: Sodium Chloride 0.9% 1000 ML 1,000 ML IV SCH ×2 (11:55→21:13)
--- NOTE | 2019-09-22 12:57 | ERPHSYRPT ---
- History of Present Illness Time Seen by Provider: 09/22/19 11:20 Patient Subjective Stated Complaint: EMS states "911 was called for shortness of breath. Pt had shallow respirations and a heart rate of atrial fib rat of 140-190. We started an IV and gave her 2.5 mg versed and cardioverted at 100 J and she went into a Sinus rhythm rate of 88." Triage Nursing Assessment: PT presented slightly confused, alert, skin pwd. Pt mouth is extremely dry. PT is slightly tachypneic. Pt denied any pain, stated it is difficult to breath. adult pads removed form pt due to being folded, pt place on monitor, placed on 4 lpm O2 via NC. Physician History: Is a 79-year-old white female who presents by [facility] ambulance after she called 911 because of shortness of breath all night. EMS found an O2 sat of 80 % she had rales in her bases her blood pressure was low when they got her into the unit she was found to have a rate of 1 [id number] fib she was cardioverted with 100 J after 2.5 mg of Versed and converted to a normal sinus rhythm. She does have a history of a pacemaker and she does have a plaint of "feeling rotten" further history is difficult to obtain Timing/Duration: yesterday Activities at Onset: sleep Quality: dullness Location: substernal Chest Pain Radiation: no radiation Severity of Pain-Max: moderate Severity of Pain-Current: moderate Modifying Factors: Improves With: movement Nitro Today/Relief: no nitro taken today Aspirin Treatment Today: no aspirin today Associated Symptoms: shortness of breath, chest pain Allergies/Adverse Reactions: ceftriaxone sodium [From Rocephin] Allergy (Unknown, Verified 06/20/19 13:30) trouble breathing levofloxacin [From Levaquin] Allergy (Unknown, Verified 06/20/19 13:30) trouble breathing Home Medications: Furosemide 20 mg [Lasix 20 mg] 1 tab PO DAILY 01/24/19 [History] Methimazole 1 tab PO BID 01/24/19 [History] Rivaroxaban [Xarelto] 20 mg PO EVENING MEAL 01/24/19 [History] Docusate Sodium 100 mg [Colace 100 MG] 1 tab PO BID 06/20/19 [History] Hydrocodone Bit/Acetaminophen [Hydrocodon-Acetaminophn 10-325] 1 each PO DAILY 09/22/19 [History] Linaclotide [Linzess] 145 mcg PO DAILY 09/22/19 [History] Lorazepam 0.5 mg [Ativan 0.5 MG] 0.5 mg PO DAILY 09/22/19 [History] Hx Tetanus, Diphtheria Vaccination/Date Given: Yes Hx Influenza Vaccination/Date Given: No Hx Pneumococcal Vaccination/Date Given: No Immunizations Up to Date: Yes - Review of Systems Constitutional: Weakness Eyes: No Symptoms Ears, Nose, & Throat: Other (Dry membranes) Respiratory: Dyspnea, Dyspnea on Exertion (SALINAS) Cardiac: Chest Pain Abdominal/Gastrointestinal: No Abdominal Pain, No Nausea, No Vomiting, No Diarrhea Genitourinary Symptoms: No Dysuria Musculoskeletal: No Back Pain, No Neck Pain Skin: No Rash Neurological: No Dizziness, No Focal Weakness, No Sensory Changes Psychological: No Symptoms Endocrine: No Symptoms - Past Medical History Pertinent Past Medical History: Yes Neurological History: No Pertinent History ENT History: No Pertinent History Cardiac History: Arrhythmia Respiratory History: CHF, COPD Endocrine Medical History: No Pertinent History Musculoskeletal History: No Pertinent History GI Medical History: No Pertinent History History: No Pertinent History Psycho-Social History: No Pertinent History, Depression Female Reproductive Disorders: Cervical Cancer Other Medical History: SHINGLES, AFIB DX IN NOVEMBER - Past Surgical History Past Surgical History: Yes Neuro Surgical History: No Pertinent History Cardiac: Cardiac Catheterization Respiratory: No Pertinent History Gastrointestinal: No Pertinent History Genitourinary: No Pertinent History Musculoskeletal: No Pertinent History Female Surgical History: Hysterectomy, Tubal Ligation Other Surgical History: pacemaker. 2019 EGD colonoscopy - Social History Smoking Status: Current every day smoker How long have you smoked: 0.2 Exposure to second hand smoke: Yes Drug Use: none Patient Lives Alone: Yes - Nursing Vital Signs Nursing Vital Signs: Initial Vital Signs Temperature 98.5 F 09/22/19 11:10 Pulse Rate 82 09/22/19 11:10 Respiratory Rate 26 H 09/22/19 11:10 O2 Sat by Pulse Oximetry 100 09/22/19 11:10 Pain Scale Pain Intensity 0 - Physical Exam General Appearance: moderate distress Eye Exam: PERRL/EOMI, eyes nml inspection Ears, Nose, Throat Exam: dry mucous membranes Neck Exam: normal inspection, non-tender, supple Respiratory Exam: crackles/rales, rhonchi, wheezing Cardiovascular Exam: regular rate/rhythm Gastrointestinal/Abdomen Exam: soft, normal bowel sounds, No tenderness Pelvic Exam: deferred Rectal Exam: deferred Back Exam: normal inspection, No vertebral tenderness Extremity Exam: normal inspection, normal range of motion Neurologic Exam: alert, oriented x 3, cooperative Skin Exam: normal color, warm, dry Lymphatic Exam: No adenopathy SpO2 Interpretation: normal SpO2: 99 O2 Delivery: Nasal Cannula (4L) - Course EKG Interpreted by Me: RATE (84), Sinus Rhythm, NORMAL AXIS, Right Bundle Branch Block, Non-specific ST Changes Ordered Tests: Active Orders 24 hr Category Date Time Status Bridal Consultant STAT Care 09/22/19 11:17 Active Oxygen-ED Only Nasal Cannula 4 lpm Care 09/22/19 11:15 Active Pulse Oximetry (ED) STAT Care 09/22/19 11:15 Active CHEST 1 VIEW (PORTABLE) Stat Exams 09/22/19 11:16 Taken AMYLASE Stat Lab 09/22/19 11:20 Completed CBC W DIFF Stat Lab 09/22/19 11:20 Completed CMP Stat Lab 09/22/19 11:20 Completed CULTURE,URINE Stat Lab 09/22/19 13:06 Received D-DIMER QUANTITATIVE Stat Lab 09/22/19 11:20 Completed Erythrocyte Sedimentation Rate Stat Lab 09/22/19 11:20 Completed LIPASE Stat Lab 09/22/19 11:20 Completed Lactic Acid Stat Lab 09/22/19 11:15 Completed MAGNESIUM Stat Lab 09/22/19 11:20 Completed PROTIME WITH INR Stat Lab 09/22/19 11:20 Completed PTT Stat Lab 09/22/19 11:20 Completed TROPONIN Q3H Lab 09/22/19 11:20 Completed TROPONIN Q3H Lab 09/22/19 14:30 Ordered TROPONIN Q3H Lab 09/22/19 17:30 Ordered TROPONIN Q3H Lab 09/22/19 20:30 Ordered TROPONIN Q3H Lab 09/22/19 23:30 Ordered UA W/RFX UR CULTURE Stat Lab 09/22/19 12:50 Completed VENOUS BLOOD GAS Urgent Lab 09/22/19 11:15 Completed Medication Summary Generic Name Dose Route Start Last Admin Trade Name Freq PRN Reason Stop Dose Admin Sodium Chloride 1,000 mls @ 50 mls/hr 09/22/19 11:15 09/22/19 11:55 Sodium Chloride 0.9% 1000 Ml IV 10/22/19 11:14 50 mls/hr .Q20H JAZZMINE Administration Sodium Chloride 1,000 mls @ 175 mls/hr 09/22/19 13:15 Sodium Chloride 0.9% 1000 Ml IV 10/22/19 13:14 .[id number] [facility] Lab/Rad Data: Laboratory Result Diagrams 09/22/19 11:20 09/22/19 11:20 Laboratory Results 09/22/19 09/22/19 09/22/19 Range/Units 12:50 11:20 11:20 WBC (4.0-10.5) K/mm3 RBC (4.1-5.4) M/mm3 Hgb (12.0-16.0) gm/dl Hct (35-47) % MCV (78-100) fl MCH (26-32) pg MCHC (32-36) g/dl RDW (11.5-14.0) % Plt Count (150-450) K/mm3 MPV (7.5-11.0) fl Gran % (36.0-66.0) % Eos # (Auto) (0-0.5) Absolute Lymphs (auto) (1.0-4.6) Absolute Monos (auto) (0.0-1.3) Lymphocytes % (24.0-44.0) % Monocytes % (0.0-12.0) % Eosinophils % (0.00-5.0) % Basophils % (0.0-0.4) % Absolute Granulocytes (1.4-6.9) Basophils # (0-0.4) ESR (0-20) mm/hr PT 12.6 H (9.95-12.35) SECONDS INR 1.11 (0.8-3.0) APTT 38.3 H (25.3-37.0) SECONDS D-Dimer 795 H* (215-500) ng/mL pO2/FiO2 Ratio % VBG pH (7.32-7.42) VBG pCO2 at Pat Temp (42-55) mm/Hg VBG pO2 at Pat Temp (25-40) mm/Hg VBG HCO3 (22-28) meq/L VBG O2 Sat (Priscilla) (95-100) VBG Base Excess (-2.0-2.0) VBG Hemoglobin VBG Carboxyhemoglobin (0.0-6.9) % T HGB POC Potassium (3.5-5.1) Sodium (137-145) mmol/L Potassium (3.5-5.1) mmol/L Chloride (98-107) mmol/L Carbon Dioxide (22-30) mmol/L Anion Gap (5-15) MEQ/L BUN (7-17) mg/dL Creatinine (0.52-1.04) mg/dL Estimated GFR ML/MIN Glucose (74-106) mg/dL Lactic Acid (0.4-2.0) Calcium (8.4-10.2) mg/dL Magnesium (1.6-2.3) mg/dL Total Bilirubin (0.2-1.3) mg/dL AST (14-36) U/L ALT (0-35) U/L Alkaline Phosphatase (38-126) U/L Troponin I < 0.012 (0.000-0.034) ng/mL Serum Total Protein (6.3-8.2) g/dL Albumin (3.5-5.0) g/dL Amylase (30-110) U/L Lipase (23-300) U/L Urine Color YELLOW (YELLOW) Urine Appearance CLEAR (CLEAR) Urine pH 6.0 (5-6) Ur Specific [place] 1.027 (1.005-1.025) Urine Protein 30 (Negative) Urine Ketones NEGATIVE (NEGATIVE) Urine Blood NEGATIVE (0-5) Braulio/ul Urine Nitrite NEGATIVE (NEGATIVE) Urine Bilirubin NEGATIVE (NEGATIVE) Urine Urobilinogen NEGATIVE (0-1) mg/dL Ur Leukocyte Esterase NEGATIVE (NEGATIVE) Urine WBC (Auto) 0-2 (0-5) /HPF Urine RBC (Auto) 3-5 (0-2) /HPF U Epithel Cells (Auto) NONE (FEW) /HPF Urine Bacteria (Auto) RARE (NEGATIVE) /HPF Urine Mucus (Auto) SLIGHT (NEGATIVE) /HPF Urine Culture Reflexed NO (NO) Urine Glucose NEGATIVE (NEGATIVE) mg/dL 09/22/19 09/22/19 09/22/19 Range/Units 11:20 11:20 11:15 WBC 9.2 (4.0-10.5) K/mm3 RBC 4.85 (4.1-5.4) M/mm3 Hgb 13.8 (12.0-16.0) gm/dl Hct 42.8 (35-47) % MCV 88.2 (78-100) fl MCH 28.5 (26-32) pg MCHC 32.2 (32-36) g/dl RDW 15.1 H (11.5-14.0) % Plt Count 255 (150-450) K/mm3 MPV 10.8 (7.5-11.0) fl Gran % 73.6 H (36.0-66.0) % Eos # (Auto) 0.14 (0-0.5) Absolute Lymphs (auto) 1.32 (1.0-4.6) Absolute Monos (auto) 0.95 (0.0-1.3) Lymphocytes % 14.4 L (24.0-44.0) % Monocytes % 10.3 (0.0-12.0) % Eosinophils % 1.5 (0.00-5.0) % Basophils % 0.2 (0.0-0.4) % Absolute Granulocytes 6.75 (1.4-6.9) Basophils # 0.02 (0-0.4) ESR 18 (0-20) mm/hr PT (9.95-12.35) SECONDS INR (0.8-3.0) APTT (25.3-37.0) SECONDS D-Dimer (215-500) ng/mL pO2/FiO2 Ratio 36.0 % VBG pH 7.34 (7.32-7.42) VBG pCO2 at Pat Temp 54 (42-55) mm/Hg VBG pO2 at Pat Temp 19 L (25-40) mm/Hg VBG HCO3 29.1 H* (22-28) meq/L VBG O2 Sat (Priscilla) 26.7 L (95-100) VBG Base Excess 2.2 H (-2.0-2.0) VBG Hemoglobin 14.5 VBG Carboxyhemoglobin 1.2 (0.0-6.9) % T HGB POC Potassium 4.0 (3.5-5.1) Sodium 140 (137-145) mmol/L Potassium 4.0 (3.5-5.1) mmol/L Chloride 106 (98-107) mmol/L Carbon Dioxide 29 (22-30) mmol/L Anion Gap 9.7 (5-15) MEQ/L BUN 33 H (7-17) mg/dL Creatinine 0.68 (0.52-1.04) mg/dL Estimated GFR > 60.0 ML/MIN Glucose 113 H (74-106) mg/dL Lactic Acid (0.4-2.0) Calcium 10.3 H (8.4-10.2) mg/dL Magnesium 1.7 (1.6-2.3) mg/dL Total Bilirubin 0.70 (0.2-1.3) mg/dL AST 33 (14-36) U/L ALT 25 (0-35) U/L Alkaline Phosphatase 118 (38-126) U/L Troponin I (0.000-0.034) ng/mL Serum Total Protein 6.9 (6.3-8.2) g/dL Albumin 3.7 (3.5-5.0) g/dL Amylase 54 (30-110) U/L Lipase 122 (23-300) U/L Urine Color (YELLOW) Urine Appearance (CLEAR) Urine pH (5-6) Ur Specific [place] (1.005-1.025) Urine Protein (Negative) Urine Ketones (NEGATIVE) Urine Blood (0-5) Braulio/ul Urine Nitrite (NEGATIVE) Urine Bilirubin (NEGATIVE) Urine Urobilinogen (0-1) mg/dL Ur Leukocyte Esterase (NEGATIVE) Urine WBC (Auto) (0-5) /HPF Urine RBC (Auto) (0-2) /HPF U Epithel Cells (Auto) (FEW) /HPF Urine Bacteria (Auto) (NEGATIVE) /HPF Urine Mucus (Auto) (NEGATIVE) /HPF Urine Culture Reflexed (NO) Urine Glucose (NEGATIVE) mg/dL 09/22/19 Range/Units 11:15 WBC (4.0-10.5) K/mm3 RBC (4.1-5.4) M/mm3 Hgb (12.0-16.0) gm/dl Hct (35-47) % MCV (78-100) fl MCH (26-32) pg MCHC (32-36) g/dl RDW (11.5-14.0) % Plt Count (150-450) K/mm3 MPV (7.5-11.0) fl Gran % (36.0-66.0) % Eos # (Auto) (0-0.5) Absolute Lymphs (auto) (1.0-4.6) Absolute Monos (auto) (0.0-1.3) Lymphocytes % (24.0-44.0) % Monocytes % (0.0-12.0) % Eosinophils % (0.00-5.0) % Basophils % (0.0-0.4) % Absolute Granulocytes (1.4-6.9) Basophils # (0-0.4) ESR (0-20) mm/hr PT (9.95-12.35) SECONDS INR (0.8-3.0) APTT (25.3-37.0) SECONDS D-Dimer (215-500) ng/mL pO2/FiO2 Ratio % VBG pH (7.32-7.42) VBG pCO2 at Pat Temp (42-55) mm/Hg VBG pO2 at Pat Temp (25-40) mm/Hg VBG HCO3 (22-28) meq/L VBG O2 Sat (Priscilla) (95-100) VBG Base Excess (-2.0-2.0) VBG Hemoglobin VBG Carboxyhemoglobin (0.0-6.9) % T HGB POC Potassium (3.5-5.1) Sodium (137-145) mmol/L Potassium (3.5-5.1) mmol/L Chloride (98-107) mmol/L Carbon Dioxide (22-30) mmol/L Anion Gap (5-15) MEQ/L BUN (7-17) mg/dL Creatinine (0.52-1.04) mg/dL Estimated GFR ML/MIN Glucose (74-106) mg/dL Lactic Acid 1.6 (0.4-2.0) Calcium (8.4-10.2) mg/dL Magnesium (1.6-2.3) mg/dL Total Bilirubin (0.2-1.3) mg/dL AST (14-36) U/L ALT (0-35) U/L Alkaline Phosphatase (38-126) U/L Troponin I (0.000-0.034) ng/mL Serum Total Protein (6.3-8.2) g/dL Albumin (3.5-5.0) g/dL Amylase (30-110) U/L Lipase (23-300) U/L Urine Color (YELLOW) Urine Appearance (CLEAR) Urine pH (5-6) Ur Specific [place] (1.005-1.025) Urine Protein (Negative) Urine Ketones (NEGATIVE) Urine Blood (0-5) Braulio/ul Urine Nitrite (NEGATIVE) Urine Bilirubin (NEGATIVE) Urine Urobilinogen (0-1) mg/dL Ur Leukocyte Esterase (NEGATIVE) Urine WBC (Auto) (0-5) /HPF Urine RBC (Auto) (0-2) /HPF U Epithel Cells (Auto) (FEW) /HPF Urine Bacteria (Auto) (NEGATIVE) /HPF Urine Mucus (Auto) (NEGATIVE) /HPF Urine Culture Reflexed (NO) Urine Glucose (NEGATIVE) mg/dL - Progress Progress: improved Discussed with Dr.: Francisca Will see patient in: hospital (full admit) - Departure Departure Disposition: In-patient Admission Clinical Impression: Atrial fibrillation status post cardioversion, Altered mental status, Atrial fibrillation with RVR, Elevated blood pressure reading Condition: Serious Critical Care Time: Yes Critical Care Time(excluding separately billable procedures): Critical 30-74 mins Referrals: FAY JOHNSTON MD [Primary Care Provider] -
[2019-09-22 13:01] LABS: Appearance CLEAR (CLEAR); Bacteria RARE /HPF (NEGATIVE); Bilirubin NEGATIVE (NEGATIVE); Blood NEGATIVE Ery/ul (0-5); Glucose NEGATIVE (NEGATIVE); Ketones NEGATIVE (NEGATIVE); Leukocyte Esterase NEGATIVE (NEGATIVE); Mucus SLIGHT /HPF (NEGATIVE); Nitrite NEGATIVE (NEGATIVE); Protein,Urine Dip 30 (Negative); Specific Gravity 1.027 (1.005-1.025); Urobilinogen NEGATIVE mg/dL (0-1); WBC 0-2 /HPF (0-5)
[2019-09-22] MEDS ORDERED: MAALOX ES 30 ML UNIT DOSE PO PRN (13:38)
[2019-09-22] MEDS ORDERED: TYLENOL 325 MG PO PRN (13:38)
[2019-09-22] MEDS ORDERED: Senokot-S Tablet PO PRN (13:38)
[2019-09-22] MEDS ORDERED: Zofran 4 MG/2 ML VIAL IV PRN (13:38)
[2019-09-22] MEDS ORDERED: MILK OF MAGNESIA 30 ML PO PRN (13:38)
[2019-09-22] MEDS ORDERED: Ativan 1 MG ONE ×2 (17:48→23:51)
[2019-09-22] MEDS: XARELTO 10 MG TABLET PO SCH (17:52)
[2019-09-22] MEDS: Ativan 1 MG PO PRN ×2 (17:52→23:51)
[2019-09-22] MEDS: Norco 10/325 MG Tablet PO PRN ×2 (17:53→22:34)
[2019-09-22] MEDS: Advair Hfa 230/21 Mcg COMMON CANISTER IH SCH (20:13)
--- NOTE | 2019-09-22 20:27 | XRAY ---
Indication: Short of breath. Comparison: January 30, 2019. Portable chest remains hyperinflated with azygous lobe. No focal infiltrate, consolidation, or large effusion. Heart remains enlarged less than before with stable left dual-lead pacemaker. Bony thorax intact again with osteopenia, degenerative changes, and scoliosis. Impression: Nonacute chest with chronic features.
[2019-09-22] MEDS: Inderal 20 MG PO SCH (22:34)
[2019-09-23] MEDS: Sodium Chloride 0.9% 1000 ML 1,000 ML IV SCH ×2 (03:09→12:21)
[2019-09-23] MEDS: Norco 10/325 MG Tablet PO PRN (04:17)
[2019-09-23] MEDS ORDERED: Ativan 1 MG ONE (05:05)
[2019-09-23] MEDS ORDERED: Ativan 2 MG/1 ML VIAL IV PRN (05:08)
[2019-09-23 05:49] LABS: Cholesterol 83 mg/dL (50-200); HDL CHOLESTEROL 20 mg/dL (40-60); Risk Ratio 4.1; TRIGLYCERIDE 195 mg/dL (30-150)
[2019-09-23 05:56] LABS: LDL, DIRECT < 30 mg/dL (30-100)
[2019-09-23] MEDS ORDERED: Colace 100 MG PO PRN (06:52)
[2019-09-23] MEDS ORDERED: MEDICATION INTERVENTION MC SCH ×2 (07:15)
--- NOTE | 2019-09-23 08:54 | PCM.HP ---
History of Present Illness - Chief Complaint Chief Complaint: Afib status post cardioversion History of Present Illness: is a 79 year old female who apparently called EMS because she was very short of breath, on arrival she was in a fib with RVR and required cardioversion due to hypotensive/poor perfusion etc. She has a known history of hyperthyroidism and was recently seen by Dr Pereira as her TFT's have been difficult to control, apparently her methimazole was discontinued by him on that visit. her free t4 on 09/17 was over 6 after medication was discontinued. - Review of Systems Constitutional: No Fever, No Chills Respiratory: No Cough, No Short Of Breath Cardiac: No Chest Pain, No Edema, No Syncope Abdominal/Gastrointestinal: No Abdominal Pain, No Nausea, No Vomiting, No Diarrhea Genitourinary Symptoms: No Dysuria All Other Systems: Reviewed and Negative Medications & Allergies Home Medications: Home Medication List Furosemide 20 mg [Lasix 20 mg] 1 tab PO DAILY 01/24/19 [History Confirmed 09/22/19] Methimazole 1 tab PO DAILY 01/24/19 [History Confirmed 09/22/19] Rivaroxaban [Xarelto] 20 mg PO EVENING MEAL 01/24/19 [History Confirmed 09/22/19 ] Propranolol HCl 80 mg PO TID #90 tablet 02/06/19 [Rx Confirmed 09/22/19] Docusate Sodium 100 mg [Colace 100 MG] 1 tab PO BID PRN PRN 06/20/19 [ History Confirmed 09/22/19] Budesonide/Formoterol Fumarate [Budesonide-Formoterol 160-4.5] 1 puff IH DAILY 09/22/19 [History Confirmed 09/22/19] Hydrocodone Bit/Acetaminophen [Hydrocodon-Acetaminophn 10-325] 1 each PO TIDPRN 09/22/19 [History Confirmed 09/22/19] Linaclotide [Linzess] 145 mcg PO DAILY 09/22/19 [History Confirmed 09/22/19] Lorazepam 0.5 mg [Ativan 0.5 MG] 0.5 mg PO BIDPRN PRN 09/22/19 [History Confirmed 09/22/19] Allergies/Adverse Reactions: Allergies Allergy/AdvReac Type Severity Reaction Status Date / Time ceftriaxone sodium Allergy Unknown Rash Verified 09/22/19 14:45 [From Rocephin] levofloxacin [From Levaquin] Allergy Unknown Rash Verified 09/22/19 14:45 - Past Medical History Past Medical History: Yes Neurological History: No Pertinent History ENT History: No Pertinent History Cardiac History: Arrhythmia Respiratory History: CHF, COPD Endocrine Medical History: No Pertinent History Musculoskelatal History: No Pertinent History GI Medical History: No Pertinent History History: No Pertinent History Pyscho-Social History: No Pertinent History, Depression Reproductive Disorders: Cervical Cancer Comment: SHINGLES, AFIB DX IN NOVEMBER - Female History Are you now?: No - Past Surgical History Past Surgical History: Yes Neuro Surgical History: No Pertinent History Cardiac History: Cardiac Catheterization Respiratory Surgery: No Pertinent History GI Surgical History: No Pertinent History Genitourinary Surgical Hx: No Pertinent History Musculskeletal Surgical Hx: No Pertinent History Female Surgical History: Hysterectomy, Tubal Ligation Other Surgical History: pacemaker. 2019 EGD colonoscopy - Social History Smoking Status: Current every day smoker How long have you smoked: 0.2 Exposure to second hand smoke: Yes Alcohol: None Drug Use: none - Physical Exam Vital Signs: Vital Signs - 24 hr Temp Pulse Resp BP Pulse Ox 09/23/19 08:00 98.5 F 73 23 130/54 98 09/23/19 04:00 98.4 F 88 21 134/56 96 09/22/19 23:09 95 H 09/22/19 23:05 98.1 F 95 H 25 H 154/63 96 09/22/19 20:15 96 H 20 96 09/22/19 20:00 97.9 F 90 25 H 148/47 98 09/22/19 17:03 100 H 20 100 09/22/19 16:00 98.2 F 101 H 20 143/68 92 L 09/22/19 15:00 99 H 97 09/22/19 14:30 98.5 F 99 H 21 121/50 97 09/22/19 14:00 98.5 F 99 H 21 121/50 97 09/22/19 13:37 99 09/22/19 12:50 83 21 108/94 96 09/22/19 12:10 99 09/22/19 11:10 98.5 F 82 26 H 99 Oxygen-Last 24 hours Oxygen Flowrate (L/min)-RT 6 Oxygen Flowrate (L/min)-RT 6 General Appearance: mild distress Neurologic Exam: alert, No oriented x 3 Respiratory Exam: normal breath sounds, lungs clear, No respiratory distress Cardiovascular Exam: regular rate/rhythm, normal heart sounds, normal peripheral pulses Gastrointestinal/Abdomen Exam: soft, normal bowel sounds, No tenderness, No mass Extremity Exam: normal inspection, normal range of motion, pelvis stable Results - Labs Lab/Micro Results: Lab Results-Last 24 Hours 09/22/19 09/22/19 09/22/19 Range/Units 11:15 11:15 11:20 WBC 9.2 (4.0-10.5) K/mm3 RBC 4.85 (4.1-5.4) M/mm3 Hgb 13.8 (12.0-16.0) gm/dl Hct 42.8 (35-47) % MCV 88.2 (78-100) fl MCH 28.5 (26-32) pg MCHC 32.2 (32-36) g/dl RDW 15.1 H (11.5-14.0) % Plt Count 255 (150-450) K/mm3 MPV 10.8 (7.5-11.0) fl Gran % 73.6 H (36.0-66.0) % Eos # (Auto) 0.14 (0-0.5) Absolute Lymphs (auto) 1.32 (1.0-4.6) Absolute Monos (auto) 0.95 (0.0-1.3) Lymphocytes % 14.4 L (24.0-44.0) % Monocytes % 10.3 (0.0-12.0) % Eosinophils % 1.5 (0.00-5.0) % Basophils % 0.2 (0.0-0.4) % Absolute Granulocytes 6.75 (1.4-6.9) Basophils # 0.02 (0-0.4) ESR 18 (0-20) mm/hr PT (9.95-12.35) SECONDS INR (0.8-3.0) APTT (25.3-37.0) SECONDS D-Dimer (215-500) ng/mL pO2/FiO2 Ratio 36.0 % VBG pH 7.34 (7.32-7.42) VBG pCO2 at Pat Temp 54 (42-55) mm/Hg VBG pO2 at Pat Temp 19 L (25-40) mm/Hg VBG HCO3 29.1 H* (22-28) meq/L VBG O2 Sat (Priscilla) 26.7 L (95-100) VBG Base Excess 2.2 H (-2.0-2.0) VBG Hemoglobin 14.5 VBG Carboxyhemoglobin 1.2 (0.0-6.9) % T HGB POC Potassium 4.0 (3.5-5.1) Sodium (137-145) mmol/L Potassium (3.5-5.1) mmol/L Chloride (98-107) mmol/L Carbon Dioxide (22-30) mmol/L Anion Gap (5-15) MEQ/L BUN (7-17) mg/dL Creatinine (0.52-1.04) mg/dL Estimated GFR ML/MIN Glucose (74-106) mg/dL Lactic Acid 1.6 (0.4-2.0) Calcium (8.4-10.2) mg/dL Magnesium (1.6-2.3) mg/dL Total Bilirubin (0.2-1.3) mg/dL AST (14-36) U/L ALT (0-35) U/L Alkaline Phosphatase (38-126) U/L Troponin I (0.000-0.034) ng/mL Serum Total Protein (6.3-8.2) g/dL Albumin (3.5-5.0) g/dL Triglycerides (30-150) mg/dL Cholesterol (50-200) mg/dL LDL Cholesterol (30-100) mg/dL HDL Cholesterol (40-60) mg/dL Heart Disease Risk Ratio Amylase (30-110) U/L Lipase (23-300) U/L Urine Color (YELLOW) Urine Appearance (CLEAR) Urine pH (5-6) Ur Specific [place] (1.005-1.025) Urine Protein (Negative) Urine Ketones (NEGATIVE) Urine Blood (0-5) Braulio/ul Urine Nitrite (NEGATIVE) Urine Bilirubin (NEGATIVE) Urine Urobilinogen (0-1) mg/dL Ur Leukocyte Esterase (NEGATIVE) Urine WBC (Auto) (0-5) /HPF Urine RBC (Auto) (0-2) /HPF U Epithel Cells (Auto) (FEW) /HPF Urine Bacteria (Auto) (NEGATIVE) /HPF Urine Mucus (Auto) (NEGATIVE) /HPF Urine Culture Reflexed (NO) Urine Glucose (NEGATIVE) mg/dL 09/22/19 09/22/19 09/22/19 Range/Units 11:20 11:20 11:20 WBC (4.0-10.5) K/mm3 RBC (4.1-5.4) M/mm3 Hgb (12.0-16.0) gm/dl Hct (35-47) % MCV (78-100) fl MCH (26-32) pg MCHC (32-36) g/dl RDW (11.5-14.0) % Plt Count (150-450) K/mm3 MPV (7.5-11.0) fl Gran % (36.0-66.0) % Eos # (Auto) (0-0.5) Absolute Lymphs (auto) (1.0-4.6) Absolute Monos (auto) (0.0-1.3) Lymphocytes % (24.0-44.0) % Monocytes % (0.0-12.0) % Eosinophils % (0.00-5.0) % Basophils % (0.0-0.4) % Absolute Granulocytes (1.4-6.9) Basophils # (0-0.4) ESR (0-20) mm/hr PT 12.6 H (9.95-12.35) SECONDS INR 1.11 (0.8-3.0) APTT 38.3 H (25.3-37.0) SECONDS D-Dimer 795 H* (215-500) ng/mL pO2/FiO2 Ratio % VBG pH (7.32-7.42) VBG pCO2 at Pat Temp (42-55) mm/Hg VBG pO2 at Pat Temp (25-40) mm/Hg VBG HCO3 (22-28) meq/L VBG O2 Sat (Priscilla) (95-100) VBG Base Excess (-2.0-2.0) VBG Hemoglobin VBG Carboxyhemoglobin (0.0-6.9) % T HGB POC Potassium (3.5-5.1) Sodium 140 (137-145) mmol/L Potassium 4.0 (3.5-5.1) mmol/L Chloride 106 (98-107) mmol/L Carbon Dioxide 29 (22-30) mmol/L Anion Gap 9.7 (5-15) MEQ/L BUN 33 H (7-17) mg/dL Creatinine 0.68 (0.52-1.04) mg/dL Estimated GFR > 60.0 ML/MIN Glucose 113 H (74-106) mg/dL Lactic Acid (0.4-2.0) Calcium 10.3 H (8.4-10.2) mg/dL Magnesium 1.7 (1.6-2.3) mg/dL Total Bilirubin 0.70 (0.2-1.3) mg/dL AST 33 (14-36) U/L ALT 25 (0-35) U/L Alkaline Phosphatase 118 (38-126) U/L Troponin I < 0.012 (0.000-0.034) ng/mL Serum Total Protein 6.9 (6.3-8.2) g/dL Albumin 3.7 (3.5-5.0) g/dL Triglycerides (30-150) mg/dL Cholesterol (50-200) mg/dL LDL Cholesterol (30-100) mg/dL HDL Cholesterol (40-60) mg/dL Heart Disease Risk Ratio Amylase 54 (30-110) U/L Lipase 122 (23-300) U/L Urine Color (YELLOW) Urine Appearance (CLEAR) Urine pH (5-6) Ur Specific [place] (1.005-1.025) Urine Protein (Negative) Urine Ketones (NEGATIVE) Urine Blood (0-5) Braulio/ul Urine Nitrite (NEGATIVE) Urine Bilirubin (NEGATIVE) Urine Urobilinogen (0-1) mg/dL Ur Leukocyte Esterase (NEGATIVE) Urine WBC (Auto) (0-5) /HPF Urine RBC (Auto) (0-2) /HPF U Epithel Cells (Auto) (FEW) /HPF Urine Bacteria (Auto) (NEGATIVE) /HPF Urine Mucus (Auto) (NEGATIVE) /HPF Urine Culture Reflexed (NO) Urine Glucose (NEGATIVE) mg/dL 09/22/19 09/22/19 09/22/19 Range/Units 12:50 14:39 17:34 WBC (4.0-10.5) K/mm3 RBC (4.1-5.4) M/mm3 Hgb (12.0-16.0) gm/dl Hct (35-47) % MCV (78-100) fl MCH (26-32) pg MCHC (32-36) g/dl RDW (11.5-14.0) % Plt Count (150-450) K/mm3 MPV (7.5-11.0) fl Gran % (36.0-66.0) % Eos # (Auto) (0-0.5) Absolute Lymphs (auto) (1.0-4.6) Absolute Monos (auto) (0.0-1.3) Lymphocytes % (24.0-44.0) % Monocytes % (0.0-12.0) % Eosinophils % (0.00-5.0) % Basophils % (0.0-0.4) % Absolute Granulocytes (1.4-6.9) Basophils # (0-0.4) ESR (0-20) mm/hr PT (9.95-12.35) SECONDS INR (0.8-3.0) APTT (25.3-37.0) SECONDS D-Dimer (215-500) ng/mL pO2/FiO2 Ratio % VBG pH (7.32-7.42) VBG pCO2 at Pat Temp (42-55) mm/Hg VBG pO2 at Pat Temp (25-40) mm/Hg VBG HCO3 (22-28) meq/L VBG O2 Sat (Priscilla) (95-100) VBG Base Excess (-2.0-2.0) VBG Hemoglobin VBG Carboxyhemoglobin (0.0-6.9) % T HGB POC Potassium (3.5-5.1) Sodium (137-145) mmol/L Potassium (3.5-5.1) mmol/L Chloride (98-107) mmol/L Carbon Dioxide (22-30) mmol/L Anion Gap (5-15) MEQ/L BUN (7-17) mg/dL Creatinine (0.52-1.04) mg/dL Estimated GFR ML/MIN Glucose (74-106) mg/dL Lactic Acid (0.4-2.0) Calcium (8.4-10.2) mg/dL Magnesium (1.6-2.3) mg/dL Total Bilirubin (0.2-1.3) mg/dL AST (14-36) U/L ALT (0-35) U/L Alkaline Phosphatase (38-126) U/L Troponin I 0.023 0.046 H* (0.000-0.034) ng/mL Serum Total Protein (6.3-8.2) g/dL Albumin (3.5-5.0) g/dL Triglycerides (30-150) mg/dL Cholesterol (50-200) mg/dL LDL Cholesterol (30-100) mg/dL HDL Cholesterol (40-60) mg/dL Heart Disease Risk Ratio Amylase (30-110) U/L Lipase (23-300) U/L Urine Color YELLOW (YELLOW) Urine Appearance CLEAR (CLEAR) Urine pH 6.0 (5-6) Ur Specific [place] 1.027 (1.005-1.025) Urine Protein 30 (Negative) Urine Ketones NEGATIVE (NEGATIVE) Urine Blood NEGATIVE (0-5) Braulio/ul Urine Nitrite NEGATIVE (NEGATIVE) Urine Bilirubin NEGATIVE (NEGATIVE) Urine Urobilinogen NEGATIVE (0-1) mg/dL Ur Leukocyte Esterase NEGATIVE (NEGATIVE) Urine WBC (Auto) 0-2 (0-5) /HPF Urine RBC (Auto) 3-5 (0-2) /HPF U Epithel Cells (Auto) NONE (FEW) /HPF Urine Bacteria (Auto) RARE (NEGATIVE) /HPF Urine Mucus (Auto) SLIGHT (NEGATIVE) /HPF Urine Culture Reflexed NO (NO) Urine Glucose NEGATIVE (NEGATIVE) mg/dL 09/22/19 09/22/19 09/23/19 Range/Units 20:35 23:49 04:21 WBC (4.0-10.5) K/mm3 RBC (4.1-5.4) M/mm3 Hgb (12.0-16.0) gm/dl Hct (35-47) % MCV (78-100) fl MCH (26-32) pg MCHC (32-36) g/dl RDW (11.5-14.0) % Plt Count (150-450) K/mm3 MPV (7.5-11.0) fl Gran % (36.0-66.0) % Eos # (Auto) (0-0.5) Absolute Lymphs (auto) (1.0-4.6) Absolute Monos (auto) (0.0-1.3) Lymphocytes % (24.0-44.0) % Monocytes % (0.0-12.0) % Eosinophils % (0.00-5.0) % Basophils % (0.0-0.4) % Absolute Granulocytes (1.4-6.9) Basophils # (0-0.4) ESR (0-20) mm/hr PT (9.95-12.35) SECONDS INR (0.8-3.0) APTT (25.3-37.0) SECONDS D-Dimer (215-500) ng/mL pO2/FiO2 Ratio % VBG pH (7.32-7.42) VBG pCO2 at Pat Temp (42-55) mm/Hg VBG pO2 at Pat Temp (25-40) mm/Hg VBG HCO3 (22-28) meq/L VBG O2 Sat (Priscilla) (95-100) VBG Base Excess (-2.0-2.0) VBG Hemoglobin VBG Carboxyhemoglobin (0.0-6.9) % T HGB POC Potassium (3.5-5.1) Sodium (137-145) mmol/L Potassium (3.5-5.1) mmol/L Chloride (98-107) mmol/L Carbon Dioxide (22-30) mmol/L Anion Gap (5-15) MEQ/L BUN (7-17) mg/dL Creatinine (0.52-1.04) mg/dL Estimated GFR ML/MIN Glucose (74-106) mg/dL Lactic Acid (0.4-2.0) Calcium (8.4-10.2) mg/dL Magnesium (1.6-2.3) mg/dL Total Bilirubin (0.2-1.3) mg/dL AST (14-36) U/L ALT (0-35) U/L Alkaline Phosphatase (38-126) U/L Troponin I 0.062 H* 0.056 H* (0.000-0.034) ng/mL Serum Total Protein (6.3-8.2) g/dL Albumin (3.5-5.0) g/dL Triglycerides 195 H (30-150) mg/dL Cholesterol 83 (50-200) mg/dL LDL Cholesterol < 30 L (30-100) mg/dL HDL Cholesterol 20 L (40-60) mg/dL Heart Disease Risk Ratio 4.1 Amylase (30-110) U/L Lipase (23-300) U/L Urine Color (YELLOW) Urine Appearance (CLEAR) Urine pH (5-6) Ur Specific [place] (1.005-1.025) Urine Protein (Negative) Urine Ketones (NEGATIVE) Urine Blood (0-5) Braulio/ul Urine Nitrite (NEGATIVE) Urine Bilirubin (NEGATIVE) Urine Urobilinogen (0-1) mg/dL Ur Leukocyte Esterase (NEGATIVE) Urine WBC (Auto) (0-5) /HPF Urine RBC (Auto) (0-2) /HPF U Epithel Cells (Auto) (FEW) /HPF Urine Bacteria (Auto) (NEGATIVE) /HPF Urine Mucus (Auto) (NEGATIVE) /HPF Urine Culture Reflexed (NO) Urine Glucose (NEGATIVE) mg/dL Microbiology 09/22/19 13:06 Urine Culture - Preliminary Catherized NO GROWTH TO DATE - Radiology Impressions Radiology Exams & Impressions: Radiology Procedures Category Date Time Status CHEST 1 VIEW (PORTABLE) Stat Exams 09/22/19 11:16 Completed - Other Procedures and Tests Respiratory Therapy 09/22/19 14:05 Oxygen Oxymask LPM 4 lpm 09/22/19 17:03 Respiratory Therapy Assessment DAILY 09/24/19 05:00 EKG ONCE 09/25/19 05:00 EKG ONCE Assessment/Plan (1) Atrial fibrillation status post cardioversion Current Visit: Yes Status: Acute Assessment & Plan: currently sinus, TFT's reviewed from 09/17, will start on PTU and idoine at this time. Code(s): I48.91 - UNSPECIFIED ATRIAL FIBRILLATION (2) Hyperthyroidism with storm Current Visit: Yes Status: Acute Assessment & Plan: started on PTU and iodine solution, will follow closely Code(s): E05.91 - THYROTOXICOSIS, UNSPECIFIED WITH THYROTOXIC CRISIS OR STORM (3) Elevated troponin Current Visit: Yes Status: Acute Assessment & Plan: likely secondary to strain from thyroid storm and cardioversion etc, will consult Dr Cross, continue propranolol Code(s): R79.89 - OTHER SPECIFIED ABNORMAL FINDINGS OF BLOOD CHEMISTRY (4) Acute delirium Current Visit: No Status: Acute Code(s): R41.0 - DISORIENTATION, UNSPECIFIED
[2019-09-23] MEDS: PTU 50MG PO SCH ×3 (09:19→21:07)
[2019-09-23] MEDS ORDERED: NON-FORMULARY ITEM (Linaclotide [Linzess] 145 MCG) PO SCH (10:00)
[2019-09-23] MEDS ORDERED: METHIMAZOLE PO SCH (10:00)
[2019-09-23] MEDS: Lugol's Solution PO SCH ×3 (11:13→21:06)
[2019-09-23] MEDS: LASIX 20 MG PO SCH ×2 (11:26→14:36)
[2019-09-23] MEDS: Ativan 2 MG/1 ML VIAL IV PRN ×3 (11:28→21:58)
[2019-09-23] MEDS: Inderal 20 MG PO SCH ×4 (11:31→21:07)
[2019-09-23] MEDS: Advair Hfa 230/21 Mcg COMMON CANISTER IH SCH ×2 (12:20→18:36)
[2019-09-23] MEDS ORDERED: Haldol 5 MG IM ONE (14:12)
[2019-09-23] MEDS ORDERED: Haldol 5 MG ONE (14:13)
[2019-09-23] MEDS: XARELTO 10 MG TABLET PO SCH (17:05)
[2019-09-23 17:37] LABS: A-aADO2 65; ABG HEMOGLOBIN 12.9; ABG POTASSIUM 4.1 (3.5-5.1); ABG SITE LEFT BRACHIAL; ARTERIAL BLD GAS O2 SATURATION 97.5 % (95-100); ARTERIAL BLOOD GAS FIO2 28 %; ARTERIAL BLOOD GAS PCO2 38 mmHg (35-45); ARTERIAL BLOOD GAS PO2 87 mmHg (75-100); ARTERIAL BLOOD GAS pH 7.32 (7.35-7.45); CARBOXYHEMOGLOBIN 1.3 % THgb (0.0-6.9); HCO3- 19.6 (22-28); HGB O2 SAT 95.4 g/dF (94-100); Methhemoglobin 0.8 % (1.4-1.5); paO2 pAO1 0.57
[2019-09-23] MEDS ORDERED: DUONEB 0.5-3 MG/3 ml Neb IH ONE (17:41)
[2019-09-23] MEDS: DUONEB 0.5-3 MG/3 ml Neb IH SCH (17:48)
[2019-09-23] MEDS ORDERED: Lasix 20 MG/2 ML IV ONE (18:00)
[2019-09-23] MEDS ORDERED: CARDIZEM DRIP 100 MG/100 ML D5W 100 ML IV ONE (18:20)
[2019-09-23] MEDS ORDERED: Cardizem IV 50 MG/10 ML IV ONE (18:41)
[2019-09-23] MEDS: CARDIZEM DRIP 100 MG/100 ML D5W 100 ML IV PRN (18:45)
[2019-09-24] MEDS: Haldol 5 MG IM PRN ×2 (00:10→04:32)
[2019-09-24] MEDS ORDERED: DUONEB 0.5-3 MG/3 ml Neb IH PRN (00:36)
[2019-09-24] MEDS: PTU 50MG PO SCH ×3 (00:39→08:16)
[2019-09-24] MEDS: CARDIZEM DRIP 100 MG/100 ML D5W 100 ML IV PRN ×2 (01:26→07:51)
[2019-09-24] MEDS ORDERED: Lasix 20 MG/2 ML ONE (01:59)
[2019-09-24] MEDS ORDERED: Lasix 20 MG/2 ML IV ONE ×2 (02:00→17:45)
[2019-09-24] MEDS: Ativan 2 MG/1 ML VIAL IV PRN ×3 (02:11→10:38)
[2019-09-24 04:55] LABS: Absolute Neutrophil Ct (ANC) 12.81 (1.4-6.9); BASOPHIL % 0.1 % (0.0-0.4); Basophil (Absolute #) 0.02 (0-0.4); Eosinophil % 0.1 % (0.00-5.0); Eosinophil (Absolute #) 0.01 (0-0.5); Hematocrit 39.3 % (35-47); Hemoglobin 12.7 gm/dl (12.0-16.0); Lymphocyte (Absolute #) 0.29 (1.0-4.6); Lymphocytes % 2.1 % (24.0-44.0); Mean Cell Volume 87.1 fl (78-100); Mean Corpuscular Hemoglobin 28.2 pg (26-32); Mean Corpuscular Hgb Concent. 32.3 g/dl (32-36); Mean Platelet Volume 11.7 fl (7.5-11.0); Monocyte (Absolute #) 0.89 (0.0-1.3); Monocytes % 6.3 % (0.0-12.0); Neutrophil % 91.4 % (36.0-66.0); Platelet Count 225 K/mm3 (150-450); Red Blood Count 4.51 M/mm3 (4.1-5.4); Red Cell Distribution Width 14.9 % (11.5-14.0)
[2019-09-24] MEDS: DUONEB 0.5-3 MG/3 ml Neb IH SCH (05:14)
[2019-09-24 05:43] LABS: ALBUMIN 3.5 g/dL (3.5-5.0); ALKALINE PHOSPHATASE 112 U/L (38-126); ANION GAP 13.8 MEQ/L (5-15); BLOOD UREA NITROGEN 26 mg/dL (7-17); CHLORIDE 107 mmol/L (98-107); Calcium 9.6 mg/dL (8.4-10.2); Carbon Dioxide 24 mmol/L (22-30); Creatinine 1 0.59 mg/dL (0.52-1.04); Glucose 171 mg/dL (74-106); MAGNESIUM 1.2 mg/dL (1.6-2.3); SGOT/AST 50 U/L (14-36); SGPT/ALT 38 U/L (0-35); SODIUM 142 mmol/L (137-145); TSH, 3RD Generation < 0.015 mIU/L (0.47-4.68); Total Protein 6.5 g/dL (6.3-8.2)
[2019-09-24] MEDS: Advair Hfa 230/21 Mcg COMMON CANISTER IH SCH (05:50)
[2019-09-24 06:18] LABS: Potassium 2.6 mmol/L (3.5-5.1); TROPONIN 0.093 ng/mL (0.000-0.034)
[2019-09-24 06:31] LABS: Slide Review 1 YES
[2019-09-24] MEDS: Magnesium 1 Gm / 100 Ml D5W*** 100 ML IV SCH ×2 (06:35→07:25)
[2019-09-24] MEDS: POTASSIUM CHLORIDE 20 mEq IN WATER 100ML 20 MEQ/100 ML BAG IV SCH ×2 (06:35→09:07)
[2019-09-24] MEDS: Sodium Chloride 0.9% 1000 ML 1,000 ML IV SCH (06:38)
[2019-09-24 07:47] VITALS: BP 107/49; O2SAT 93
[2019-09-24 08:08] VITALS: PULSE 115
--- NOTE | 2019-09-24 08:53 | PCM.NOTE ---
Date and Time: 09/24/19 0848 Subjective Assessment: Pt is back in afib with RVR. She is not responding verbally. Has not been able to take PTU since 4 pm yesterday, and last iodine dose was at 2200 last night. She required haldol yesterday due to altered mental status. - Review of Systems All Other Systems: Unable due to condition Objective Exam General Appearance: moderate distress (moves constantly on the bed, reaching for things, moaning, tachypneic) Neurologic Exam: agitation, other (eyes closed, not responding to examiner) Skin Exam: normal color, warm, dry, No rash Wound Assessment: Skin/Wound Assessment Wound/Incision Assessment Start: 09/24/19 08: 13 Text: Status: Active Freq: Q6H Protocol: Document 09/24/19 08:13 [facility] (Rec: 09/24/19 08:13 [id number] Wound Photo Photo Taken No Respiratory Exam: normal breath sounds, lungs clear, other (tachypnea), No crackles/rales, No rhonchi, No wheezing Cardiovascular Exam: normal heart sounds, tachycardia, No murmur Gastrointestinal/Abdomen Exam: soft, normal bowel sounds, tenderness (moans diffusely with palpation), No distention, No mass Extremity Exam: No pedal edema, No swelling Back Exam: normal inspection, No rash OBJECTIVE DATA Vital Signs: Vital Signs - 24 hr Temp Pulse Resp BP BP Pulse Ox 09/24/19 07:54 115 H 09/24/19 07:44 98.3 F 120 H 48 H 107/49 93 L 09/24/19 07:33 120 H 32 H 94 L 09/24/19 06:58 104 H 28 H 139/69 09/24/19 06:00 117 H 30 H 09/24/19 05:14 118 H 42 H 94 L 09/24/19 05:00 120 H 24 128/65 09/24/19 04:00 97.1 F 118 H 40 H 141/58 141/58 94 L 09/24/19 03:00 102 H 28 H 104/41 09/24/19 02:00 111 H 28 H 147/89 09/24/19 01:00 117 H 30 H 103/47 09/24/19 00:37 117 H 40 H 95 03/10/20 00:01 108 H 09/24/19 00:00 98.7 F 124 H 30 H 164/98 112/60 99 09/23/19 22:59 128 H 28 H 112/60 09/23/19 22:00 118 H 26 H 133/50 09/23/19 21:00 130 H 28 H 116/53 09/23/19 20:00 136 H 23 137/97 09/23/19 18:45 145 H 26 H 112/57 09/23/19 18:36 98 09/23/19 18:00 76 23 128/48 99 09/23/19 17:45 79 22 98 09/23/19 16:00 72 09/23/19 14:28 80 09/23/19 14:03 143/60 09/23/19 12:17 88 20 97 09/23/19 12:00 96.6 F 86 29 H 162/76 99 Oxygen-Last 24 hours Oxygen Flowrate (L/min)-RT 3 Pain Assessment - Last Documented Pain Intensity 2 Pain Scale Used FLACC Intake and Output: Intake & Output 09/21/19 09/22/19 09/23/19 09/24/19 10:59 11:59 11:59 11:59 Intake Total 2513 1613 Output Total 300 750 Balance 2213 863 Weight 51.2 kg 48.5 kg Lab Results: Lab Results-Last 24 Hours 09/23/19 09/23/19 09/23/19 Range/Units 05:00 05:00 17:30 WBC (4.0-10.5) K/mm3 RBC (4.1-5.4) M/mm3 Hgb (12.0-16.0) gm/dl Hct (35-47) % MCV (78-100) fl MCH (26-32) pg MCHC (32-36) g/dl RDW (11.5-14.0) % Plt Count (150-450) K/mm3 MPV (7.5-11.0) fl Gran % (36.0-66.0) % Eos # (Auto) (0-0.5) Absolute Lymphs (auto) (1.0-4.6) Absolute Monos (auto) (0.0-1.3) Lymphocytes % (24.0-44.0) % Monocytes % (0.0-12.0) % Eosinophils % (0.00-5.0) % Basophils % (0.0-0.4) % Absolute Granulocytes (1.4-6.9) Basophils # (0-0.4) Puncture Site LEFT BRACHIAL pCO2 38 (35-45) mmHg pO2 87 (75-100) mmHg Base Excess -6.0 L (-2.0-2.0) O2 Saturation 95.4 (94-100) g/dF ABG pH 7.32 L (7.35-7.45) ABG HCO3 19.6 L (22-28) ABG O2 Sat (Measured) 97.5 (95-100) % Joselito Test NOT APPLICABLE A-a Gradient 65 a/A Ratio 0.57 Hemoglobin 12.9 Carboxyhemoglobin 1.3 (0.0-6.9) % THgb Methemoglobin 0.8 L (1.4-1.5) % Potassium 4.1 (3.5-5.1) Temperature 37.0 C POC O2 Flow Rate 28 % Sodium (137-145) mmol/L Chloride (98-107) mmol/L Carbon Dioxide (22-30) mmol/L Anion Gap (5-15) MEQ/L BUN (7-17) mg/dL Creatinine (0.52-1.04) mg/dL Estimated GFR ML/MIN Glucose (74-106) mg/dL Calcium (8.4-10.2) mg/dL Magnesium (1.6-2.3) mg/dL Total Bilirubin (0.2-1.3) mg/dL AST (14-36) U/L ALT (0-35) U/L Alkaline Phosphatase (38-126) U/L Troponin I (0.000-0.034) ng/mL Serum Total Protein (6.3-8.2) g/dL Albumin (3.5-5.0) g/dL Free T4 > 6.99 H (0.76-1.46) ng/dL TSH 3rd Generation < 0.015 L (0.47-4.68) mIU/L Slides for Path Review 09/24/19 09/24/19 09/24/19 Range/Units 04:25 04:25 04:25 WBC 14.0 H (4.0-10.5) K/mm3 RBC 4.51 (4.1-5.4) M/mm3 Hgb 12.7 (12.0-16.0) gm/dl Hct 39.3 (35-47) % MCV 87.1 (78-100) fl MCH 28.2 (26-32) pg MCHC 32.3 (32-36) g/dl RDW 14.9 H (11.5-14.0) % Plt Count 225 (150-450) K/mm3 MPV 11.7 H (7.5-11.0) fl Gran % 91.4 H (36.0-66.0) % Eos # (Auto) 0.01 (0-0.5) Absolute Lymphs (auto) 0.29 L (1.0-4.6) Absolute Monos (auto) 0.89 (0.0-1.3) Lymphocytes % 2.1 L (24.0-44.0) % Monocytes % 6.3 (0.0-12.0) % Eosinophils % 0.1 (0.00-5.0) % Basophils % 0.1 (0.0-0.4) % Absolute Granulocytes 12.81 H (1.4-6.9) Basophils # 0.02 (0-0.4) Puncture Site pCO2 (35-45) mmHg pO2 (75-100) mmHg Base Excess (-2.0-2.0) O2 Saturation (94-100) g/dF ABG pH (7.35-7.45) ABG HCO3 (22-28) ABG O2 Sat (Measured) (95-100) % Joselito Test A-a Gradient a/A Ratio Hemoglobin Carboxyhemoglobin (0.0-6.9) % THgb Methemoglobin (1.4-1.5) % Potassium 2.6 L* D (3.5-5.1) Temperature C POC O2 Flow Rate % Sodium 142 (137-145) mmol/L Chloride 107 (98-107) mmol/L Carbon Dioxide 24 (22-30) mmol/L Anion Gap 13.8 (5-15) MEQ/L BUN 26 H (7-17) mg/dL Creatinine 0.59 (0.52-1.04) mg/dL Estimated GFR > 60.0 ML/MIN Glucose 171 H (74-106) mg/dL Calcium 9.6 (8.4-10.2) mg/dL Magnesium 1.2 L (1.6-2.3) mg/dL Total Bilirubin 1.40 H (0.2-1.3) mg/dL AST 50 H (14-36) U/L ALT 38 H (0-35) U/L Alkaline Phosphatase 112 (38-126) U/L Troponin I 0.093 H* (0.000-0.034) ng/mL Serum Total Protein 6.5 (6.3-8.2) g/dL Albumin 3.5 (3.5-5.0) g/dL Free T4 > 6.99 H (0.76-1.46) ng/dL TSH 3rd Generation < 0.015 L (0.47-4.68) mIU/L Slides for Path Review YES Radiology Exams: Radiology Procedures Category Date Time Status CHEST 1 VIEW (PORTABLE) Stat Exams 09/22/19 11:16 Completed Multi-Disciplinary Progress Notes: Multi-Disciplinary Progress Notes 09/23/19 11:30 Case Management Note by Hanh Saul ATTEMPTED TO REACH PATIENT'S SON ADRIANA-NO ANSWER AT THIS TIME Initialized on 09/23/19 11:30 - END OF NOTE Assessment/Plan (1) Hyperthyroidism with storm Current Visit: Yes Status: Acute Qualifiers: Thyrotoxicosis type: unspecified thyrotoxicosis type Qualified Code(s): E05.91 - Thyrotoxicosis, unspecified with thyrotoxic crisis or storm Assessment & Plan: Unable to take po meds. I have contacted her PCP; I understand that pt is a DNR , so I don't know if family just wishes to continue care here or entertain the idea of transfer. Add IV steroid. Code(s): E05.91 - THYROTOXICOSIS, UNSPECIFIED WITH THYROTOXIC CRISIS OR STORM (2) Altered mental status Current Visit: Yes Status: Acute Qualifiers: Altered mental status type: delirium Qualified Code(s): R41.0 - Disorientation, unspecified Code(s): R41.82 - ALTERED MENTAL STATUS, UNSPECIFIED (3) Atrial fibrillation with RVR Current Visit: Yes Status: Acute Code(s): I48.91 - UNSPECIFIED ATRIAL FIBRILLATION (4) Elevated troponin Current Visit: Yes Status: Acute Assessment & Plan: Dr. Cross consulted, thank you. Code(s): R79.89 - OTHER SPECIFIED ABNORMAL FINDINGS OF BLOOD CHEMISTRY (5) Diabetes mellitus Current Visit: Yes Status: Acute Qualifiers: Diabetes mellitus type: type 2 Diabetes mellitus fdc insulin use: without ad terminal makeup operator use Diabetes mellitus complication status: without complication Qualified Code(s): E11.9 - Type 2 diabetes mellitus without complications Assessment & Plan: repleting IV Code(s): E11.9 - TYPE 2 DIABETES MELLITUS WITHOUT COMPLICATIONS (6) Hypomagnesemia Current Visit: Yes Status: Acute Code(s): E83.42 - HYPOMAGNESEMIA
[2019-09-24] MEDS ORDERED: solu-MEDROL 125 MG IV SCH (09:00)
[2019-09-24] MEDS: Inderal 20 MG PO SCH (10:06)
[2019-09-24] MEDS: LASIX 20 MG PO SCH (10:06)
[2019-09-24] MEDS: Lugol's Solution PO SCH (10:17)
== END 2019-09-24 12:08 | disposition expired | DRG 308 ==
LOC: ED 11:10 → ICU 13:50
PROVIDERS: ADMIT Family Medicine; ATTEND Family Medicine
DX: I48.91 Unspecified atrial fibrillation (principal); E05.91 Thyrotoxicosis, unspecified with thyrotoxic crisis or storm; R79.89 Other specified abnormal findings of blood chemistry; R41.0 Disorientation, unspecified; E11.9 Type 2 diabetes mellitus without complications; E83.42 Hypomagnesemia; J44.9 Chronic obstructive pulmonary disease, unspecified; Z79.899 Other long term (current) drug therapy
CPT/HCPCS: 36415; 36600; 71045; 80053; 80061; 81001; 82150; 82375; 82803; 82805; 83605; 83690; 83721; 83735; 84439; 84443; 84484; 85025; 85379; 85610; 85652; 85730; 87077; 87086; 87186; 93005; 94640; 94760; 96374; 99285; 99291; J1630; J1940; J2060; J2930; J3475; J3480; A9270-GY